=== PATIENT | male | born 1980 | race Caucasian/White ===

== ENCOUNTER 2018-01-10 03:28 | Inpatient (IN) ==
[2018-01-10] MEDS ORDERED: *HR* OxyCODONE Immed Rel 5 MG TABLET PO PRN (07:30)
[2018-01-10] MEDS ORDERED: Naloxone 0.4 MG/ML INJ IVP PRN (07:30)
[2018-01-10] MEDS ORDERED: *HR* HYDROcodone/Acet 5/325 mg TABLET PO PRN (07:30)
[2018-01-10] MEDS ORDERED: Acetaminophen 325 MG TABLET PO PRN (07:30)
[2018-01-10 08:03] LABS: Hematocrit 34.6 % (37.5-50.1); Hemoglobin 11.2 g/dL (12.9-16.9); Mean Corpuscular HGB Conc 32.4 g/dL (31.6-35.5); Mean Corpuscular Hemoglobin 26.3 pg (28.0-33.3); Mean Corpuscular Volume 81.2 fL (83.0-100.0); Mean Platelet Volume 9.4 fL (9.4-12.4); Platelet Count 228 K/mcL (140-400); Red Blood Count 4.26 M/mcL (4.19-5.50)
[2018-01-10 08:18] LABS: BUN/Creatinine Ratio 25 (6-26); Blood Urea Nitrogen 17 mg/dL (6-20); Carbon Dioxide 24 mEq/L (23-29); Chloride 105 mEq/L (98-107); Glucose 358 mg/dL (70-105); Osmolality,Calculated 298 (280-300); Potassium 3.9 mEq/L (3.5-5.1); Sodium 136 mEq/L (136-145); eGFR For African Americans > 60 (> 60); eGFR For Non-African Americans > 60 (> 60)
[2018-01-10] MEDS ORDERED: Dextrose Gel 15 GM/37.5 ML TUBE PO PRN ×2 (08:26)
[2018-01-10] MEDS ORDERED: *HR* Dextrose 50 % in Water (Syg) 50 ML SYRINGE IVP PRN (08:26)
[2018-01-10] MEDS ORDERED: D5% in Water 1,000 ML IVC PRN (08:26)
--- NOTE | 2018-01-10 08:40 | Internal Med History&Physical ---
Date of Encounter: 01/10/18 Time of Encounter: 08:30 Internal Medicine - H&P: HPI Chief complaint: Fever, chills leg pain Admitted From: Hospital to Hospital Transfer (from [facility]) Plans for Post Hospital Care: Home History of present illness: Mr. Noland is a 37 year old male to history of diabetes, hypertension, hyperlipidemia, status post PPM who presented to the ER at [facility] with complaints of fever and chills. He has been coming to the ER here for the past week with similar complaints. He was diagnosed with foot infection and was placed on antibiotics initially. He will return to the ER here as he continued to have fever. At that time the antibiotics were changed. Blood culture was positive for strep group B from 01/02. Repeat blood cultures since then have been negative. Patient reports that the ulcer on his left foot has been present for a while but the ulcer on his right foot has appeared only 2 weeks back. He follows up with podiatry as outpatient for his foot ulcers. He does have some pain although he has chronic numbness related to diabetic neuropathy. He denies any chest pain or palpitations. No nausea or vomiting. No abdominal pain. He was receiving Levaquin as outpatient. Past Med Surg Social Fam HX - Past Medical History Attestation: Yes The following information was validated with the patient. Source: patient Medical history: CHF, diabetes, hyperlipidemia, hypertension Additional medical history: CARDIOMEGALY, EDEL Psychiatric history: anxiety, depression - Past Surgical History Surgical History: pacemaker Additional surgical history: bladder sx,heart cath x6 - Social History Smoking Status: Never smoker Smokeless Tobacco Status: No Alcohol use: none Drug use: none - Family History Father Hx Family Cardiac Disorders: Yes (Heart disease) Mother Hx Family Cardiac Disorders: Yes (heart disease) Hx Family Cancer: Yes (Bladder cancer) Hx Family Endocrine Disorder: Yes (DM) Internal Medicine - H&P: Meds Amitriptyline [Elavil] 25 mg PO HS 01/17/17 [History] Aspirin [Lo-Dose Aspirin EC] 81 mg PO DAILY 01/17/17 [History] Carvedilol [Coreg] 6.25 mg PO BIDWM 01/17/17 [History] Codeine/Butalbital/ASA/Caffein [Fiorinal with Codeine #3 Cap] 1 each PO Q8H PRN 01/17/17 [History] Gabapentin [Neurontin] 800 mg PO QID 01/17/17 [History] Ibuprofen [Motrin] 800 mg PO Q6-8H PRN 01/17/17 [History] Isosorbide MONOnitrate (24 HR) [Imdur] 30 mg PO DAILY 01/17/17 [History] Losartan Potassium [Cozaar] 50 mg PO DAILY 01/17/17 [History] Pyridostigmine Br [Mestinon] 60 mg PO Q8H 01/17/17 [History] Ropinirole HCl [Requip] 0.5 mg PO HS 01/17/17 [History] cloNIDine HCl [CloNIDine HCl] 0.1 mg PO BID PRN 01/17/17 [History] Budesonide/Formoterol 160/4.5 [Symbicort 160/4.5] 2 puff IH BIDR 04/11/17 [ History] Metformin HCl [Metformin HCl ER] 1,000 mg PO BID 04/11/17 [History] Sertraline [Zoloft] 25 mg PO DAILY 04/11/17 [History] Albuterol Sulfate [Proair Hfa] 2 puff IH Q4H PRN 07/11/17 [History] Atorvastatin [Lipitor] 40 mg PO HS 07/11/17 [History] Baclofen [Baclofen] 20 mg PO DAILY 07/11/17 [History] Carbidopa/Levodopa [Carbidopa-Levo 10-100 mg Odt] 1 tab PO DAILY 07/11/17 [ History] Ketoconazole 2% CRM [Nizoral Cream] 1 appl TP BID 07/11/17 [History] Lactobacillus Acidophilus [Acidophilus Probiotic] 1 mg PO DAILY 07/11/17 [ History] Liraglutide [Victoza 2-Raul] 1.2 mg IJ DAILY 07/11/17 [History] Meloxicam [Mobic] 7.5 mg PO BID PRN 07/11/17 [History] Nitroglycerin [Nitrostat] 0.4 mg SL Q5M PRN 07/11/17 [History] Nystatin [Nystatin] 1 appl TP TID PRN 07/11/17 [History] Clindamycin HCl 300 mg PO QID #28 capsule 01/02/18 [Rx] Insulin Regular, Human [Humulin R U-500 Kwikpen] 70 unit SQ QAM 01/06/18 [ History] Insulin Regular, Human [Humulin R U-500 Kwikpen] 90 unit SQ QPM 01/06/18 [ History] levoFLOXacin [Levaquin] 500 mg PO DAILY #10 tablet 01/06/18 [Rx] 3 Allergy/AdvReac Type Severity Reaction Status Date / Time No Known Allergies Allergy Verified 01/06/18 19:53 All Systems PM: A 10-system review of systems was performed and is negative for pertinent findings except as documented above in the HPI. - Constitutional Constitutional: chills, fever(s), no night sweats - EENT Eyes: no change in vision, no discharge, no pain, no photophobia Ears: no ear discharge, no ear pain, no tinnitus Nose, mouth and throat: no dysphagia, no nasal discharge, no neck pain, no sore throat - Cardiovascular Cardiovascular ROS IM: no chest pain, no diaphoresis, no dyspnea, no lightheadedness, no palpitations, no syncope - Respiratory Respiratory: no cough, no dyspnea, no wheezing, no excessive phlegm production - Gastrointestinal Gastrointestinal: no abdominal pain, no diarrhea, no hematemesis, no hematochezia, no melena, no nausea, no vomiting - Musculoskeletal Musculoskeletal ROS IM: no numbness, no tingling - Integumentary Integumentary IM: skin ulcer, no rash, no unusual bruising - Neurological Neurological ROS: no confusion, no convulsions, no focal weakness, no numbness, no tingling, no tremor(s) - Hematologic/Lymphatic Hematologic/Lymphatic: no easy bruising - Constitutional Vitals: Temp Pulse Resp BP Pulse Ox 97.7 F 74 16 128/63 98 01/10/18 07:23 01/10/18 07:23 01/10/18 07:23 01/10/18 07:23 01/10/18 07:23 General appearance: Present: cooperative, mild distress, A&O X 3, morbidly obese , pleasant, answers questions appropriately - Neck Neck exam general surgery: Present: supple, trachea midline. Absent: lymphadenopathy - Respiratory Respiratory exam: Present: CTAB. Absent: accessory muscle use, rales, rhonchi, wheezes - Cardiovascular Cardiovascular exam: Present: RRR, +S1, +S2. Absent: diastolic murmur, gallop, rubs, systolic murmur - GI/Abdominal GI/Abdominal exam: Present: normal bowel sounds, soft, no peritoneal signs. Absent: distended, tenderness - Extremities Exam Extremities exam: Present: warm, radial pulses palpable and symmetrical. Absent : calf tenderness, cyanotic, pedal edema - Neurological Exam Neurological exam: Present: CN II-XII intact, oriented X3, no focal deficits. Absent: facial droop, speech deficit - Skin Skin exam: Present: dry, intact Additional comments: Diabetic foot ulcers noted on both feet. On the left foot, 2 ulcers present over the plantar surface of the great toe. One appears to have scabbed over. The other one is open with clean margins. No discharge noted at this time. Ulcer on the right foot also measures 1 cm to 2 cm in size. Clean margins. No discharge noted. Nontender to palpation. Internal Med - H&P Results - Labs CBC & Chem 7: 01/10/18 07:45 01/10/18 07:45 Labs: Short CBC 01/10/18 Range/Units 07:45 WBC 13.8 H D (4.3-11.1) K/mcL Hgb 11.2 L (12.9-16.9) g/dL Hct 34.6 L (37.5-50.1) % Plt Count 228 (140-400) K/mcL BMP 01/10/18 07:45 Sodium 136 Potassium 3.9 Chloride 105 Carbon Dioxide 24 BUN 17 Creatinine 0.68 L Glucose 358 H Calcium 8.0 L - Assessment and plan (1) Sepsis Current Visit: Yes Status: Acute Assessment and plan: Patient presenting with sepsis. His vital signs at [facility] showed a blood pressure of 103.2, heart rate 113. His lactic acid was initially greater than 2 blood improved after he received IV fluids. Most likely related to diabetic foot ulcer and bacteremia. We will treat with IV antibiotics. Failed outpatient treatment. High risk for complications. Qualifiers: Sepsis type: Streptococcus group B Qualified Code(s): A40.1 - Sepsis due to streptococcus, group B (2) Diabetic foot ulcer Current Visit: Yes Status: Acute Assessment and plan: Bilateral diabetic foot ulcers. Possible source of infection. We will consult podiatry for evaluation. Qualifiers: Diabetic foot ulcer location: toe Diabetes mellitus type: type 1 Laterality: unspecified laterality Non-pressure ulcer stage: limited to breakdown of skin Qualified Code(s): E10.621 - Type 1 diabetes mellitus with foot ulcer; L97.501 - Non-pressure chronic ulcer of other part of unspecified foot limited to breakdown of skin (3) Bacteremia Current Visit: Yes Status: Acute Assessment and plan: Recent strep group B bacteremia. Repeat cultures have been negative. We will follow cultures from [facility]. We will place on IV antibiotics for now. Monitor vital signs closely. (4) Diabetes Current Visit: Yes Status: Chronic Assessment and plan: Uncontrolled. Place patient on Levemir, sliding scale insulin. Monitor blood sugars closely. I expect blood sugars will be difficult to control due to acute illness and sepsis. Qualifiers: Diabetes mellitus type: type 1 Diabetes mellitus complication status: with neurologic complications Diabetes mellitus complication detail: with polyneuropathy Qualified Code(s): E10.42 - Type 1 diabetes mellitus with diabetic polyneuropathy (5) Hypertension Current Visit: Yes Status: Chronic Assessment and plan: Blood pressure is well controlled at this time. We will continue home medications. Monitor blood pressure closely. Qualifiers: Hypertension type: essential hypertension Qualified Code(s): I10 - Essential (primary) hypertension (6) DVT prophylaxis Current Visit: Yes Status: Acute Assessment and plan: With subcutaneous heparin - Time Spent With Patient Total time spent is greater than 50% in coordination of care (as documented) at patient's floor/unit and/or counseling patient:
[2018-01-10] MEDS ORDERED: Nitroglycerin 0.4 MG TAB.SUBL SL PRN (08:46)
[2018-01-10] MEDS ORDERED: Baclofen 10 MG TABLET PO SCH (09:00)
[2018-01-10] MEDS ORDERED: Isosorbide MONOnitrate (24 HR) 30 MG TAB.ER.24H PO SCH (09:00)
[2018-01-10] MEDS ORDERED: Aspirin Enteric Coated 81 MG Tablet PO SCH (09:00)
[2018-01-10] MEDS ORDERED: Lactobacillus 1 EACH CAP.SPRINK PO SCH (09:00)
[2018-01-10 09:41] LABS: Lymphocytes # 1.1 K/mcL (0.6-4.6); Neutrophils # 12.1 K/mcL (1.6-8.9); Platelet Estimate Normal (Normal)
[2018-01-10] MEDS: Ringers Solution, Lactated 1,000 ML IVC SCH (10:22)
[2018-01-10] MEDS: Gabapentin 400 MG CAPSULE PO SCH ×4 (10:23→22:50)
[2018-01-10] MEDS: Pyridostigmine Br 60 MG TABLET PO SCH ×2 (10:25→18:53)
[2018-01-10] MEDS: Ampicillin/Sulbactam 3,000 MG in 0.9 % Sodium Chloride Mini Bag 100 ML IVPB SCH ×2 (10:27→18:53)
[2018-01-10] MEDS: Insulin LISPRO 300 UNITS/3 ML VIAL SQ SCH ×6 (10:32→18:55)
[2018-01-10] MEDS: Insulin DETEMIR 100 UNIT/ML X5UNITS SQ SCH ×2 (10:33→22:44)
[2018-01-10] MEDS: Budesonide/Formoterol 160/4.5 MDI IH SCH ×2 (11:37→22:42)
[2018-01-10 13:54] LABS: Troponin I < 0.03 ng/mL (< 0.04)
[2018-01-10] MEDS ORDERED: Perflutren Lipid Microsphere 1.3 ML in 0.9 % Sodium Chloride 8.7 ML IVP ONE (14:37)
[2018-01-10] MEDS ORDERED: Gadolinium Contrast Agent (WT Based) IV PRN (15:18)
[2018-01-10] MEDS: *HR* Heparin 5,000 UNIT/ML VIAL SQ SCH ×2 (15:35→22:51)
--- NOTE | 2018-01-10 15:36 | Podiatry Consult Note ---
Date of Encounter: 01/10/18 Time of Encounter: 12:00 Assessment and Plan (1) Diabetic foot ulcer Status: Inactive Assessment: Diabetic foot ulcerations to bilateral great toes Plan: Assessment complete at bedside Known positive blood cultures obtained There is purulent drainage and foul odor noted to left foot great toe ulceration Due to positive blood cultures will obtain MRI of bilateral great toe ulcerations to assess for underlying osteomyelitis or abscess formation Betadine applied to bilateral wounds Maxsorb AG applied to wound of left great toe with bulk dressing- will write orders for BID changes Right foot wound, adaptic and bulk dressing applied. Orders for MRI placed however patient has pacer Will obtain CT imaging at this time. Qualifiers: Diabetic foot ulcer location: toe Diabetes mellitus type: type 1 Laterality: unspecified laterality Non-pressure ulcer stage: limited to breakdown of skin Qualified Code(s): E10.621 - Type 1 diabetes mellitus with foot ulcer; L97.501 - Non-pressure chronic ulcer of other part of unspecified foot limited to breakdown of skin History of Present Illness HPI: Mr. Noland is a 37 year old male to history of diabetes, hypertension, hyperlipidemia, status post PPM who presented to the ER at [facility] with complaints of fever and chills. He has been coming to the ER here for the past week with similar complaints. He was diagnosed with foot infection and was placed on antibiotics initially. Patient was also seen in podiatry clinic 3 days ago and alerted of positive blood cultures per KULDIP Rodriguez and advised on need to start IV antibiotics. Blood culture was positive for strep group B from 01/02. Repeat blood cultures since then have been negative. Patient reports that the ulcer on his left foot has been present for a while, unknown length of time, but the ulcer on his right foot has appeared only 2 weeks back. Patient states he has occasional pain however reports profound numbness from neuropathy , patient currently reporting chest pain, states it is a 2-3/10- nurse has been contacted and states they are obtaining orders. No nausea or vomiting. No abdominal pain. He was receiving Levaquin as outpatient. No on vanc and zosyn. Patient was told per nurse his glucose very elevated, on arrival to the room patient is eating a cream filled donut. Past Med Surg Social Fam HX - Past Medical History Medical history: CHF, diabetes, hyperlipidemia, hypertension Additional medical history: CARDIOMEGALY, EDEL Psychiatric history: anxiety, depression - Past Surgical History Surgical History: pacemaker Additional surgical history: bladder sx,heart cath x6 - Social History Smoking Status: Never smoker Smokeless Tobacco Status: No Alcohol use: none Drug use: none - Family History Father Hx Family Cardiac Disorders: Yes (Heart disease) Mother Hx Family Cardiac Disorders: Yes (heart disease) Hx Family Cancer: Yes (Bladder cancer) Hx Family Endocrine Disorder: Yes (DM) Medications and Allergies Amitriptyline [Elavil] 25 mg PO HS 01/17/17 [History] Aspirin [Lo-Dose Aspirin EC] 81 mg PO DAILY 01/17/17 [History] Carvedilol [Coreg] 6.25 mg PO BIDWM 01/17/17 [History] Codeine/Butalbital/ASA/Caffein [Fiorinal with Codeine #3 Cap] 1 each PO Q8H PRN 01/17/17 [History] Gabapentin [Neurontin] 800 mg PO QID 01/17/17 [History] Ibuprofen [Motrin] 800 mg PO Q6-8H PRN 01/17/17 [History] Isosorbide MONOnitrate (24 HR) [Imdur] 30 mg PO DAILY 01/17/17 [History] Losartan Potassium [Cozaar] 50 mg PO DAILY 01/17/17 [History] Pyridostigmine Br [Mestinon] 60 mg PO Q8H 01/17/17 [History] Ropinirole HCl [Requip] 0.5 mg PO HS 01/17/17 [History] cloNIDine HCl [CloNIDine HCl] 0.1 mg PO BID PRN 01/17/17 [History] Budesonide/Formoterol 160/4.5 [Symbicort 160/4.5] 2 puff IH BIDR 04/11/17 [ History] Metformin HCl [Metformin HCl ER] 1,000 mg PO BID 04/11/17 [History] Sertraline [Zoloft] 25 mg PO DAILY 04/11/17 [History] Albuterol Sulfate [Proair Hfa] 2 puff IH Q4H PRN 07/11/17 [History] Atorvastatin [Lipitor] 40 mg PO HS 07/11/17 [History] Baclofen [Baclofen] 20 mg PO DAILY 07/11/17 [History] Carbidopa/Levodopa [Carbidopa-Levo 10-100 mg Odt] 1 tab PO DAILY 07/11/17 [ History] Ketoconazole 2% CRM [Nizoral Cream] 1 appl TP BID 07/11/17 [History] Lactobacillus Acidophilus [Acidophilus Probiotic] 1 mg PO DAILY 07/11/17 [ History] Liraglutide [Victoza 2-Raul] 1.2 mg IJ DAILY 07/11/17 [History] Meloxicam [Mobic] 7.5 mg PO BID PRN 07/11/17 [History] Nitroglycerin [Nitrostat] 0.4 mg SL Q5M PRN 07/11/17 [History] Nystatin [Nystatin] 1 appl TP TID PRN 07/11/17 [History] Clindamycin HCl 300 mg PO QID #28 capsule 01/02/18 [Rx] Insulin Regular, Human [Humulin R U-500 Kwikpen] 70 unit SQ QAM 01/06/18 [ History] Insulin Regular, Human [Humulin R U-500 Kwikpen] 90 unit SQ QPM 01/06/18 [ History] levoFLOXacin [Levaquin] 500 mg PO DAILY #10 tablet 01/06/18 [Rx] Levofloxacin [Levaquin] 750 mg PO DAILY #30 tablet 01/14/18 [Rx] Vancomycin [Vancocin (wt based)] 1,500 mg IV DAILY 30 Days vial 01/14/18 [Rx] 3 Allergy/AdvReac Type Severity Reaction Status Date / Time No Known Allergies Allergy Verified 01/06/18 19:53 All Systems Reviewed: The remainder of the systems were reviewed and are negative Physical Exam - Constitutional Vitals: Temp Pulse Resp BP Pulse Ox 97.8 F 69 16 137/79 96 01/10/18 13:41 01/10/18 13:41 01/10/18 13:41 01/10/18 13:41 01/10/18 13:41 Exam: General Examination: CONSTITUTIONAL: Alert, oriented, in no acute distress, non-toxic. EXTREMITIES: CFT 3 seconds all toes. Edema +1 and pedal pulses palpable. SKIN: Skin with decreased turgor, decreased subcutaneous tissue, skin thin and shiny with trophic changes associated with comorbidities as described in history.. NEUROLOGIC: Grossly decreased sensation, loss of protective sensation noted. SKIN: RIGHT GREAT TOE- There is a small ulceration noted to plantar aspect just proximal to the IP joint. 0.2cmx0.2cmx0.2cm ulceration. Scant serous drainage. No warmth, tenderness, erythema or edema. No odor. LEFT GREAT TOE: 2 ulcerations noted, plantar aspect of great toe, distal aspect of toe, 0.2xmx0.2cmx0.1cm ulceration with bloody drainage noted, minimal surrounding edema or erythema. Ulceration sub IP joint measuring 0.4cmx0.4cmx0.3cm with thick purulent drainage and odor, minimal surrounding edema or erythema. Mild warmth. No streaking or ascending cellulitis. Hyperkeratosis noted with undermining of 0.3cm 10oclock to 2oclock with distal aspect of toe being 12oclock. MUSCULOSKELETAL- muscle strength 5/5 and equal bilaterally. Results - Labs Result Diagrams: 01/14/18 04:07 01/14/18 04:07 Labs: Abnormal lab results WBC 13.8 K/mcL (4.3-11.1) H D 01/10/18 07:45 Hgb 11.2 g/dL (12.9-16.9) L 01/10/18 07:45 Hct 34.6 % (37.5-50.1) L 01/10/18 07:45 MCV 81.2 fL (83.0-100.0) L 01/10/18 07:45 MCH 26.3 pg (28.0-33.3) L 01/10/18 07:45 Band Neutrophils % 6.0 % (0-4) H 01/10/18 07:45 Neutrophils # 12.1 K/mcL (1.6-8.9) H 01/10/18 07:45 Creatinine 0.68 mg/dL (0.70-1.30) L 01/10/18 07:45 Glucose 358 mg/dL (70-105) H 01/10/18 07:45 POC Glucose 383 mg/dL (70-99) H 01/10/18 05:48 Calcium 8.0 mg/dL (8.6-10.3) L 01/10/18 07:45 H & H 01/10/18 Range/Units 07:45 Hgb 11.2 L (12.9-16.9) g/dL Hct 34.6 L (37.5-50.1) % All other labs normal. Consult Discharge Plan - Plan Instructions: Vancomycin (Injection), Levofloxacin (By mouth), Heart Failure ( DC), Cellulitis (DC), Diabetic Foot Care (DC), Sepsis (DC), Chronic Hypertension (DC) Additional Instructions: Take antibiotics as prescribed and follow up with PCP in 3-5 days. Keep follow up appointment with surgeon as scheduled. Follow up with ID on 01/30/18 at 0900. Return to emergency department if symptoms worsen or if new concerns arise. Referrals: Nakia Petty CNP [Advanced Practice Nurse] - 01/30/18 9:00 am Dominga Ewing CNP [Primary Care Provider] - 01/13/18 11:15 am Prescriptions: Levofloxacin [Levaquin] 750 mg PO DAILY #30 tablet Vancomycin [Vancocin (wt based)] 1,500 mg IV DAILY 30 Days vial
[2018-01-10] MEDS ORDERED: Isovue-370 500 ML INFUS..BTL IV ONE (16:19)
[2018-01-10] MEDS ORDERED: Insulin LISPRO 300 UNITS/3 ML VIAL SQ SCH (21:00)
[2018-01-11] MEDS: Ampicillin/Sulbactam 3,000 MG in 0.9 % Sodium Chloride Mini Bag 100 ML IVPB SCH ×5 (01:08→23:45)
[2018-01-11] MEDS: Pyridostigmine Br 60 MG TABLET PO SCH ×4 (01:08→23:56)
[2018-01-11] MEDS: Ringers Solution, Lactated 1,000 ML IVC SCH ×3 (03:27→21:19)
[2018-01-11 06:27] LABS: Basophils % 0.3 %; Eosinophils # 0.1 K/mcL (0.0-0.6); Eosinophils % 1.3 %; Hematocrit 33.1 % (37.5-50.1); Hemoglobin 10.6 g/dL (12.9-16.9); Immature Granulocytes % 1.3 % (0-4); Lymphocytes # 1.1 K/mcL (0.6-4.6); Lymphocytes % 15.2 %; Mean Corpuscular Hemoglobin 25.6 pg (28.0-33.3); Mean Platelet Volume 9.7 fL (9.4-12.4); Monocytes # 0.7 K/mcL (0.0-1.3); Monocytes % 9.5 %; Neutrophils # 5.2 K/mcL (1.6-8.9); Platelet Count 236 K/mcL (140-400); Red Blood Count 4.14 M/mcL (4.19-5.50); Red Cell Distribution Width 14.1 % (11.5-14.5); Segmented Neutrophils % 72.4 %
[2018-01-11 06:44] LABS: BUN/Creatinine Ratio 31 (6-26); Blood Urea Nitrogen 15 mg/dL (6-20); Calcium 8.2 mg/dL (8.6-10.3); Carbon Dioxide 26 mEq/L (23-29); Chloride 105 mEq/L (98-107); Glucose 230 mg/dL (70-105); Osmolality,Calculated 292 (280-300); Potassium 3.8 mEq/L (3.5-5.1); Sodium 137 mEq/L (136-145); eGFR For African Americans > 60 (> 60); eGFR For Non-African Americans > 60 (> 60)
--- NOTE | 2018-01-11 07:10 | Anesthesia Evaluation PreOp ---
Date of Encounter: 01/11/18 Time of Encounter: 07:30 - Past History Planned Operation: Incision and Drainage Foot Cardiac History: CHF, HTN, Arrhythmia, Pacemaker/ICD Pulmonary History: Asthma, EDEL Dx [employer]EL[employer] History: Denies Any Significant HX Other Medical History: Diabetes Type II, Other (Morbid Obesity) Anesthesia History: No Prior Anesthetic Complications Alcohol Use: none Drug use: none Medications and Allergies Amitriptyline [Elavil] 25 mg PO HS 01/17/17 [History] Aspirin [Lo-Dose Aspirin EC] 81 mg PO DAILY 01/17/17 [History] Carvedilol [Coreg] 6.25 mg PO BIDWM 01/17/17 [History] Codeine/Butalbital/ASA/Caffein [Fiorinal with Codeine #3 Cap] 1 each PO Q8H PRN 01/17/17 [History] Gabapentin [Neurontin] 800 mg PO QID 01/17/17 [History] Ibuprofen [Motrin] 800 mg PO Q6-8H PRN 01/17/17 [History] Isosorbide MONOnitrate (24 HR) [Imdur] 30 mg PO DAILY 01/17/17 [History] Losartan Potassium [Cozaar] 50 mg PO DAILY 01/17/17 [History] Pyridostigmine Br [Mestinon] 60 mg PO Q8H 01/17/17 [History] Ropinirole HCl [Requip] 0.5 mg PO HS 01/17/17 [History] cloNIDine HCl [CloNIDine HCl] 0.1 mg PO BID PRN 01/17/17 [History] Budesonide/Formoterol 160/4.5 [Symbicort 160/4.5] 2 puff IH BIDR 04/11/17 [ History] Metformin HCl [Metformin HCl ER] 1,000 mg PO BID 04/11/17 [History] Sertraline [Zoloft] 25 mg PO DAILY 04/11/17 [History] Albuterol Sulfate [Proair Hfa] 2 puff IH Q4H PRN 07/11/17 [History] Atorvastatin [Lipitor] 40 mg PO HS 07/11/17 [History] Baclofen [Baclofen] 20 mg PO DAILY 07/11/17 [History] Carbidopa/Levodopa [Carbidopa-Levo 10-100 mg Odt] 1 tab PO DAILY 07/11/17 [ History] Ketoconazole 2% CRM [Nizoral Cream] 1 appl TP BID 07/11/17 [History] Lactobacillus Acidophilus [Acidophilus Probiotic] 1 mg PO DAILY 07/11/17 [ History] Liraglutide [Victoza 2-Raul] 1.2 mg IJ DAILY 07/11/17 [History] Meloxicam [Mobic] 7.5 mg PO BID PRN 07/11/17 [History] Nitroglycerin [Nitrostat] 0.4 mg SL Q5M PRN 07/11/17 [History] Nystatin [Nystatin] 1 appl TP TID PRN 07/11/17 [History] Clindamycin HCl 300 mg PO QID #28 capsule 01/02/18 [Rx] Insulin Regular, Human [Humulin R U-500 Kwikpen] 70 unit SQ QAM 01/06/18 [ History] Insulin Regular, Human [Humulin R U-500 Kwikpen] 90 unit SQ QPM 01/06/18 [ History] levoFLOXacin [Levaquin] 500 mg PO DAILY #10 tablet 01/06/18 [Rx] 3 Allergy/AdvReac Type Severity Reaction Status Date / Time No Known Allergies Allergy Verified 01/06/18 19:53 - Meds/Allergy Pre-op Review Medications Reviewed: Yes Allergies Reviewed: Yes Beta Blockers on Current Med List: Yes (On Coreg given today 06) Anesthesia Results - Labs 01/11/18 05:55 01/11/18 05:55 - Imaging EKG: report reviewed (SR) Additional studies: ECHO 2017 EF 55%, no pulm htn Anesthesia Exam O2 Sat Weight 167.8 kg O2 Sat by Pulse Oximetry 95 O2 Sat by Pulse Oximetry 96 O2 Sat by Pulse Oximetry 97 O2 Sat by Pulse Oximetry 93 O2 Sat by Pulse Oximetry 98 O2 Sat by Pulse Oximetry 98 O2 Sat by Pulse Oximetry 96 O2 Sat by Pulse Oximetry 96 O2 Sat by Pulse Oximetry 98 O2 Sat by Pulse Oximetry 98 Vital Signs Temp Pulse Resp BP Pulse Ox 98.7 F 75 16 120/74 98 01/10/18 05:35 01/10/18 05:35 01/10/18 05:35 01/10/18 05:35 01/10/18 05:35 Vital Signs/O2 Sat/Glucose, Most Current Temp Pulse Resp BP Pulse Ox 01/11/18 06:40 97.8 F 60 18 152/102 95 01/11/18 04:00 98.0 F 60 18 133/92 96 Height: 6'1 Weight: 369 lbs NPO (# of Hours): MN Pain Scale: 0 - HEENT Pupil (Motor): Pupils equal, EOMI Mallampati: III Teeth: Normal Oral Opening: Greater than 3 - [employer] LOC: Oriented [employer] Motor: Normal RUE, Normal LUE, Normal RLE, Normal LLE, Normal Face [employer] Sensory: Normal: RUE, LUE, LLE, Face, Deficit: RLE - Cardiac Rhythm: Regular Murmur: None JVD: No Carotid Bruit: No - Pulmonary Breath Sounds: bilateral Clear Respiratory Effort: Symmetrical Anesthesia Assess/Plan ASA Score: 4 (Hx CHF HTN EDEL Morbid Obesity DM poorly controlled) Modified Ruperto Scale for Level of Consciousness: Cooperative, oriented, and tranquil Anesthetic Plan: MAC Monitoring Plan: Standard Monitors Recovery Plan: PACU (Discussed MAC, possible GA, agrees to proceed)
[2018-01-11] MEDS: *HR* Heparin 5,000 UNIT/ML VIAL SQ SCH ×3 (07:49→23:51)
[2018-01-11] MEDS: Insulin LISPRO 300 UNITS/3 ML VIAL SQ SCH ×6 (07:49→21:09)
[2018-01-11] MEDS ORDERED: *HR* Midazolam HCl 2 MG/2 ML VIAL ONE (07:55)
[2018-01-11] MEDS ORDERED: *HR* FentaNYL (PF) 100 MCG/2 ML VIAL ONE (07:55)
[2018-01-11] MEDS ORDERED: Acetaminophen IV 1,000 MG/100 ML INFUS..BTL ONE (07:56)
[2018-01-11] MEDS ORDERED: Famotidine 20 MG/2 ML VIAL ONE (07:56)
--- NOTE | 2018-01-11 08:03 | Podiatry Progress Note ---
Date of Encounter: 01/11/18 Time of Encounter: 07:00 - Assessment and Plan (1) Type 2 diabetes mellitus with foot ulcer Current Visit: Yes Status: Acute see below Qualifiers: Diabetes mellitus shelter insulin use: with shelter use Qualified Code( s): E11.621 - Type 2 diabetes mellitus with foot ulcer; L97.509 - Non-pressure chronic ulcer of other part of unspecified foot with unspecified severity; Z79.4 - [facility] (current) use of insulin (2) Chronic ulcer of left foot with fat layer exposed Current Visit: Yes Status: Acute left foot ulceration into subcutaneous tissue with purulent drainage/diabetic foot infection. per patient erythema to groin prior to IV abx. right hallux edematous without erythema but always looks like this and no change from previous, left foot big toe is where infection (erythema and streaking to groin ) began. I had a thorough review with the patient regarding his history/condition, CT scan, my findings and treatment options. We discussed an incision and drainage of the left big toe as this is been reported as the area where his infection this admission and has begun. It appears that the right hallux is at the baseline with previously treated osteomyelitis. Patient does not want to do anything to this toe. The left hallux incision and drainage and bone biopsy nature of the procedures discussed, risks versus benefits potential complications consequences discussed. No guarantees made as to the outcome. He understood that he could have persistent infection in the left toe and this procedure is not addressing anything in the right foot big toe which he says is unchanged. All of his questions were answered and the informed consent was signed. It was made clear that he could need subsequent surgery in the future. Nothing by mouth. Subjective Interval history: 37 year old diabetic male with pacemaker came to the ER at [facility] with complaints of fever and chills. He has been coming to the ER here for the past week with similar complaints. He was diagnosed with foot infection and was placed on antibiotics initially. He says he had redness going from his left big toe all the way to his groin area. Patient was also seen in podiatry clinic recently and alerted of positive blood cultures found by podiatry MANAGER OCCUPATIONAL, Michael and advised on need to start IV antibiotics. Blood culture was positive for strep group B from 01/02. Repeat blood cultures since then have been negative. Patient reports that the ulcer on his left foot has been present for a while, unknown length of time. He says his right foot big toe he has been dealing with for a while (months) and it has not been red and not swollen more than normal. He has been seeing Dr. Galeano for a wound on the right foot toe. He says all of the redness and issues have been from the left foot big toe. Patient states he has occasional pain however reports profound neuropathy, No nausea or vomiting. Objective - Vital Signs Vital Signs: Vital Signs Temp Pulse Resp BP Pulse Ox 01/11/18 06:40 97.8 F 60 18 152/102 95 01/11/18 04:00 98.0 F 60 18 133/92 96 01/11/18 01:36 98.3 F 59 18 125/85 97 01/10/18 22:43 18 93 01/10/18 22:36 98.1 F 73 18 138/84 98 01/10/18 16:50 97.8 F 68 15 139/80 98 01/10/18 13:41 97.8 F 69 16 137/79 96 01/10/18 11:38 16 96 01/10/18 10:22 98 F 67 17 126/85 98 Intake and Output 01/10/18 01/11/18 01/11/18 23:59 07:59 15:59 Intake Total 1580 / 1580 100 / 100 Output Total 500 / 500 Balance 1580 / 1580 -400 / -400 Intake: IV Fluids 1100 / 1100 100 / 100 Lactated Ringers 1,000 ML @ 75 1000 / 1000 mls/hr IVC .[id number] [facility] Rx#: [id number] Unasyn 3,000 MG In 0.9 % Sodium 100 / 100 100 / 100 Chloride (Mini-Bag +) 100 ML @ 200 mls/hr IVPB Q6HR [facility] Rx#: [id number] Oral 480 / 480 Output: Urine 500 / 500 Other: Meal Lunch Percent of Meal Consumed 100% # Voids 1 2 Weight 167.8 kg Blood Glucose* 210 242 Patient Weight 01/11/18 23:59 Weight 167.8 kg - Exam Exam: well developed and nourished male in no acute distress Vasc: CFT < 3 sec x 5 digits b/l feet. feet are warm to touch. +pedal hairgrowth. left plantar hallux ulceration with purulent drainage [id number]. mild erythema plantarly, resolved ascending erythema. right hallux ulceration plantarly no erythema, hallux is edematous. discomfort with compression of left hallux, absent protective sensation. CT chronic osteomyelitis right hallux, left no osteomyelitis. - Lab Result Diagrams: 01/11/18 05:55 01/11/18 05:55 Labs: Abnormal lab results RBC 4.14 M/mcL (4.19-5.50) L 01/11/18 05:55 Hgb 10.6 g/dL (12.9-16.9) L 01/11/18 05:55 Hct 33.1 % (37.5-50.1) L 01/11/18 05:55 MCV 80.0 fL (83.0-100.0) L 01/11/18 05:55 MCH 25.6 pg (28.0-33.3) L 01/11/18 05:55 Band Neutrophils % 6.0 % (0-4) H 01/10/18 07:45 Creatinine 0.48 mg/dL (0.70-1.30) L 01/11/18 05:55 BUN/Creatinine Ratio 31 (6-26) H 01/11/18 05:55 Glucose 230 mg/dL (70-105) H 01/11/18 05:55 POC Glucose 323 mg/dL (70-99) H 01/10/18 16:50 Calcium 8.2 mg/dL (8.6-10.3) L 01/11/18 05:55 Consult Discharge Plan - Plan Referrals: Dominga Ewing CNP [Primary Care Provider] - 01/13/18 11:15 am
[2018-01-11] MEDS ORDERED: Vancomycin 1,000 MG VIAL ONE (08:05)
[2018-01-11] MEDS ORDERED: Lidocaine 1% 20 ML MDV ONE (08:05)
[2018-01-11] MEDS ORDERED: Bupivacaine-MPF 0.25% 10 ML VIAL ONE (08:05)
[2018-01-11] MEDS ORDERED: Propofol 500 MG/50 ML INFUS..BTL ONE (08:44)
[2018-01-11] MEDS ORDERED: *HR* Dextrose 50 % in Water (Syg) 50 ML SYRINGE IVP PRN (08:59)
[2018-01-11] MEDS ORDERED: Dextrose Gel 15 GM/37.5 ML TUBE PO PRN ×2 (08:59)
[2018-01-11] MEDS ORDERED: D5% in Water 1,000 ML IVC PRN (08:59)
[2018-01-11] MEDS ORDERED: Naloxone 0.4 MG/ML INJ IVP PRN (08:59)
[2018-01-11] MEDS ORDERED: *HR* HYDROcodone/Acet 5/325 mg TABLET PO PRN (08:59)
[2018-01-11] MEDS ORDERED: Nitroglycerin 0.4 MG TAB.SUBL SL PRN (08:59)
[2018-01-11] MEDS ORDERED: Baclofen 10 MG TABLET PO SCH (09:00)
--- NOTE | 2018-01-11 09:00 | Anesthesia Evaluation Post Op ---
Date of Encounter: 01/11/18 Time of Encounter: 09:00 - Vital Signs Vital Signs: Vital Signs/O2 Sat/Glucose, Most Current Temp Pulse Resp BP Pulse Ox 01/11/18 06:40 97.8 F 60 18 152/102 95 - Lungs Lungs: Clear Ascult./Percussion - Airway Airway: Non-obstructed - Cardiovascular Regular Rate - Mental Status Mental Status: Alert & Oriented, Answers Appropriately - Pain Pain Scale: 0 - Nausea Vomiting Nausea Vomiting: Not Present - Hydration Hydration: NPO - Discharge PostOp Status: Transfer Patient to floor
--- NOTE | 2018-01-11 09:03 | Operative Note ---
Date of procedure: 01/11/18 Pre-op diagnosis: diabetic foot infection, left hallux ulceration [id number] Post-op diagnosis: same Procedure: incision and drainage left hallux bone biopsy left hallux Implants: none Complications: none Anesthesia: MAC Local Anesthetics: 1% Lidocaine HCL SubQ (cc) Surgeon: Anthony Jenkins Was there an historian research assistant present: No Estimated blood loss (cc): 3 Specimen: left hallux culture, path-left big toe bone Condition: stable Disposition: PACU Procedure in Detail: Indications: 37-year-old diabetic male admitted with bacteremia and reported cellulitis and streaking going from his left big toe to his groin. Erythema was resolving with IV antibiotics. There was purulent drainage in the ulceration on the plantar aspect of the left hallux. Unable to have MRI due to pacemaker. Patient brought to the operating room for an incision and drainage of the left hallux and bone biopsy. Nature procedure, risks first benefits potential complications and consequences of surgery and his condition discussed at length. No guarantees made as to the outcome. Patient understood that he could require more surgery. Informed consent was signed and all questions answered. Patient was brought to the operating room placed on operating room table in the supine position 10 mL of 1% lidocaine plain was injected into the patient's left foot. Following procedures then began. Incision and drainage left foot. Attention was directed the plantar aspect of the patient's left hallux where an incision was made through the ulceration into the subcutaneous tissue which did release some purulent drainage from the plantar aspect of the hallux. Cultures were taken and sent to microbiology. The area was flushed with normal sterile saline with vancomycin. Bone biopsy left hallux. A separate incision was made on the dorsal aspect of the patient's left hallux where there was no erythema. The stab incision was made with a #15 blade down to the level of the bone and the Jamshidi needle was inserted and obtained specimens for bone biopsy. The specimens were sent to pathology. Prolene was used to close the stab incision site. The left hallux was packed open plantarly using gauze. Adaptic was use of the dorsal stab incision site. Remaining bandage consisted of 4 x 4 gauze, Kerlix and an Torres wrap. A she tolerated the anesthesia and the procedure well and was escorted the recovery room with vital signs stable and vascular status intact to the left foot noted by instant capillary refill time to all digits of the left foot. Adequate hemostasis was present at all sites. Patient will return to the floor where he will continue IV antibiotics.
[2018-01-11] MEDS: Budesonide/Formoterol 160/4.5 MDI IH SCH ×2 (10:23→20:42)
[2018-01-11] MEDS: Lactobacillus 1 EACH CAP.SPRINK PO SCH (11:06)
[2018-01-11] MEDS: Aspirin Enteric Coated 81 MG Tablet PO SCH (11:06)
[2018-01-11] MEDS: Isosorbide MONOnitrate (24 HR) 30 MG TAB.ER.24H PO SCH (11:06)
[2018-01-11] MEDS: Gabapentin 400 MG CAPSULE PO SCH ×4 (11:07→21:05)
[2018-01-11] MEDS: Insulin DETEMIR 100 UNIT/ML X5UNITS SQ SCH ×2 (11:08→21:10)
--- NOTE | 2018-01-11 11:33 | Electrocardiograph Report ---
[place] [id number] Test Date: 2018-01-10 Pat Name: Livan Noland Department: 111 Room: 2NE28 Gender: M Commodities Manager: : [id number] Requested By: Mona Martin Order Number: [id number] Reading MD: Silviano Adorno Measurements Intervals Gallina Rate: 73 P: 31 NE: 210 QRS: 8 QRSD: 117 T: 4 QT: 400 QTc: 426 Interpretive Statements SINUS RHYTHM WITH FIRST DEGREE AV BLOCK MODERATE INTRAVENTRICULAR CONDUCTION DELAY Electronically Signed On 01-11-2018 11:32:21 EDT by Silviano Adorno
--- NOTE | 2018-01-11 13:36 | Internal Med Progress Note ---
Date of Encounter: 01/11/18 Time of Encounter: 13:00 - Assessment and plan (1) Diabetic foot ulcer Current Visit: Yes Status: Acute Assessment and plan: Bilateral diabetic foot ulcers. Possible source of infection. We will consult podiatry for evaluation. 01/11: POD #0 bone biopsy of left Hallux Pain is controlled. Await culture data. Podiatry input is appreciated. Qualifiers: Diabetic foot ulcer location: toe Diabetes mellitus type: type 1 Laterality: unspecified laterality Non-pressure ulcer stage: limited to breakdown of skin Qualified Code(s): E10.621 - Type 1 diabetes mellitus with foot ulcer; L97.501 - Non-pressure chronic ulcer of other part of unspecified foot limited to breakdown of skin (2) Bacteremia Current Visit: Yes Status: Acute Assessment and plan: Recent strep group B bacteremia. Repeat cultures have been negative. We will follow cultures from [facility]. We will place on IV antibiotics for now. Monitor vital signs closely. 01/11: Patient was started on Unasyn on admission. Currently day #2 of IV Unasyn. As of yet unclear exactly what he received prior to coming here. We will need to repeat blood cultures to ensure clearance. We will also need to consult infectious diseases. (3) Sepsis Current Visit: Yes Status: Acute Assessment and plan: Patient presenting with sepsis. His vital signs at [facility] showed a blood pressure of 103.2, heart rate 113. His lactic acid was initially greater than 2 blood improved after he received IV fluids. Most likely related to diabetic foot ulcer and bacteremia. We will treat with IV antibiotics. Failed outpatient treatment. High risk for complications. 01/11: Sepsis resolving. Continue current management. Qualifiers: Sepsis type: Streptococcus group B Qualified Code(s): A40.1 - Sepsis due to streptococcus, group B (4) Diabetes Current Visit: Yes Status: Chronic Assessment and plan: Uncontrolled. Place patient on Levemir, sliding scale insulin. Monitor blood sugars closely. I expect blood sugars will be difficult to control due to acute illness and sepsis. 01/11: Continue basal bolus insulin and adjust accordingly. He was nothing by mouth for surgery, therefore we will continue to monitor prior to making additional adjustments. Check A1c. Qualifiers: Diabetes mellitus type: type 1 Diabetes mellitus complication status: with neurologic complications Diabetes mellitus complication detail: with polyneuropathy Qualified Code(s): E10.42 - Type 1 diabetes mellitus with diabetic polyneuropathy (5) DVT prophylaxis Current Visit: Yes Status: Acute Assessment and plan: With subcutaneous heparin (6) HTN (hypertension) Current Visit: Yes Status: Acute Assessment and plan: On Cozaar and Imdur, and Coreg. Monitor. May need to uptitrate as BP elevated. Qualifiers: Hypertension type: essential hypertension Qualified Code(s): I10 - Essential (primary) hypertension (7) EDEL (obstructive sleep apnea) Current Visit: Yes Status: Acute Assessment and plan: Not on CPAP - Time Spent With Patient Total time spent is greater than 50% in coordination of care (as documented) at patient's floor/unit and/or counseling patient: 25 - 35 minutes - Subjective Interval history: Mr. Noland is a 37 year old male to history of diabetes, hypertension, hyperlipidemia, status post PPM who presented to the ER at [facility] with complaints of fever and chills. He has been coming to the ER here for the past week with similar complaints. He was diagnosed with foot infection and was placed on antibiotics initially. He will return to the ER here as he continued to have fever. At that time the antibiotics were changed. Blood culture was positive for strep group B from 01/02. Repeat blood cultures since then have been negative. Patient reports that the ulcer on his left foot has been present for a while but the ulcer on his right foot has appeared only 2 weeks back. He follows up with podiatry as outpatient for his foot ulcers. He does have some pain although he has chronic numbness related to diabetic neuropathy. He denies any chest pain or palpitations. No nausea or vomiting. No abdominal pain. He was receiving Levaquin as outpatient. 01/11: Underwent incision and drainage of his left halux with bone biopsy. Patient is currently stating his pain is controlled. He is feeling well. No chest pain or shortness of breath no fevers or chills. No nausea, vomiting, diarrhea. - Constitutional Vitals: Temp Pulse Resp BP Pulse Ox 97.8 F 60 16 134/86 98 01/11/18 11:06 01/11/18 11:45 01/11/18 11:45 01/11/18 11:45 01/11/18 11:45 General appearance: Present: cooperative, mild distress, A&O X 3, morbidly obese , pleasant, answers questions appropriately - Head Head exam: Present: atraumatic, normocephalic - Eye Eye exam: Present: PERRL, conjuntiva pink, sclera anicteric Pupils: Present: PERRL - Neck Neck exam general surgery: Present: supple, trachea midline. Absent: lymphadenopathy - Respiratory Respiratory exam: Present: CTAB. Absent: accessory muscle use, rales, rhonchi, wheezes - Cardiovascular Cardiovascular exam: Present: RRR, +S1, +S2. Absent: diastolic murmur, gallop, rubs, systolic murmur - GI/Abdominal GI/Abdominal exam: Present: normal bowel sounds, soft, no peritoneal signs. Absent: distended, tenderness - Extremities Exam Extremities exam: Present: warm, radial pulses palpable and symmetrical. Absent : calf tenderness, cyanotic, pedal edema Additional comments: Both feet have dressings over them - Neurological Exam Neurological exam: Present: CN II-XII intact, oriented X3, no focal deficits. Absent: pronater drift, facial droop, speech deficit - Skin Skin exam: Present: dry, intact Internal Medicine: Result - Labs CBC & Chem 7: 01/11/18 05:55 01/11/18 05:55 Labs: Short CBC 01/11/18 Range/Units 05:55 WBC 7.2 (4.3-11.1) K/mcL Hgb 10.6 L (12.9-16.9) g/dL Hct 33.1 L (37.5-50.1) % Plt Count 236 (140-400) K/mcL Neutrophils # 5.2 (1.6-8.9) K/mcL BMP 01/10/18 01/11/18 07:45 05:55 Sodium 136 137 Potassium 3.9 3.8 Chloride 105 105 Carbon Dioxide 24 26 BUN 17 15 Creatinine 0.68 L 0.48 L Glucose 358 H 230 H Calcium 8.0 L 8.2 L Cardiac Enzymes 01/10/18 01/10/18 Range/Units 07:45 13:49 Troponin I < 0.03 < 0.03 (< 0.04) ng/mL - Impressions Impressions Echocardiogram 01/10/18 13:31 Impressions: LVEF 55-60%. Mildly dilated left ventricle. Mild concentric left ventricular hypertrophy. Right ventricle was not well visualized. No evidence of pulmonary hypertension. A device lead was visualized in the right atrium and right ventricle. No significant valvular dysfunction. Left Ventricular Wall Motion: Rest Echo Findings All wall segments showed normal motion. Findings: Study Quality * Technically sub-optimal due to body habitus. ECG Findings * Normal sinus rhythm. Left Ventricle * LVEF 55-60%. * Mildly dilated left ventricle. * Mild concentric left ventricular hypertrophy. Right Ventricle * Right ventricle was not well visualized. Left Atrium * Left atrium is not well visualized. Right Atrium * Right atrium is not well visualized. Aortic Valve * Aortic valve not well visualized. * No aortic regurgitation. * No aortic stenosis. Mitral Valve * Normal mitral valve structure and function. * No mitral regurgitation. * No mitral stenosis. Tricuspid Valve * Normal tricuspid valve structure and function. * Trace tricuspid regurgitation. * No evidence of pulmonary hypertension. Pulmonic Valve * Normal pulmonic valve structure and function. * No pulmonic regurgitation. Aorta * Normally sized aortic root. Pericardium * The pericardium appears normal. IVC * The IVC is not well evaluated. Device lead * A device lead was visualized in the right atrium and right ventricle. Pulmonary Artery * Pulmonary artery not well visualized. Foot CT 01/10/18 16:19 IMPRESSION: RIGHT FOOT: 1. Chronic osteomyelitis of the 1st toe with destructive changes of the 1st interphalangeal joint is noted on prior radiograph. Adjacent soft tissue edema consistent with cellulitis. No organized drainable fluid collection identified. Acute cannot be excluded. 2. Tenosynovitis of the flexor hallucis longus tendon. 3. Mild hindfoot and midfoot osteoarthritis. LEFT FOOT: 1. Soft tissue edema predominantly within the great toe. Correlate clinically for cellulitis. There is ulceration along the plantar aspect of the great toe. No well-defined drainable fluid collection identified within limits of the noncontrast exam. 2. No CT evidence for osteomyelitis. 3. Mild hindfoot and midfoot osteoarthritis. D/ / Gino Guo MD / Gino Guo MD Interpreting Provider: Gino Guo MD Foot CT 01/10/18 16:19 IMPRESSION: RIGHT FOOT: 1. Chronic osteomyelitis of the 1st toe with destructive changes of the 1st interphalangeal joint is noted on prior radiograph. Adjacent soft tissue edema consistent with cellulitis. No organized drainable fluid collection identified. Acute cannot be excluded. 2. Tenosynovitis of the flexor hallucis longus tendon. 3. Mild hindfoot and midfoot osteoarthritis. LEFT FOOT: 1. Soft tissue edema predominantly within the great toe. Correlate clinically for cellulitis. There is ulceration along the plantar aspect of the great toe. No well-defined drainable fluid collection identified within limits of the noncontrast exam. 2. No CT evidence for osteomyelitis. 3. Mild hindfoot and midfoot osteoarthritis. D/ / Gino Guo MD / Gino Guo MD Interpreting Provider: Gino Guo MD Consult Discharge Plan - Plan Referrals: Dominga Ewing CNP [Primary Care Provider] - 01/13/18 11:15 am
[2018-01-11] MEDS: *HR* OxyCODONE Immed Rel 5 MG TABLET PO PRN (17:29)
[2018-01-11] MEDS: Acetaminophen 325 MG TABLET PO PRN (21:07)
[2018-01-11] MEDS: Baclofen 10 MG TABLET PO SCH (21:18)
[2018-01-12] MEDS: Ampicillin/Sulbactam 3,000 MG in 0.9 % Sodium Chloride Mini Bag 100 ML IVPB SCH ×4 (05:36→23:56)
[2018-01-12 07:58] LABS: Estimated Average Glucose 286 mg/dl; Hemoglobin A1C 11.6 %
[2018-01-12] MEDS: Pyridostigmine Br 60 MG TABLET PO SCH ×3 (09:46→23:58)
[2018-01-12] MEDS: Isosorbide MONOnitrate (24 HR) 30 MG TAB.ER.24H PO SCH (09:46)
[2018-01-12] MEDS: Lactobacillus 1 EACH CAP.SPRINK PO SCH (09:47)
[2018-01-12] MEDS: Gabapentin 400 MG CAPSULE PO SCH ×4 (09:47→21:08)
[2018-01-12] MEDS: Aspirin Enteric Coated 81 MG Tablet PO SCH (09:47)
[2018-01-12] MEDS: Insulin DETEMIR 100 UNIT/ML X5UNITS SQ SCH ×2 (09:48→21:09)
[2018-01-12] MEDS: Insulin LISPRO 300 UNITS/3 ML VIAL SQ SCH ×7 (09:48→21:09)
[2018-01-12] MEDS: *HR* Heparin 5,000 UNIT/ML VIAL SQ SCH ×3 (09:49→23:56)
[2018-01-12] MEDS: Budesonide/Formoterol 160/4.5 MDI IH SCH ×2 (10:31→22:03)
[2018-01-12] MEDS: Ringers Solution, Lactated 1,000 ML IVC SCH (12:33)
[2018-01-12] MEDS: *HR* OxyCODONE Immed Rel 5 MG TABLET PO PRN ×2 (12:43→23:55)
--- NOTE | 2018-01-12 13:35 | Internal Med Progress Note ---
Date of Encounter: 01/12/18 Time of Encounter: 10:00 - Assessment and plan (1) Diabetic foot ulcer Current Visit: Yes Status: Acute Assessment and plan: Bilateral diabetic foot ulcers. Possible source of infection. We will consult podiatry for evaluation. 01/12: POD #1 bone biopsy of left Hallux Pain is controlled. Await culture data. Podiatry input is appreciated. Qualifiers: Diabetic foot ulcer location: toe Diabetes mellitus type: type 1 Laterality: unspecified laterality Non-pressure ulcer stage: limited to breakdown of skin Qualified Code(s): E10.621 - Type 1 diabetes mellitus with foot ulcer; L97.501 - Non-pressure chronic ulcer of other part of unspecified foot limited to breakdown of skin (2) Bacteremia Current Visit: Yes Status: Acute Assessment and plan: Recent strep group B bacteremia. Repeat cultures have been negative. We will follow cultures from [facility]. We will place on IV antibiotics for now. Monitor vital signs closely. 01/11: Patient was started on Unasyn on admission. Currently day #2 of IV Unasyn. As of yet unclear exactly what he received prior to coming here. We will need to repeat blood cultures to ensure clearance. We will also need to consult infectious diseases. 01/12: Day #3 IV Unasyn. Will consult ID in AM. If only concern is Beta Strep, consider change to Ancef. However given bone bx still pending, and DM wounds are often polymicrobial, will keep Unasyn for now. Repeat blood cx neg x [address] PICC once neg > 48 hours. (3) Sepsis Current Visit: Yes Status: Acute Assessment and plan: Patient presenting with sepsis. His vital signs at [facility] showed a blood pressure of 103.2, heart rate 113. His lactic acid was initially greater than 2 blood improved after he received IV fluids. Most likely related to diabetic foot ulcer and bacteremia. We will treat with IV antibiotics. Failed outpatient treatment. High risk for complications. 01/12: Sepsis resolved. Continue current management. Qualifiers: Sepsis type: Streptococcus group B Qualified Code(s): A40.1 - Sepsis due to streptococcus, group B (4) Diabetes Current Visit: Yes Status: Chronic Assessment and plan: Uncontrolled. Place patient on Levemir, sliding scale insulin. Monitor blood sugars closely. I expect blood sugars will be difficult to control due to acute illness and sepsis. 6/30: Continue basal bolus insulin and adjust accordingly. He was nothing by mouth for surgery, therefore we will continue to monitor prior to making additional adjustments. Check A1c. 01/12:BS remains in mid 200's. Patient is poor dietary compliance. Increase Levemir to 32 units subQ bid, monitor. Qualifiers: Diabetes mellitus type: type 1 Diabetes mellitus complication status: with neurologic complications Diabetes mellitus complication detail: with polyneuropathy Qualified Code(s): E10.42 - Type 1 diabetes mellitus with diabetic polyneuropathy (5) DVT prophylaxis Current Visit: Yes Status: Acute Assessment and plan: With subcutaneous heparin (6) HTN (hypertension) Current Visit: Yes Status: Acute Assessment and plan: On Cozaar and Imdur, and Coreg. Monitor. May need to uptitrate as BP elevated. Qualifiers: Hypertension type: essential hypertension Qualified Code(s): I10 - Essential (primary) hypertension (7) EDEL (obstructive sleep apnea) Current Visit: Yes Status: Acute Assessment and plan: Not on CPAP, did not tolerate - Time Spent With Patient Total time spent is greater than 50% in coordination of care (as documented) at patient's floor/unit and/or counseling patient: 25 - 35 minutes - Subjective Interval history: Mr. Noland is a 37 year old male to history of diabetes, hypertension, hyperlipidemia, status post PPM who presented to the ER at [facility] with complaints of fever and chills. He has been coming to the ER here for the past week with similar complaints. He was diagnosed with foot infection and was placed on antibiotics initially. He will return to the ER here as he continued to have fever. At that time the antibiotics were changed. Blood culture was positive for strep group B from 01/02. Repeat blood cultures since then have been negative. Patient reports that the ulcer on his left foot has been present for a while but the ulcer on his right foot has appeared only 2 weeks back. He follows up with podiatry as outpatient for his foot ulcers. He does have some pain although he has chronic numbness related to diabetic neuropathy. He denies any chest pain or palpitations. No nausea or vomiting. No abdominal pain. He was receiving Levaquin as outpatient. 01/12: Underwent incision and drainage of his left halux with bone biopsy yesterday. Patient is currently stating his pain is controlled. He is feeling well. No chest pain or shortness of breath no fevers or chills. No nausea, vomiting, diarrhea. Noted large amounts of food at bedside including pop, pizza, potato chips. - Constitutional Vitals: Temp Pulse Resp BP Pulse Ox 97.6 F 66 18 139/93 93 01/12/18 11:06 01/12/18 11:06 01/12/18 11:06 01/12/18 11:06 01/12/18 11:06 General appearance: Present: cooperative, mild distress, A&O X 3, morbidly obese , pleasant, answers questions appropriately - Head Head exam: Present: atraumatic, normocephalic - Eye Eye exam: Present: PERRL, conjuntiva pink, sclera anicteric Pupils: Present: PERRL - Neck Neck exam general surgery: Present: supple, trachea midline. Absent: lymphadenopathy - Respiratory Respiratory exam: Present: CTAB. Absent: accessory muscle use, rales, rhonchi, wheezes - Cardiovascular Cardiovascular exam: Present: RRR, +S1, +S2. Absent: diastolic murmur, gallop, rubs, systolic murmur - GI/Abdominal GI/Abdominal exam: Present: normal bowel sounds, soft, no peritoneal signs. Absent: distended, tenderness - Extremities Exam Extremities exam: Present: warm, radial pulses palpable and symmetrical. Absent : calf tenderness, cyanotic, pedal edema - Neurological Exam Neurological exam: Present: CN II-XII intact, oriented X3, no focal deficits. Absent: pronater drift, facial droop, speech deficit - Skin Skin exam: Present: dry, intact Additional comments: Dressing over feet wounds Internal Medicine: Result - Labs CBC & Chem 7: 01/11/18 05:55 01/11/18 05:55 Consult Discharge Plan - Plan Referrals: Dominga Ewing CNP [Primary Care Provider] - 01/13/18 11:15 am
--- NOTE | 2018-01-12 17:03 | Podiatry Progress Note ---
Date of Encounter: 01/12/18 Time of Encounter: 16:00 - Assessment and Plan (1) Type 2 diabetes mellitus with foot ulcer Current Visit: Yes Status: Acute see below Qualifiers: Diabetes mellitus fdc insulin use: with fdc use Qualified Code( s): E11.621 - Type 2 diabetes mellitus with foot ulcer; L97.509 - Non-pressure chronic ulcer of other part of unspecified foot with unspecified severity; Z79.4 - shelter (current) use of insulin (2) Chronic ulcer of left foot with fat layer exposed Current Visit: Yes Status: Acute left foot ulceration into subcutaneous tissue with purulent drainage/diabetic foot infection. per patient erythema to groin prior to IV abx. right hallux edematous without erythema but always looks like this and no change from previous, left foot big toe is where infection (erythema and streaking to groin ) began. patient doing well, no complaints. no purulence from the left foot plantar hallux wound today. f/u culture and biopsy results. c/w current wound care adaptic, 4x4 gauze, and racheal. weight bearing on heel in surgical shoe. f/u with Dr. Galeano in wound care upon discharge. Subjective Interval history: 37 year old diabetic male with pacemaker came to the ER at [facility] with complaints of fever and chills. He has been coming to the ER here for the past week with similar complaints. He was diagnosed with foot infection and was placed on antibiotics initially. He says he had redness going from his left big toe all the way to his groin area. Patient was also seen in podiatry clinic recently and alerted of positive blood cultures found by podiatry BUG TRIMMER, Michael and advised on need to start IV antibiotics. Blood culture was positive for strep group B from 01/02. Repeat blood cultures since then have been negative. Patient reports that the ulcer on his left foot has been present for a while, unknown length of time. He says his right foot big toe he has been dealing with for a while (months) and it has not been red and not swollen more than normal. He has been seeing Dr. Galeano for a wound on the right foot toe. He says all of the redness and issues have been from the left foot big toe. Patient states he has occasional pain however reports profound neuropathy, No nausea or vomiting. Objective - Vital Signs Vital Signs: Vital Signs Temp Pulse Resp BP Pulse Ox 01/12/18 15:40 98.1 F 63 18 156/94 98 01/12/18 11:06 97.6 F 66 18 139/93 93 01/12/18 06:47 98.2 F 61 18 154/98 96 01/12/18 04:00 98.1 F 60 18 148/95 97 01/11/18 23:35 98.1 F 70 16 149/95 97 01/11/18 20:43 16 99 01/11/18 19:55 98.1 F 73 18 132/85 97 Intake and Output 01/12/18 01/12/18 01/12/18 07:59 15:59 23:59 Intake Total 440 / 440 1710 / 1710 Output Total 400 / 400 950 / 950 Balance 40 / 40 760 / 760 Intake: IV Fluids 200 / 200 1000 / 1000 Lactated Ringers 1,000 ML @ 75 1000 / 1000 mls/hr IVC .[id number] [facility] Rx#: [id number] Unasyn 3,000 MG In 0.9 % Sodium 200 / 200 Chloride (Mini-Bag +) 100 ML @ 200 mls/hr IVPB Q6HR [facility]SHINE Rx#: [id number] Oral 240 / 240 710 / 710 Output: Urine 400 / 400 950 / 950 Other: Meal Lunch Percent of Meal Consumed 100% Stool Size Moderate Stool Consistency formed # Voids 1 Blood Glucose* 217 152 - Lab Result Diagrams: 01/11/18 05:55 01/11/18 05:55 Labs: Abnormal lab results RBC 4.14 M/mcL (4.19-5.50) L 01/11/18 05:55 Hgb 10.6 g/dL (12.9-16.9) L 01/11/18 05:55 Hct 33.1 % (37.5-50.1) L 01/11/18 05:55 MCV 80.0 fL (83.0-100.0) L 01/11/18 05:55 MCH 25.6 pg (28.0-33.3) L 01/11/18 05:55 Band Neutrophils % 6.0 % (0-4) H 01/10/18 07:45 Creatinine 0.48 mg/dL (0.70-1.30) L 01/11/18 05:55 BUN/Creatinine Ratio 31 (6-26) H 01/11/18 05:55 Glucose 230 mg/dL (70-105) H 01/11/18 05:55 POC Glucose 210 mg/dL (70-99) H 01/10/18 22:34 Hemoglobin A1c 11.6 % (-5.6) H 01/11/18 14:04 Calcium 8.2 mg/dL (8.6-10.3) L 01/11/18 05:55 Microbiology, Last 48 Hours 01/11/18 08:45 Wound Culture - Preliminary Right Great Toe Gram Positive Cocci 01/11/18 14:04 Blood Culture - Preliminary Peripheral Venipuncture Culture is incubating and being continuously monitored for growth. Final report to follow. 01/11/18 14:04 Blood Culture - Preliminary Peripheral Venipuncture Culture is incubating and being continuously monitored for growth. Final report to follow. Consult Discharge Plan - Plan Referrals: Dominga Ewing CNP [Primary Care Provider] - 01/13/18 11:15 am
[2018-01-12] MEDS: Baclofen 10 MG TABLET PO SCH (21:08)
[2018-01-13] MEDS: Ringers Solution, Lactated 1,000 ML IVC SCH (03:15)
[2018-01-13] MEDS: Ampicillin/Sulbactam 3,000 MG in 0.9 % Sodium Chloride Mini Bag 100 ML IVPB SCH ×2 (06:06→13:22)
[2018-01-13] MEDS: Budesonide/Formoterol 160/4.5 MDI IH SCH ×2 (07:53→22:19)
[2018-01-13] MEDS: Insulin LISPRO 300 UNITS/3 ML VIAL SQ SCH ×7 (08:45→20:38)
[2018-01-13] MEDS: *HR* Heparin 5,000 UNIT/ML VIAL SQ SCH ×2 (08:47→17:13)
[2018-01-13] MEDS: Insulin DETEMIR 100 UNIT/ML X5UNITS SQ SCH ×2 (08:47→20:37)
[2018-01-13] MEDS: Gabapentin 400 MG CAPSULE PO SCH ×4 (08:48→20:35)
[2018-01-13] MEDS: Aspirin Enteric Coated 81 MG Tablet PO SCH (08:48)
[2018-01-13] MEDS: Isosorbide MONOnitrate (24 HR) 30 MG TAB.ER.24H PO SCH (08:48)
[2018-01-13] MEDS: Pyridostigmine Br 60 MG TABLET PO SCH ×2 (08:49→17:12)
[2018-01-13] MEDS: Lactobacillus 1 EACH CAP.SPRINK PO SCH (08:49)
--- NOTE | 2018-01-13 11:12 | Internal Med Progress Note ---
Date of Encounter: 01/13/18 Time of Encounter: 10:00 - Assessment and plan (1) Diabetic foot ulcer Current Visit: Yes Status: Acute Assessment and plan: Bilateral diabetic foot ulcers. Possible source of infection. We will consult podiatry for evaluation. 01/12: POD #2 bone biopsy of left Hallux, associated Osteomyeletis Pain is controlled. Await culture data. Podiatry input is appreciated. Qualifiers: Diabetic foot ulcer location: toe Diabetes mellitus type: type 1 Laterality: unspecified laterality Non-pressure ulcer stage: limited to breakdown of skin Qualified Code(s): E10.621 - Type 1 diabetes mellitus with foot ulcer; L97.501 - Non-pressure chronic ulcer of other part of unspecified foot limited to breakdown of skin (2) Bacteremia Current Visit: Yes Status: Acute Assessment and plan: Recent strep group B bacteremia. Repeat cultures have been negative. We will follow cultures from [facility] [place]. We will place on IV antibiotics for now. Monitor vital signs closely. 01/11: Patient was started on Unasyn on admission. Currently day #2 of IV Unasyn. As of yet unclear exactly what he received prior to coming here. We will need to repeat blood cultures to ensure clearance. We will also need to consult infectious diseases. 01/13: Day #4 IV Unasyn. Will consult ID in AM. If only concern is Beta Strep, consider change to Ancef. However given bone bx still pending, and DM wounds are often polymicrobial, will keep Unasyn for now. Repeat blood cx neg x 48 hrs thus [address] PICC once neg > 48 hours. Infectious Diseases condulted. (3) Sepsis Current Visit: Yes Status: Acute Assessment and plan: Patient presenting with sepsis. His vital signs at [facility] showed a blood pressure of 103.2, heart rate 113. His lactic acid was initially greater than 2 blood improved after he received IV fluids. Most likely related to diabetic foot ulcer and bacteremia. We will treat with IV antibiotics. Failed outpatient treatment. High risk for complications. 01/12: Sepsis resolved. Continue current management. Qualifiers: Sepsis type: Streptococcus group B Qualified Code(s): A40.1 - Sepsis due to streptococcus, group B (4) Diabetes Current Visit: Yes Status: Chronic Assessment and plan: Uncontrolled. Place patient on Levemir, sliding scale insulin. Monitor blood sugars closely. I expect blood sugars will be difficult to control due to acute illness and sepsis. 01/11: Continue basal bolus insulin and adjust accordingly. He was nothing by mouth for surgery, therefore we will continue to monitor prior to making additional adjustments. Check A1c. 01/13:BS remains in mid 200's. Patient is poor dietary compliance. Increase Levemir to 35 units subQ bid, monitor. A1C 11.2 Qualifiers: Diabetes mellitus type: type 1 Diabetes mellitus complication status: with neurologic complications Diabetes mellitus complication detail: with polyneuropathy Qualified Code(s): E10.42 - Type 1 diabetes mellitus with diabetic polyneuropathy (5) DVT prophylaxis Current Visit: Yes Status: Acute Assessment and plan: With subcutaneous heparin (6) HTN (hypertension) Current Visit: Yes Status: Acute Assessment and plan: On Cozaar and Imdur, and Coreg. Monitor. May need to uptitrate as BP elevated. Qualifiers: Hypertension type: essential hypertension Qualified Code(s): I10 - Essential (primary) hypertension (7) EDEL (obstructive sleep apnea) Current Visit: Yes Status: Acute Assessment and plan: Not on CPAP, did not tolerate - Time Spent With Patient Total time spent is greater than 50% in coordination of care (as documented) at patient's floor/unit and/or counseling patient: - Subjective Interval history: Mr. Noland is a 37 year old male to history of diabetes, hypertension, hyperlipidemia, status post PPM who presented to the ER at [facility] with complaints of fever and chills. He has been coming to the ER here for the past week with similar complaints. He was diagnosed with foot infection and was placed on antibiotics initially. He will return to the ER here as he continued to have fever. At that time the antibiotics were changed. Blood culture was positive for strep group B from 01/02. Repeat blood cultures since then have been negative. Patient reports that the ulcer on his left foot has been present for a while but the ulcer on his right foot has appeared only 2 weeks back. He follows up with podiatry as outpatient for his foot ulcers. He does have some pain although he has chronic numbness related to diabetic neuropathy. He denies any chest pain or palpitations. No nausea or vomiting. No abdominal pain. He was receiving Levaquin as outpatient. 01/13: Underwent incision and drainage of his left halux with bone biopsy, now POD #2. Patient is currently stating his pain is controlled. He is feeling well. No chest pain or shortness of breath no fevers or chills. No nausea, vomiting, diarrhea. Noted large amounts of food at bedside including pop, pizza, potato chips. Pt unsure why he is on mestinon. Denies hx of Myasthenia Gravis. As he has been on this chronically, will continue. - Constitutional Vitals: Temp Pulse Resp BP Pulse Ox 97.8 F 60 14 169/105 97 01/13/18 07:23 01/13/18 07:23 01/13/18 07:53 01/13/18 07:23 01/13/18 07:53 General appearance: Present: cooperative, mild distress, A&O X 3, morbidly obese , pleasant, answers questions appropriately - Head Head exam: Present: atraumatic, normocephalic - Eye Eye exam: Present: PERRL, conjuntiva pink, sclera anicteric Pupils: Present: PERRL - Neck Neck exam general surgery: Present: supple, trachea midline. Absent: lymphadenopathy - Respiratory Respiratory exam: Present: CTAB. Absent: accessory muscle use, rales, rhonchi, wheezes - Cardiovascular Cardiovascular exam: Present: RRR, +S1, +S2. Absent: diastolic murmur, gallop, rubs, systolic murmur - GI/Abdominal GI/Abdominal exam: Present: normal bowel sounds, soft, no peritoneal signs. Absent: distended, tenderness - Extremities Exam Extremities exam: Present: warm, radial pulses palpable and symmetrical. Absent : calf tenderness, cyanotic, pedal edema Additional comments: Dressing on feet - Neurological Exam Neurological exam: Present: CN II-XII intact, oriented X3, no focal deficits. Absent: pronater drift, facial droop, speech deficit - Skin Skin exam: Present: dry, intact Internal Medicine: Result - Labs CBC & Chem 7: 01/11/18 05:55 01/11/18 05:55 Consult Discharge Plan - Plan Referrals: Dominga Ewing CNP [Primary Care Provider] - 01/13/18 11:15 am
--- NOTE | 2018-01-13 16:17 | Infectious Disease Consult ---
Date of Encounter: 01/13/18 Time of Encounter: 15:39 Assessment and Plan (1) Sepsis Status: Acute Assessment and plan: The patient had three SIRS criteria on admission. Likely secondary to left foot infection. Improved. WBC normalized. Afebrile. Tachycardia resolved. Blood cultures drawn 01/02/18 were positive 1/2 sets for GBS. Repeat blood cultures drawn 01/06/18 x 2 sets are negative and 01/11/18 x 2 sets are NGTD. Qualifiers: Sepsis type: Streptococcus group B Qualified Code(s): A40.1 - Sepsis due to streptococcus, group B (2) Bacteremia Status: Acute Assessment and plan: Causative organism: GBS. Blood cultures drawn 01/02/18 were positive 1/2 sets for GBS. Repeat blood cultures drawn 01/06/18 x 2 sets are negative and 01/11/18 x 2 sets are NGTD. Source likely left foot infection. Resolved. Repeat blood cultures are negative/no growth. Discontinue Unasyn. Start Levaquin 750mg IV daily. Duration of treatment depends on the clinical picture. Monitor renal function and dose-adjust antibiotics. (3) Diabetic foot infection Status: Acute Assessment and plan: Location: Left great toe. Causative organism unclear. Previous wound culture positive for GBS, MRSA, M. morgannii, and E. coli. Likely secondary to poor hygiene and uncontrolled blood sugars. CT of the left foot showed chronic osteomyelitis of the left great toe. Podiatry consulted and following. Status post I & D of the left great toe with bone biopsy. Operative note reviewed. Pus noted intra-op. Cultures positive for GPC, final ID and sensitivities are pending. Pathology pending. Check ESR and CRP. Wound care and activity per the podiatry team. Discontinue Unasyn. Start Levaquin 750mg IV daily. Start Vancomycin IV. Pharmacy to dose. Goal trough ~15. Duration of treatment depends on the clinical picture. Monitor renal function and for drug toxicity and dose-adjust antibiotics. (4) Left leg cellulitis Status: Acute Assessment and plan: Location: Left leg. Likely secondary to left great toe ulcer infection. Causative organism likely GBS. Improved. Continue antibiotics as above. (5) Type 2 diabetes mellitus with foot ulcer Status: Acute Assessment and plan: Wound noted to the bilateral feel. Ulcers to the right foot do not appear infected. Diabetes uncontrolled. HgbA1C 11.2. Recommend aggressive glucose monitoring and control to promote wound healing and prevent re-infection. Management per the primary team. Qualifiers: Diabetes mellitus emt intermediate insulin use: with emt intermediate use Qualified Code( s): E11.621 - Type 2 diabetes mellitus with foot ulcer; L97.509 - Non-pressure chronic ulcer of other part of unspecified foot with unspecified severity; Z79.4 - senior living (current) use of insulin (6) HTN (hypertension) Status: Acute Qualifiers: Hypertension type: essential hypertension Qualified Code(s): I10 - Essential (primary) hypertension (7) EDEL (obstructive sleep apnea) Status: Acute Infectious Disease HPI - Data of Consult Patient: known to practice within the last 3 years Consult date: 01/13/18 Requesting Physician: Royal Lucas MD Primary Care Provider: Dominga Ewing CNP - Consult Narrative Reason for consult: Bacteremia, Left great toe infection History of present illness: Mr. Noland is a 37 year old male with a past medical history of CHF, cardiomyopathy status post pacemaker placement, diabetes, hyperlipidemia, hypertension, anxiety, depression, and remote history of right great toe osteomyelitis. The patient was amenable to the hospital January 10 for left foot infection. We are consulted January 13 for further recommendations for left foot infection. Briefly, the patient's a 37-year-old male with past medical history as stated above. The patient is well-known to the infectious disease services were consulted on this case during a previous episode of osteo-myelitis of the right foot. Since we saw the patient last, the patient has had chronic nonhealing ulcers to the bilateral great toes for which she has been following in the [facility] wound clinic. On January 02, the patient presented to the emergency department with complaints of left foot redness, swelling, and fever. He received a dose of IV vancomycin and a prescription for oral clindamycin and was discharged home. He had a wound culture that grew out MRSA, Morganella, Escherichia coli, and group B strep. He also had blood cultures that were +1 out of 2 sets for group B strep. At that time, he had a chest x-ray and tib-fib x-rays that were negative. He was noted to have a fever of 105.4 in the ER. Once his cultures came back positive, he was contacted and advised to come back to the emergency department. Upon arrival, the patient was afebrile and hemodynamically stable. Repeat blood cultures were obtained and were negative 2 sets. He was discharged home to complete a course of oral Levaquin. The patient continued to have persistent fevers and chills and left foot redness and swelling so he went to an outside hospital where he was noted to have a fever of 103 with tachycardia and leukocytosis and lactic acidosis. He was transferred here for further evaluation by podiatry. Since transfer here, he had a CT of the bilateral feet showed chronic osteomyelitis of the left first toe and possible cellulitis of the right great toe. Podiatry recommended surgical intervention and he was taken to the operating room on January 11 and had an I&D of the left hallux and bone biopsy. Pus was noted intraoperatively. Cultures positive for gram-positive cocci. Pathology is pending. Repeat blood cultures obtained January 11 are no growth to date 2 sets. On his last set of labs, his white blood cell count has normalized. Renal function is stable. Currently, he is on IV Unasyn. We have asked to evaluate and make further recommendations. During my exam today, the patient endorses a history as stated above. He reported fevers and chills, but no rigors. He reports chronic headaches secondary to migraines, but no neck pain or weakness or dizziness. He denied any chest pain, shortness of breath, or cough. He reported some nausea, but no vomiting. He does report some intermittent diarrhea that he attributes to his chronic medications. He denied any pain at the site of the infection, but did report redness and swelling that went all the way up to his left groin. He reported a small amount of drainage from the ulceration to the plantar aspect of the left great toe. He states that that ulceration had been there for several weeks and he is unsure what caused it. He denies any oral thrush or other skin lesions. The patient lives at home with his and children. He does not work outside the home. He states he has been swimming in his swimming pool recently, but denies any exposure to other water. He denies any alcohol, tobacco, or illicit drug use. He states his blood sugars have been relatively well controlled. CC: Royal Lucas MD Past Med Surg Social Fam HX - Past Medical History Attestation: Yes The following information was validated with the patient. Source: patient, old records reviewed, nursing notes reviewed Medical history: CHF, diabetes, hyperlipidemia, hypertension Additional medical history: CARDIOMEGALY, EDEL Psychiatric history: anxiety, depression - Past Surgical History Surgical History: pacemaker Additional surgical history: bladder sx,heart cath x6, right foot I & D - Social History Smoking Status: Never smoker Smokeless Tobacco Status: No Alcohol use: none Drug use: none Occupational status: unemployed Current living situation: Home, With Family Activity Level: Independent ambulation Recent Out of Country Travel Within the Last 8 Weeks: No Exposure or Possible Exposure to Illness During Travel: No - Family History Father Hx Family Cardiac Disorders: Yes (Heart disease) Mother Hx Family Cardiac Disorders: Yes (heart disease) Hx Family Cancer: Yes (Bladder cancer) Hx Family Endocrine Disorder: Yes (DM) Infectious Disease-CN:Meds Amitriptyline [Elavil] 25 mg PO HS 01/17/17 [History] Aspirin [Lo-Dose Aspirin EC] 81 mg PO DAILY 01/17/17 [History] Carvedilol [Coreg] 6.25 mg PO BIDWM 01/17/17 [History] Codeine/Butalbital/ASA/Caffein [Fiorinal with Codeine #3 Cap] 1 each PO Q8H PRN 01/17/17 [History] Gabapentin [Neurontin] 800 mg PO QID 01/17/17 [History] Ibuprofen [Motrin] 800 mg PO Q6-8H PRN 01/17/17 [History] Isosorbide MONOnitrate (24 HR) [Imdur] 30 mg PO DAILY 01/17/17 [History] Losartan Potassium [Cozaar] 50 mg PO DAILY 01/17/17 [History] Pyridostigmine Br [Mestinon] 60 mg PO Q8H 01/17/17 [History] Ropinirole HCl [Requip] 0.5 mg PO HS 01/17/17 [History] cloNIDine HCl [CloNIDine HCl] 0.1 mg PO BID PRN 01/17/17 [History] Budesonide/Formoterol 160/4.5 [Symbicort 160/4.5] 2 puff IH BIDR 04/11/17 [ History] Metformin HCl [Metformin HCl ER] 1,000 mg PO BID 04/11/17 [History] Sertraline [Zoloft] 25 mg PO DAILY 04/11/17 [History] Albuterol Sulfate [Proair Hfa] 2 puff IH Q4H PRN 07/11/17 [History] Atorvastatin [Lipitor] 40 mg PO HS 07/11/17 [History] Baclofen [Baclofen] 20 mg PO DAILY 07/11/17 [History] Carbidopa/Levodopa [Carbidopa-Levo 10-100 mg Odt] 1 tab PO DAILY 07/11/17 [ History] Ketoconazole 2% CRM [Nizoral Cream] 1 appl TP BID 07/11/17 [History] Lactobacillus Acidophilus [Acidophilus Probiotic] 1 mg PO DAILY 07/11/17 [ History] Liraglutide [Victoza 2-Raul] 1.2 mg IJ DAILY 07/11/17 [History] Meloxicam [Mobic] 7.5 mg PO BID PRN 07/11/17 [History] Nitroglycerin [Nitrostat] 0.4 mg SL Q5M PRN 07/11/17 [History] Nystatin [Nystatin] 1 appl TP TID PRN 07/11/17 [History] Clindamycin HCl 300 mg PO QID #28 capsule 01/02/18 [Rx] Insulin Regular, Human [Humulin R U-500 Kwikpen] 70 unit SQ QAM 01/06/18 [ History] Insulin Regular, Human [Humulin R U-500 Kwikpen] 90 unit SQ QPM 01/06/18 [ History] levoFLOXacin [Levaquin] 500 mg PO DAILY #10 tablet 01/06/18 [Rx] 3 Allergy/AdvReac Type Severity Reaction Status Date / Time No Known Allergies Allergy Verified 01/06/18 19:53 All systems: reviewed and no additional remarkable complaints except as stated Exam - Constitutional Vitals: Temp Pulse Resp BP Pulse Ox 98.0 F 60 18 157/99 97 01/13/18 11:27 01/13/18 07:23 01/13/18 11:27 01/13/18 11:27 01/13/18 07:53 General appearance: cooperative, no acute distress, obese - Head Head exam: Present: atraumatic, normal inspection, normocephalic - Eye Eye exam: Present: EOMI, normal appearance, PERRL Pupils: Present: normal accommodation Additional comments: No endocarditis stigmata noted. - ENT ENT exam: Present: mucous membranes moist - Neck Neck exam: Present: normal inspection - Respiratory Respiratory exam: Present: CTAB. Absent: rales, respiratory distress, rhonchi, wheezes - Cardiovascular Cardiovascular exam: Present: RRR, +S1, +S2 - GI/Abdominal GI/Abdominal exam: Present: normal bowel sounds, soft. Absent: distended, tenderness - Extremities Exam Extremities exam: Absent: joint swelling, pedal edema, tenderness Additional comments: Left great toe ulcer noted to the plantar aspect without drainage, erythema, or warmth. Bone biopsy site noted to the dorsal aspect of the left great toe. Right foot dressing C/D/I. - Neurological Exam Neurological exam: Present: alert, oriented X3, no focal deficits - Psychiatric Psychiatric exam: Present: normal affect, normal mood - Skin Skin exam: Present: dry, intact, normal color, warm Infectious Disease CN: Results - Labs CBC & Chem 7: 01/11/18 05:55 01/11/18 05:55 Cultures: Cultures 01/11/18 08:45 Wound Culture - Preliminary Right Great Toe Gram Positive Cocci 01/11/18 14:04 Blood Culture - Preliminary Peripheral Venipuncture Culture is incubating and being continuously monitored for growth. Final report to follow. 01/11/18 14:04 Blood Culture - Preliminary Peripheral Venipuncture Culture is incubating and being continuously monitored for growth. Final report to follow. Consult Discharge Plan - Plan Referrals: Dominga Ewing CNP [Primary Care Provider] - 01/13/18 11:15 am - Attending Attestation I examined this patient and my medical decision-making was reviewed with the Resident Physician. I agree with the documented findings, disposition and treatment plan as described except to the extent set forth below. This is an addendum to original report dictated by Nakia Petty CNP. Please refer to Flavio shukla for full detail. Patient is a 37-year-old gentleman with past medical history mentioned below including cardiomyopathy with CHF status post pacemaker placement, diabetes mellitus, hyperlipidemia, hypertension, depression with history of right great toe osteomyelitis. Patient was treated by our service previously with a wound culture that was positive for MRSA, Morganella, Escherichia coli. Patient was having sepsis like picture and left great toe osteomyelitis. Patient was also bacteremic with group B streptococcus. Rest evaluated the patient and make further recommendations. Assessment and plan: Sepsis Bacteremia Diabetic foot infection Left leg cellulitis Recommendations at this point patient is on previous cultures in was one of the patient I recommended seeing Unasyn started patient on levofloxacin and vancomycin for broader coverage. Await Intra-Op cultures to finalize await repeat cultures. Goal vancomycin trough around 15. Continue treatment for good 6 weeks. We might tailor antibiotics according to cultures on the finalize. Monitor labs and for drug toxicity.
--- NOTE | 2018-01-13 16:18 | Podiatry Progress Note ---
Date of Encounter: 01/13/18 Time of Encounter: 12:45 - Assessment and Plan (1) Diabetes Current Visit: Yes Status: Chronic Qualifiers: Diabetes mellitus type: type 1 Diabetes mellitus complication status: with neurologic complications Diabetes mellitus complication detail: with polyneuropathy Qualified Code(s): E10.42 - Type 1 diabetes mellitus with diabetic polyneuropathy (2) Diabetic foot ulcer Current Visit: Yes Status: Acute S/p incision and drainage left hallux and bone biopsy left hallux by Dr. Hatfield on 01/11/18. Ulcerations to both great toes, no regression noted, no cellulitis. Plan: F/u culture and biopsy results. Continue current wound care adaptic, 4x4 gauze, and kerlix. Weight bearing on heel in surgical shoe. F/u with Dr. Galeano in wound care upon discharge. Qualifiers: Diabetic foot ulcer location: toe Diabetes mellitus type: type 1 Laterality: unspecified laterality Non-pressure ulcer stage: limited to breakdown of skin Qualified Code(s): E10.621 - Type 1 diabetes mellitus with foot ulcer; L97.501 - Non-pressure chronic ulcer of other part of unspecified foot limited to breakdown of skin Subjective Interval history: Patient is s/p incision and drainage left hallux and bone biopsy left hallux by Dr. Hatfield on 01/11/18. Patient is sitting up in bed eating lunch and states he overall feels better. No c/o fever, chills or flu like symptoms. Dressings are dry and intact to both feet. Objective - Vital Signs Vital Signs: Vital Signs Temp Pulse Resp BP Pulse Ox 01/13/18 15:39 98.1 F 71 16 139/92 96 01/13/18 11:27 98.0 F 18 157/99 01/13/18 07:53 14 97 01/13/18 07:23 97.8 F 60 16 169/105 98 01/13/18 04:34 98.6 F 91 17 154/96 93 01/12/18 22:04 14 97 01/12/18 19:41 98.6 F 63 17 131/77 96 Intake and Output 01/13/18 01/13/18 01/13/18 07:59 15:59 23:59 Intake Total 1200 / 1200 480 / 480 Output Total 2049 / 2049 1700 / 170 Balance -850 / -850 -1220 / -1220 Intake: IV Fluids 1200 / 1200 Lactated Ringers 1,000 ML @ 75 1000 / 1000 mls/hr IVC .[id number] [facility] Rx#: [id number] Unasyn 3,000 MG In 0.9 % Sodium 200 / 200 Chloride (Mini-Bag +) 100 ML @ 200 mls/hr IVPB Q6HR [facility] Rx#: [id number] Oral 480 / 480 Output: Urine 2050 / 2050 1700 / 1700 Other: Meal Lunch Percent of Meal Consumed 100% Weight 170 kg Blood Glucose* 212 231 109 Patient Weight 01/13/18 23:59 Weight 170 kg - Exam Exam: General appearance: alert, awake, oriented X 3, calm and pleasant, no acute distress. . Vascular: Pedal pulses + 2/4 DP/PT. No evidence of cyanosis, pallor or rubor. Edema graded at 1+ /4. Skin Temperature warm to warm from toes to tibia. Homans Sign is neg. Capillary refill time is immediate to digits. . Musculoskeletal: No ecchymosis, no lumps, no deformities, no warmth,, no erythema. Mild edema. . Wound: Wound Exam: Full thickness ulceration to the distal aspect of the left great toe measuring approximately 1 cm in length x 1 cm in width x 0.5 cm in depth. Base of wound beefy red, no pus, no periwound erythema, no streaking from ulceration. Full thickness ulceration to the plantar aspect of the left great toe at the IPJ measuring 0.5 cm in length x 0.7 cm in width x 0.5 cm in depth with 90% fibrous tissue and 10% granulation tissue, no pus, no odor, no tunneling, no sinus tracts,No streaking. Superficial ulcer to the plantar aspect of the right great toe measuring 0.5 cm in diamter, base of wound is pink, no pus, no odor, no streaking, right great toe is edematous, per patient this toe looks better. - Lab Result Diagrams: 01/11/18 05:55 01/11/18 05:55 Labs: Abnormal lab results RBC 4.14 M/mcL (4.19-5.50) L 01/11/18 05:55 Hgb 10.6 g/dL (12.9-16.9) L 01/11/18 05:55 Hct 33.1 % (37.5-50.1) L 01/11/18 05:55 MCV 80.0 fL (83.0-100.0) L 01/11/18 05:55 MCH 25.6 pg (28.0-33.3) L 01/11/18 05:55 Band Neutrophils % 6.0 % (0-4) H 01/10/18 07:45 Creatinine 0.48 mg/dL (0.70-1.30) L 01/11/18 05:55 BUN/Creatinine Ratio 31 (6-26) H 01/11/18 05:55 Glucose 230 mg/dL (70-105) H 01/11/18 05:55 POC Glucose 212 mg/dL (70-99) H 01/13/18 07:27 Hemoglobin A1c 11.6 % (-5.6) H 01/11/18 14:04 Calcium 8.2 mg/dL (8.6-10.3) L 01/11/18 05:55 Microbiology, Last 48 Hours 01/11/18 08:45 Wound Culture - Preliminary Right Great Toe Gram Positive Cocci 01/11/18 14:04 Blood Culture - Preliminary Peripheral Venipuncture Culture is incubating and being continuously monitored for growth. Final report to follow. 01/11/18 14:04 Blood Culture - Preliminary Peripheral Venipuncture Culture is incubating and being continuously monitored for growth. Final report to follow. Consult Discharge Plan - Plan Referrals: Dominga Ewing, ZEFERINO [Primary Care Provider] - 01/13/18 11:15 am
[2018-01-13] MEDS: *HR* OxyCODONE Immed Rel 5 MG TABLET PO PRN (17:22)
[2018-01-13] MEDS: Baclofen 10 MG TABLET PO SCH (20:35)
[2018-01-13] MEDS: Acetaminophen 325 MG TABLET PO PRN (20:36)
[2018-01-13] MEDS: Levofloxacin 750 MG/150 ML 750 MG/150 ML BAG IVPB SCH (20:40)
[2018-01-14] MEDS: *HR* Heparin 5,000 UNIT/ML VIAL SQ SCH ×3 (00:18→16:30)
[2018-01-14] MEDS: cloNIDine HCl 0.1 MG TABLET PO PRN ×2 (00:19→12:28)
[2018-01-14] MEDS: Pyridostigmine Br 60 MG TABLET PO SCH ×3 (00:19→16:31)
[2018-01-14 04:51] LABS: C-Reactive Protein 23 mg/L (Less than 10)
[2018-01-14 07:12] LABS: Basophils % 0.7 %; Eosinophils # 0.1 K/mcL (0.0-0.6); Eosinophils % 1.6 %; Hematocrit 35.2 % (37.5-50.1); Hemoglobin 11.3 g/dL (12.9-16.9); Immature Granulocytes % 3.1 % (0-4); Lymphocytes # 1.4 K/mcL (0.6-4.6); Lymphocytes % 23.6 %; Mean Corpuscular HGB Conc 32.1 g/dL (31.6-35.5); Mean Corpuscular Volume 80.9 fL (83.0-100.0); Mean Platelet Volume 9.8 fL (9.4-12.4); Monocytes # 0.4 K/mcL (0.0-1.3); Monocytes % 7.3 %; Neutrophils # 3.7 K/mcL (1.6-8.9); Platelet Count 283 K/mcL (140-400); Red Blood Count 4.35 M/mcL (4.19-5.50); Red Cell Distribution Width 13.9 % (11.5-14.5); Segmented Neutrophils % 63.7 %
[2018-01-14 07:20] LABS: Alanine Aminotransferase 47 Units/L (7-52); Albumin 3.3 g/dL (3.5-5.7); Albumin/Globulin Ratio 1.1 (1.1-2.2); Alkaline Phosphatase 69 Units/L (34-104); Aspartate Amino Transferase 25 Units/L (13-39); BUN/Creatinine Ratio 16 (6-26); Bilirubin,Total 0.2 mg/dL (0.3-1.0); Blood Urea Nitrogen 10 mg/dL (6-20); Calcium 8.6 mg/dL (8.6-10.3); Carbon Dioxide 24 mEq/L (23-29); Chloride 104 mEq/L (98-107); Glucose 269 mg/dL (70-105); Osmolality,Calculated 297 (280-300); Potassium 3.7 mEq/L (3.5-5.1); Sodium 139 mEq/L (136-145); Total Protein 6.3 g/dL (6.4-8.9); eGFR For African Americans > 60 (> 60); eGFR For Non-African Americans > 60 (> 60)
--- NOTE | 2018-01-14 08:25 | Internal Med Progress Note ---
<Cecy Monzon N - Last Filed: 01/14/18 19:47> Date of Encounter: 01/14/18 Time of Encounter: 08:25 - Assessment and plan (1) Diabetic foot ulcer Status: Inactive Assessment and plan: Current therapy recommended by ID includes levaquin and vancomycin IV. Consult placed to PICC team today as patient will require long-term antibiotics. Patient will likely discharged tomorrow. Patient left AMA. Please see discharge summary for full discussion. Qualifiers: Diabetic foot ulcer location: toe Diabetes mellitus type: type 1 Laterality: unspecified laterality Non-pressure ulcer stage: limited to breakdown of skin Qualified Code(s): E10.621 - Type 1 diabetes mellitus with foot ulcer; L97.501 - Non-pressure chronic ulcer of other part of unspecified foot limited to breakdown of skin (2) Diabetes Status: Chronic Assessment and plan: Continue close monitoring of blood glucose and current medication regimen. Encouraged close adherence to therapy following discharge to encourage speedy wound healing and decrease risk of reinfection. Qualifiers: Diabetes mellitus type: type 1 Diabetes mellitus complication status: with neurologic complications Diabetes mellitus complication detail: with polyneuropathy Qualified Code(s): E10.42 - Type 1 diabetes mellitus with diabetic polyneuropathy (3) Bacteremia Status: Resolved Assessment and plan: Resolving. Suspect secondary to foot infection and osteomyelitis. Will continue current therapy as recommended by infectious disease. (4) Sepsis Status: Resolved Assessment and plan: Patient is currently afebrile. WBC count is within normal limits. Qualifiers: Sepsis type: Streptococcus group B Qualified Code(s): A40.1 - Sepsis due to streptococcus, group B (5) HTN (hypertension) Status: Chronic Assessment and plan: Current regimen includes Cozaar, Imdur, and Coreg. Recommend outpatient followup regarding blood pressure with medication adjustments if elevated blood pressure persists. Qualifiers: Hypertension type: essential hypertension Qualified Code(s): I10 - Essential (primary) hypertension (6) DVT prophylaxis Status: Acute Assessment and plan: Currently receiving subcutaneous heparin. (7) EDEL (obstructive sleep apnea) Status: Chronic Assessment and plan: Patient reportedly did not tolerate use of CPAP. - Time Spent With Patient Total time spent is greater than 50% in coordination of care (as documented) at patient's floor/unit and/or counseling patient: - Subjective Interval history: Mr. Noland is a 37-year old male who was admitted with a diabetic foot infection and osteomyelitis of the left great toe. He reports no events overnight, and denies any pain or discomfort from the affected side. He denies any fevers, chills, nausea, or vomiting. He does report occasional mild headaches, which are alleviated with PRN analgesics. He denies any new complaints or concerns today. - Constitutional Vitals: Temp Pulse Resp BP Pulse Ox 97.5 F L 69 16 155/106 92 01/14/18 07:30 01/14/18 07:30 01/14/18 07:30 01/14/18 07:30 01/14/18 07:30 Exam: Patient is alert and responds to questions appropriately. He appears to be resting in bed comfortably, and does not appear to be in acute distress. - Head Additional comments: Atraumatic and normocephalic. - Eye Eye exam: Present: normal appearance - Neck Additional comments: No apparent abnormalities. Neck is soft and supple with no JVD or tracheal deviation. No lymphadenopathy. - Respiratory Additional comments: Lungs clear to auscultation bilaterally. No accessory muscle use appreciated. - Cardiovascular Additional comments: Regular rate and rhythm. No murmurs, rubs, or gallops. - Extremities Exam Additional comments: Patient moves all extremities spontaneously. - Neurological Exam Additional comments: No apparent focal deficits. Internal Medicine: Result - Labs CBC & Chem 7: 01/14/18 04:07 01/14/18 04:07 Labs: Short CBC 01/14/18 Range/Units 04:07 WBC 5.8 (4.3-11.1) K/mcL Hgb 11.3 L (12.9-16.9) g/dL Hct 35.2 L (37.5-50.1) % Plt Count 283 (140-400) K/mcL Neutrophils # 3.7 (1.6-8.9) K/mcL BMP 01/14/18 04:07 Sodium 139 Potassium 3.7 Chloride 104 Carbon Dioxide 24 BUN 10 Creatinine 0.61 L Glucose 269 H Calcium 8.6 Liver Function 01/14/18 Range/Units 04:07 Total Bilirubin 0.2 L (0.3-1.0) mg/dL AST 25 (13-39) Units/L ALT 47 (7-52) Units/L Alkaline Phosphatase 69 (34-104) Units/L Albumin 3.3 L (3.5-5.7) g/dL Consult Discharge Plan - Plan Instructions: Vancomycin (Injection), Levofloxacin (By mouth), Heart Failure ( DC), Cellulitis (DC), Diabetic Foot Care (DC), Sepsis (DC), Chronic Hypertension (DC) Additional Instructions: Take antibiotics as prescribed and follow up with PCP in 3-5 days. Keep follow up appointment with surgeon as scheduled. Follow up with ID on 01/30/18 at 0900. Return to emergency department if symptoms worsen or if new concerns arise. Referrals: Nakia Petty CNP [Advanced Practice Nurse] - 01/30/18 9:00 am Dominga Ewing CNP [Primary Care Provider] - 01/13/18 11:15 am Prescriptions: Levofloxacin [Levaquin] 750 mg PO DAILY #30 tablet Vancomycin [Vancocin (wt based)] 1,500 mg IV DAILY 30 Days vial <Yanick Riley - Last Filed: 01/15/18 15:48> Date of Encounter: 01/14/18 - Assessment and plan (1) Diabetes Status: Chronic Qualifiers: Diabetes mellitus type: type 1 Diabetes mellitus complication status: with neurologic complications Diabetes mellitus complication detail: with polyneuropathy Qualified Code(s): E10.42 - Type 1 diabetes mellitus with diabetic polyneuropathy (2) Bacteremia Status: Resolved (3) Diabetic foot ulcer Status: Inactive Qualifiers: Diabetic foot ulcer location: toe Diabetes mellitus type: type 1 Laterality: unspecified laterality Non-pressure ulcer stage: limited to breakdown of skin Qualified Code(s): E10.621 - Type 1 diabetes mellitus with foot ulcer; L97.501 - Non-pressure chronic ulcer of other part of unspecified foot limited to breakdown of skin (4) Sepsis Status: Resolved Qualifiers: Sepsis type: Streptococcus group B Qualified Code(s): A40.1 - Sepsis due to streptococcus, group B (5) HTN (hypertension) Status: Chronic Qualifiers: Hypertension type: essential hypertension Qualified Code(s): I10 - Essential (primary) hypertension (6) DEEL (obstructive sleep apnea) Status: Chronic - Time Spent With Patient Total time spent is greater than 50% in coordination of care (as documented) at patient's floor/unit and/or counseling patient: - Constitutional Vitals: Temp Pulse Resp BP Pulse Ox 97.9 F 66 16 160/103 98 01/14/18 15:34 01/14/18 15:34 01/14/18 15:34 01/14/18 15:34 01/14/18 15:34 Internal Medicine: Result - Labs CBC & Chem 7: 01/14/18 04:07 01/14/18 04:07 - Attending Attestation I examined this patient and my medical decision-making was reviewed with the Resident Physician on 01/14/18. I agree with the documented findings, disposition and treatment plan as described except to the extent set forth below. Please see discharge summary of this date.
[2018-01-14] MEDS: Insulin LISPRO 300 UNITS/3 ML VIAL SQ SCH ×6 (09:20→16:33)
[2018-01-14] MEDS: Aspirin Enteric Coated 81 MG Tablet PO SCH (09:21)
[2018-01-14] MEDS: Insulin DETEMIR 100 UNIT/ML X5UNITS SQ SCH (09:21)
[2018-01-14] MEDS: Levofloxacin 750 MG/150 ML 750 MG/150 ML BAG IVPB SCH (09:22)
[2018-01-14] MEDS: Isosorbide MONOnitrate (24 HR) 30 MG TAB.ER.24H PO SCH (09:22)
[2018-01-14] MEDS: Lactobacillus 1 EACH CAP.SPRINK PO SCH (09:22)
[2018-01-14] MEDS: Gabapentin 400 MG CAPSULE PO SCH ×3 (09:22→16:31)
[2018-01-14] MEDS: Budesonide/Formoterol 160/4.5 MDI IH SCH (10:51)
--- NOTE | 2018-01-14 12:07 | Infectious Disease Progress No ---
Date of Encounter: 01/14/18 Time of Encounter: 12:05 - Assessment and Plan (1) Sepsis Current Visit: Yes Status: Resolved The patient had three SIRS criteria on admission. Likely secondary to left foot infection. Improved. WBC normalized. Afebrile. Tachycardia resolved. Blood cultures drawn 01/02/18 were positive 1/2 sets for GBS. Repeat blood cultures drawn 01/06/18 x 2 sets are negative and 01/11/18 x 2 sets are NGTD. Qualifiers: Sepsis type: Streptococcus group B Qualified Code(s): A40.1 - Sepsis due to streptococcus, group B (2) Bacteremia Current Visit: Yes Status: Resolved Causative organism: GBS. Blood cultures drawn 01/02/18 were positive 1/2 sets for GBS. Repeat blood cultures drawn 01/06/18 x 2 sets are negative and 01/11/18 x 2 sets are NGTD. Source likely left foot infection. Resolved. Repeat blood cultures are negative/no growth. Continue Levaquin 750mg IV daily. Duration of treatment depends on the clinical picture. Monitor renal function and dose-adjust antibiotics. (3) Diabetic foot infection Current Visit: Yes Status: Acute Location: Left great toe. Causative organism Enterococcus faecalis per intra-op cultures. Previous wound culture positive for GBS, MRSA, M. morgannii, and E. coli. Likely secondary to poor hygiene and uncontrolled blood sugars. Failed outpatient oral antibiotic therapy. CT of the left foot showed chronic osteomyelitis of the left great toe. Podiatry consulted and following. Status post I & D of the left great toe with bone biopsy. Operative note reviewed. Pus noted intra-op. Cultures positive for Enterococcus faecalis. Pathology negative for OM. ESR 39 and CRP 23. Wound care and activity per the podiatry team. Continue Levaquin 750mg IV daily. Continue Vancomycin IV. Pharmacy to dose. Goal trough ~15. Duration of treatment depends on the clinical picture. We will plan to treat for 2-6 weeks, based on the clinical picture and labs given the extent of the infection and the patient is at high risk for impaired healing and re-infection due to his uncontrolled diabetes. Can switch to PO Levaquin on discharge since it has high oral bioavailability. Monitor renal function and for drug toxicity and dose-adjust antibiotics. Consult VAT for PICC line placement. Will need weekly CBC, BUN/Cr, ESR, CRP, and Vanc trough. Will need weekly PICC care per protocol. Follow up with ID 01/30/18 at 0900. (4) Left leg cellulitis Current Visit: Yes Status: Acute Location: Left leg. Likely secondary to left great toe ulcer infection. Causative organism likely polymicrobial. Improved. Continue antibiotics as above. (5) Type 2 diabetes mellitus with foot ulcer Current Visit: Yes Status: Acute Wound noted to the bilateral feel. Ulcers to the right foot do not appear infected. Diabetes uncontrolled. HgbA1C 11.2. Recommend aggressive glucose monitoring and control to promote wound healing and prevent re-infection. Management per the primary team. 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 No acute events noted overnight. Patient resting quietly in bed. Denies fevers, chills, or rigors. Denies chest pain, shortness of breath, or cough. Denies nausea, vomiting, or diarrhea. Denies abdominal pain , urinary complaints, or appetite changes. Denies oral thrush or skin lesions. Denies pain at the surgical site. Infect Dis PN-Objective Data - Labs CBC & Chem 7: 01/14/18 04:07 01/14/18 04:07 Labs: Laboratory Results - last 24 hr 01/12/18 01/13/18 01/13/18 20:26 11:29 16:06 WBC RBC Hgb Hct MCV MCH MCHC RDW Plt Count MPV Immature Gran % Seg Neutrophils % Lymphocytes % Monocytes % Eosinophils % Basophils % Neutrophils # Lymphocytes # Monocytes # Eosinophils # Basophils # ESR Sodium Potassium Chloride Carbon Dioxide BUN Creatinine Est GFR ( Amer) Est GFR (Non-Af Amer) BUN/Creatinine Ratio Glucose POC Glucose 154 H 231 H 109 H Calculated Osmolality Calcium Total Bilirubin AST ALT Alkaline Phosphatase C-Reactive Protein Serum Total Protein Albumin Globulin Albumin/Globulin Ratio 01/13/18 01/14/18 01/14/18 19:41 04:07 04:07 WBC RBC Hgb Hct MCV MCH MCHC RDW Plt Count MPV Immature Gran % Seg Neutrophils % Lymphocytes % Monocytes % Eosinophils % Basophils % Neutrophils # Lymphocytes # Monocytes # Eosinophils # Basophils # ESR 39 H Sodium 139 Potassium 3.7 Chloride 104 Carbon Dioxide 24 BUN 10 Creatinine 0.61 L Est GFR ( Amer) > 60 Est GFR (Non-Af Amer) > 60 BUN/Creatinine Ratio 16 Glucose 269 H POC Glucose 283 H Calculated Osmolality 297 Calcium 8.6 Total Bilirubin 0.2 L AST 25 ALT 47 Alkaline Phosphatase 69 C-Reactive Protein 23 H Serum Total Protein 6.3 L Albumin 3.3 L Globulin 3.0 Albumin/Globulin Ratio 1.1 01/14/18 01/14/18 04:07 07:35 WBC 5.8 RBC 4.35 Hgb 11.3 L Hct 35.2 L MCV 80.9 L MCH 26.0 L MCHC 32.1 RDW 13.9 Plt Count 283 MPV 9.8 Immature Gran % 3.1 Seg Neutrophils % 63.7 Lymphocytes % 23.6 Monocytes % 7.3 Eosinophils % 1.6 Basophils % 0.7 Neutrophils # 3.7 Lymphocytes # 1.4 Monocytes # 0.4 Eosinophils # 0.1 Basophils # 0.0 ESR Sodium Potassium Chloride Carbon Dioxide BUN Creatinine Est GFR ( Amer) Est GFR (Non-Af Amer) BUN/Creatinine Ratio Glucose POC Glucose 230 H Calculated Osmolality Calcium Total Bilirubin AST ALT Alkaline Phosphatase C-Reactive Protein Serum Total Protein Albumin Globulin Albumin/Globulin Ratio Cultures: Cultures 01/11/18 08:45 Wound Culture - Final Right Great Toe Enterococcus faecalis 01/11/18 08:45 Anaerobic Culture - Preliminary Right Great Toe At this time, no anaerobic growth is present. The culture will be finalized after 5 days of incubation. 01/11/18 14:04 Blood Culture - Preliminary Peripheral Venipuncture Culture is incubating and being continuously monitored for growth. Final report to follow. 01/11/18 14:04 Blood Culture - Preliminary Peripheral Venipuncture Culture is incubating and being continuously monitored for growth. Final report to follow. Exam - Constitutional Vitals: Temp Pulse Resp BP Pulse Ox 98.8 F 70 18 166/114 94 01/14/18 11:32 01/14/18 11:32 01/14/18 11:32 01/14/18 11:32 01/14/18 11:32 General appearance: cooperative, no acute distress, obese - Head Head exam: Present: atraumatic, normal inspection, normocephalic - Eye Eye exam: Present: EOMI, normal appearance, PERRL Pupils: Present: normal accommodation - ENT ENT exam: Present: mucous membranes moist - Neck Neck exam: Present: normal inspection - Respiratory Respiratory exam: Present: CTAB. Absent: rales, respiratory distress, rhonchi, wheezes - Cardiovascular Cardiovascular exam: Present: RRR, +S1, +S2 - GI/Abdominal GI/Abdominal exam: Present: normal bowel sounds, soft. Absent: distended, tenderness - Extremities Exam Extremities exam: Absent: joint swelling, pedal edema, tenderness Additional comments: Bilateral foot dressings C/D/I. - Neurological Exam Neurological exam: Present: alert, oriented X3, no focal deficits - Psychiatric Psychiatric exam: Present: normal affect, normal mood - Skin Skin exam: Present: dry, intact, normal color, warm Consult Discharge Plan - Plan Referrals: Dominga Ewing CNP [Primary Care Provider] - 01/13/18 11:15 am Nakia Petty CNP [Advanced Practice Nurse] - 01/30/18 9:00 am Prescriptions: Levofloxacin [Levaquin] 750 mg PO DAILY #30 tablet Vancomycin [Vancocin (wt based)] 1,750 mg IV DAILY 30 Days vial - Attending Attestation I examined this patient and my medical decision-making was reviewed with the Resident Physician. I agree with the documented findings, disposition and treatment plan as described except to the extent set forth below.
[2018-01-14] MEDS ORDERED: Lidocaine 1% 20 ML MDV INFILT ONE (13:28)
[2018-01-14 15:36] VITALS: BP 160/103
--- NOTE | 2018-01-14 16:51 | Physician Discharge Referral ---
Home Health/Hosp Referral Info Transfer to: Home Health Attending Provider: Yanick Riley DO Provider in Charge Post Discharge: PCP - Diagnosis (1) Sepsis Priority: Primary Status: Resolved (2) Diabetic foot infection Priority: Primary Status: Acute (3) Diabetes Priority: Secondary Status: Chronic (4) HTN (hypertension) Priority: Secondary Status: Chronic (5) EDEL (obstructive sleep apnea) Priority: Secondary Status: Chronic - Respiratory Orders Smoking Cessation: Smoking cessation has been advised. For more information, call the [place] [employer] Quit Line at 7-734-LXJX-NOW. - Dressing/Wound Care Type of Dressing/Treatments w/Frequency: Per wound care - Diet/Nutrition Diet/Nutrition Orders: Regular (Diabetic) - Activity Activity Orders: Chair - Services Needed Following services are medically necessary services: Nursing - Transfer Medications Prescriptions: Levofloxacin [Levaquin] 750 mg PO DAILY #30 tablet Vancomycin [Vancocin (wt based)] 1,750 mg IV DAILY 30 Days vial Home Medications: Amitriptyline [Elavil] 25 mg PO HS 01/17/17 [History] Aspirin [Lo-Dose Aspirin EC] 81 mg PO DAILY 01/17/17 [History] Carvedilol [Coreg] 6.25 mg PO BIDWM 01/17/17 [History] Codeine/Butalbital/ASA/Caffein [Fiorinal with Codeine #3 Cap] 1 each PO Q8H PRN 01/17/17 [History] Gabapentin [Neurontin] 800 mg PO QID 01/17/17 [History] Ibuprofen [Motrin] 800 mg PO Q6-8H PRN 01/17/17 [History] Isosorbide MONOnitrate (24 HR) [Imdur] 30 mg PO DAILY 01/17/17 [History] Losartan Potassium [Cozaar] 50 mg PO DAILY 01/17/17 [History] Pyridostigmine Br [Mestinon] 60 mg PO Q8H 01/17/17 [History] Ropinirole HCl [Requip] 0.5 mg PO HS 01/17/17 [History] cloNIDine HCl [CloNIDine HCl] 0.1 mg PO BID PRN 01/17/17 [History] Budesonide/Formoterol 160/4.5 [Symbicort 160/4.5] 2 puff IH BIDR 04/11/17 [ History] Metformin HCl [Metformin HCl ER] 1,000 mg PO BID 04/11/17 [History] Sertraline [Zoloft] 25 mg PO DAILY 04/11/17 [History] Albuterol Sulfate [Proair Hfa] 2 puff IH Q4H PRN 07/11/17 [History] Atorvastatin [Lipitor] 40 mg PO HS 07/11/17 [History] Baclofen [Baclofen] 20 mg PO DAILY 07/11/17 [History] Carbidopa/Levodopa [Carbidopa-Levo 10-100 mg Odt] 1 tab PO DAILY 07/11/17 [ History] Ketoconazole 2% CRM [Nizoral Cream] 1 appl TP BID 07/11/17 [History] Lactobacillus Acidophilus [Acidophilus Probiotic] 1 mg PO DAILY 07/11/17 [ History] Liraglutide [Victoza 2-Raul] 1.2 mg IJ DAILY 07/11/17 [History] Meloxicam [Mobic] 7.5 mg PO BID PRN 07/11/17 [History] Nitroglycerin [Nitrostat] 0.4 mg SL Q5M PRN 07/11/17 [History] Nystatin [Nystatin] 1 appl TP TID PRN 07/11/17 [History] Clindamycin HCl 300 mg PO QID #28 capsule 01/02/18 [Rx] Insulin Regular, Human [Humulin R U-500 Kwikpen] 70 unit SQ QAM 01/06/18 [ History] Insulin Regular, Human [Humulin R U-500 Kwikpen] 90 unit SQ QPM 01/06/18 [ History] levoFLOXacin [Levaquin] 500 mg PO DAILY #10 tablet 01/06/18 [Rx] Levofloxacin [Levaquin] 750 mg PO DAILY #30 tablet 01/14/18 [Rx] Vancomycin [Vancocin (wt based)] 1,750 mg IV DAILY 30 Days vial 01/14/18 [Rx] Allergies/Adverse Reactions: 3 Allergy/AdvReac Type Severity Reaction Status Date / Time No Known Allergies Allergy Verified 01/06/18 19:53 Certification: Further, I certify that my clinical findings support that this patient is homebound (i.e. absences from home require considerable and taxing effort and are for medical reasons or [facility] or infrequently or short duration when for other reasons) because: Homebound Reason: Patient requires assistance of a person or device to safely leave home, Absences from home are contraindicated except to recieve medical care, Leaving home requires considerable and taxing effort due to condition (f) Attestation: My signature below is to certify that this patient is under my care and that I, or nurse practitioner, or a physician's assistant elementary teacher working with me, has a face-to -face encounter with this patient.
[2018-01-14] MEDS ORDERED: Aminoglycoside Consult 1 EACH MC ONE (17:58)
--- NOTE | 2018-01-14 19:03 | Discharge Summary ---
<Cecy Monzon N - Last Filed: 01/14/18 18:59> - NOTES TO OUTPATIENT PROVIDER Notes to Outpatient Provider: Patient was being treated for sepsis secondary to diabetic foot ulcer with osteomyelitis. He was receiving levaquin and vancomycin IV, with plans for vancomycin trough on 01/15 to ensure therapeutic levels were acheived. Patient left AMA on 01/14 and was advised to return to ED should symptoms worsen. Orders not resulted at time of discharge: Pending orders 01/11/18 08:45 Culture,Anaerobic [RM] Routine 01/11/18 14:04 Culture,Blood [BC] Routine Date of Encounter: 01/14/18 Time of Encounter: 04:40 - Discharge Diagnosis (2) Diabetes Priority: Secondary Status: Chronic Qualifiers: Diabetes mellitus type: type 1 Diabetes mellitus complication status: with neurologic complications Diabetes mellitus complication detail: with polyneuropathy Qualified Code(s): E10.42 - Type 1 diabetes mellitus with diabetic polyneuropathy (4) Sepsis Priority: Primary Status: Resolved Qualifiers: Sepsis type: Streptococcus group B Qualified Code(s): A40.1 - Sepsis due to streptococcus, group B (5) HTN (hypertension) Priority: Secondary Status: Chronic Qualifiers: Hypertension type: essential hypertension Qualified Code(s): I10 - Essential (primary) hypertension (7) Diabetic foot infection Priority: Secondary Status: Acute (8) EDEL (obstructive sleep apnea) Priority: Secondary Status: Chronic Hospital course: Mr. Noland was admitted from the ED on 01/10 with a diabetic foot infection that was being treated as an outpatient. He was taking levaquin but had continued fever and bacteremia. Patient met sepsis criteria upon admission. He underwent incision and drainage of his wound on 01/11. Initial antibiotic therapy included unasyn, which was changed to IV levaquin and vancomycin after preliminary bone biopsy results were received. A vancomycin trough was planned following his 4th dose of vancomycin; however, patient left AMA prior to this. Patient was counselled and educated on risks of leaving prior to completion of planned therapy, which included possible worsening of infection, dissemination of infection, and/or future surgery/amputation. Patient was alert and oriented x 3 and expressed understanding of these risks. Patient's family was present during this discussion and also voiced understanding of these risks. Patient was advised to keep all follow up appointments and to return to the ED should symptoms worsen or if new concerns were to arise. Discharge discussed with: patient, family, nurse (Nursing staff was present during patient discussion and also expressed risks to patient should he choose to leave AMA.), case management - Time Spent with Patient Total time spent providing and/or coordinating discharge services: Greater than 30 minutes - Discharge Medications Prescriptions: Levofloxacin [Levaquin] 750 mg PO DAILY #30 tablet Vancomycin [Vancocin (wt based)] 1,500 mg IV DAILY 30 Days vial Home Medications: Amitriptyline [Elavil] 25 mg PO HS 01/17/17 [History] Aspirin [Lo-Dose Aspirin EC] 81 mg PO DAILY 01/17/17 [History] Carvedilol [Coreg] 6.25 mg PO BIDWM 01/17/17 [History] Codeine/Butalbital/ASA/Caffein [Fiorinal with Codeine #3 Cap] 1 each PO Q8H PRN 01/17/17 [History] Gabapentin [Neurontin] 800 mg PO QID 01/17/17 [History] Ibuprofen [Motrin] 800 mg PO Q6-8H PRN 01/17/17 [History] Isosorbide MONOnitrate (24 HR) [Imdur] 30 mg PO DAILY 01/17/17 [History] Losartan Potassium [Cozaar] 50 mg PO DAILY 01/17/17 [History] Pyridostigmine Br [Mestinon] 60 mg PO Q8H 01/17/17 [History] Ropinirole HCl [Requip] 0.5 mg PO HS 01/17/17 [History] cloNIDine HCl [CloNIDine HCl] 0.1 mg PO BID PRN 01/17/17 [History] Budesonide/Formoterol 160/4.5 [Symbicort 160/4.5] 2 puff IH BIDR 04/11/17 [ History] Metformin HCl [Metformin HCl ER] 1,000 mg PO BID 04/11/17 [History] Sertraline [Zoloft] 25 mg PO DAILY 04/11/17 [History] Albuterol Sulfate [Proair Hfa] 2 puff IH Q4H PRN 07/11/17 [History] Atorvastatin [Lipitor] 40 mg PO HS 07/11/17 [History] Baclofen [Baclofen] 20 mg PO DAILY 07/11/17 [History] Carbidopa/Levodopa [Carbidopa-Levo 10-100 mg Odt] 1 tab PO DAILY 07/11/17 [ History] Ketoconazole 2% CRM [Nizoral Cream] 1 appl TP BID 07/11/17 [History] Lactobacillus Acidophilus [Acidophilus Probiotic] 1 mg PO DAILY 07/11/17 [ History] Liraglutide [Victoza 2-Raul] 1.2 mg IJ DAILY 07/11/17 [History] Meloxicam [Mobic] 7.5 mg PO BID PRN 07/11/17 [History] Nitroglycerin [Nitrostat] 0.4 mg SL Q5M PRN 07/11/17 [History] Nystatin [Nystatin] 1 appl TP TID PRN 07/11/17 [History] Clindamycin HCl 300 mg PO QID #28 capsule 01/02/18 [Rx] Insulin Regular, Human [Humulin R U-500 Kwikpen] 70 unit SQ QAM 01/06/18 [ History] Insulin Regular, Human [Humulin R U-500 Kwikpen] 90 unit SQ QPM 01/06/18 [ History] levoFLOXacin [Levaquin] 500 mg PO DAILY #10 tablet 01/06/18 [Rx] Levofloxacin [Levaquin] 750 mg PO DAILY #30 tablet 01/14/18 [Rx] Vancomycin [Vancocin (wt based)] 1,500 mg IV DAILY 30 Days vial 01/14/18 [Rx] Allergies/Adverse Reactions: 3 Allergy/AdvReac Type Severity Reaction Status Date / Time No Known Allergies Allergy Verified 01/06/18 19:53 Date of admission: 01/10/18 08:52 Primary care physician: Dominga Ewing CNP Consults: 01/10/18 08:25 Consult to Podiatry [CONS] Routine Consulting Provider: [facility] Reason for Consult: Bilateral great toe ulcers with sepsis Time Notified: 08:25 Call Completed: Yes 01/13/18 09:52 Consult to Infectious Diseases [CONS] Routine Consulting Provider: [facility] [place] Reason for Consult: DM foot, osteo, Gp B Strep bacteremia Time Notified: 09:53 Call Completed: Yes 01/14/18 13:28 Consult to Invasive Line Access Team [CONS] Routine Reason for Consult: Picc Line Insertion Line Type: PICC Discharging clinician: Cecy Monzon Anticipated date of discharge: 01/15/18 (Patient left AMA on 01/14/2018.) - Constitutional Vitals: Temp Pulse Resp BP Pulse Ox 97.9 F 66 16 160/103 98 01/14/18 15:34 01/14/18 15:34 01/14/18 15:34 01/14/18 15:34 01/14/18 15:34 Exam: Patient is alert and responds to questions appropriately. He appears to be resting in bed comfortably, and does not appear to be in acute distress. - Head Additional comments: Atraumatic and normocephalic. - Neck Additional comments: No apparent abnormalities. Neck is soft and supple with no JVD or tracheal deviation. No lymphadenopathy. - Respiratory Additional comments: Lungs clear to auscultation bilaterally. No accessory muscle use appreciated. - Cardiovascular Additional comments: Regular rate and rhythm. No murmurs, rubs, or gallops. - Neurological Exam Additional comments: Patient moves all extremities spontaneously. No apparent focal deficits. - Patient Status Disposition: Left Against Medical Advice Condition: Fair Functional capacity at discharge: independent ambulation Overall status at discharge: patient is not back to baseline - Discharge Instructions Instructions: Vancomycin (Injection), Levofloxacin (By mouth), Heart Failure ( DC), Cellulitis (DC), Diabetic Foot Care (DC), Sepsis (DC), Chronic Hypertension (DC) Follow Up With: Nakia Petty CNP [Advanced Practice Nurse] - 01/30/18 9:00 am Dominga Ewing CNP [Primary Care Provider] - 01/13/18 11:15 am Additional Instructions: Take antibiotics as prescribed and follow up with PCP in 3-5 days. Keep follow up appointment with surgeon as scheduled. Follow up with ID on 01/30/18 at 0900. Return to emergency department if symptoms worsen or if new concerns arise. - Diet and Activity Activity: resume usual activities as tolerated Diet: advance to your usual diet <Yanick Riley - Last Filed: 01/15/18 12:49> Orders not resulted at time of discharge: Pending orders 01/11/18 08:45 Culture,Anaerobic [RM] Routine 01/11/18 14:04 Culture,Blood [BC] Routine Date of Encounter: 01/14/18 Time of Encounter: 16:40 - Discharge Diagnosis (1) Diabetes Status: Chronic Qualifiers: Diabetes mellitus type: type 1 Diabetes mellitus complication status: with neurologic complications Diabetes mellitus complication detail: with polyneuropathy Qualified Code(s): E10.42 - Type 1 diabetes mellitus with diabetic polyneuropathy (2) Bacteremia Status: Resolved (3) Diabetic foot ulcer Priority: Primary Status: Inactive Qualifiers: Diabetic foot ulcer location: toe Diabetes mellitus type: type 1 Laterality: unspecified laterality Non-pressure ulcer stage: limited to breakdown of skin Qualified Code(s): E10.621 - Type 1 diabetes mellitus with foot ulcer; L97.501 - Non-pressure chronic ulcer of other part of unspecified foot limited to breakdown of skin (4) Sepsis Status: Resolved Qualifiers: Sepsis type: Streptococcus group B Qualified Code(s): A40.1 - Sepsis due to streptococcus, group B (5) HTN (hypertension) Status: Chronic Qualifiers: Hypertension type: essential hypertension Qualified Code(s): I10 - Essential (primary) hypertension (6) EDEL (obstructive sleep apnea) Status: Chronic Hospital course: Mr. Noland is a 37 year old male - Time Spent with Patient Total time spent providing and/or coordinating discharge services: Date of admission: 01/10/18 08:52 Primary care physician: Dominga Ewing CNP Consults: 01/10/18 08:25 Consult to Podiatry [CONS] Routine Consulting Provider: [facility] Reason for Consult: Bilateral great toe ulcers with sepsis Time Notified: 08:25 Call Completed: Yes 01/13/18 09:52 Consult to Infectious Diseases [CONS] Routine Consulting Provider: [facility] [place] Reason for Consult: DM foot, osteo, Gp B Strep bacteremia Time Notified: 09:53 Call Completed: Yes 01/14/18 13:28 Consult to Invasive Line Access Team [CONS] Routine Reason for Consult: Picc Line Insertion Line Type: PICC - Constitutional Vitals: Temp Pulse Resp BP Pulse Ox 97.9 F 66 16 160/103 98 01/14/18 15:34 01/14/18 15:34 01/14/18 15:34 01/14/18 15:34 01/14/18 15:34 - Attending Attestation I examined this patient and my medical decision-making was reviewed with the Resident Physician on 01/14/18. I agree with the documented findings, disposition and treatment plan as described except to the extent set forth below. See event note of this date.
--- NOTE | 2018-01-14 19:12 | Event Note ---
Date of Encounter: 01/14/18 Time of Encounter: 14:30 I examined this patient and my medical decision-making was reviewed with the Resident Physician on 01/14/18. I agree with the documented findings, disposition and treatment plan as described except to the extent set forth below. Mr Noland was admitted for diabetic foot infection. He was seen by ID and podiatry. He was to be discharged on IV abx later this week when dose was known and could be set up. He left AMA today. He was informed of risks. Exam Alert Mucus membranes dry Heart reg No wheeze I/P 1. Diabetic foot infection 2. Uncontrolled DM Further information and diagnoses per discharge summary of this date. D/C time 39min
== END 2018-01-14 17:59 | disposition left against medical advice (07) | DRG 710 ==
LOC: 2NENU → SUATTDRO 08:52
PROVIDERS: ADMIT Family Medicine; ATTEND Internal Medicine

== ENCOUNTER 2018-04-24 13:07 | Inpatient (IN) ==
[2018-04-24] MEDS ORDERED: *HR* HYDROcodone/Acet 10/325 mg TABLET PO ONE (13:26)
--- NOTE | 2018-04-24 13:42 | Emergency Department Note ---
Disposition Clinical Impression: Foreign body in right foot Qualifiers: Encounter type: initial encounter Qualified Code(s): S90.851A - Superficial foreign body, right foot, initial encounter Disposition: Still a Patient Condition: Good Referrals: Dominga Ewing CNP [Primary Care Provider] - General Adult HPI - General Chief complaint: ED Skin/Abscess/Foreign Body Stated complaint: "FB in L Foot" Time Seen by Provider: 04/24/18 13:21 Source: patient Limitations: no limitations - History of Present Illness HPI Narrative: ED ATTESTATION NOTE: I examined this patient and my medical decision-making was reviewed with the Resident Physician/NEWSPAPER DELIVERY COUNSELOR/PA/Student. I have personally performed a face to face evaluation on this patient & I agree with the documented findings, disposition and treatment plan as described except to the extent set forth below. Patient was seen with emergency medicine resident Dr. Greg Nesbitt please see copy of his note for details of this encounter Briefly: 37-year-old male diabetic stepped on a short tooth at home about a day or so ago was seen at an outpatient urgent care x-ray showed foreign body in the ball of his foot he was given a prescription for an antibiotic which she did not fill normal S1 it is he is coming back for increased pain and drainage. He does have a follow-up appointment on Saturday with the mail carrier here. Patient is otherwise afebrile with stable vital signs no signs of acute neurovascular compromise in his foot foreign body is 3 mm per radiology read and ventral to the first MTP. We will consult podiatry. Disposition pending. Pain Scale: 9 - Related Data Home Medications Medication Instructions Recorded Confirmed Amitriptyline [Elavil] 25 mg PO HS 01/17/17 01/10/18 Aspirin [Lo-Dose Aspirin EC] 81 mg PO DAILY 01/17/17 01/10/18 Carvedilol [Coreg] 6.25 mg PO BIDWM 01/17/17 01/10/18 Codeine/Butalbital/ASA/Caffein 1 each PO Q8H PRN 01/17/17 01/06/18 [Fiorinal with Codeine #3 Cap] Gabapentin [Neurontin] 800 mg PO QID 01/17/17 01/10/18 Ibuprofen [Motrin] 800 mg PO Q6-8H PRN 01/17/17 01/10/18 Isosorbide MONOnitrate (24 HR) 30 mg PO DAILY 01/17/17 01/10/18 [Imdur] Losartan Potassium [Cozaar] 50 mg PO DAILY 01/17/17 01/10/18 Pyridostigmine Br [Mestinon] 60 mg PO Q8H 01/17/17 01/10/18 Ropinirole HCl [Requip] 0.5 mg PO HS 01/17/17 01/06/18 cloNIDine HCl [CloNIDine HCl] 0.1 mg PO BID PRN 01/17/17 01/10/18 Budesonide/Formoterol 160/4.5 2 puff IH BIDR 04/11/17 01/10/18 [Symbicort 160/4.5] Metformin HCl [Metformin HCl ER] 1,000 mg PO BID 04/11/17 01/10/18 Sertraline [Zoloft] 25 mg PO DAILY 04/11/17 01/10/18 Albuterol Sulfate [Proair Hfa] 2 puff IH Q4H PRN 07/11/17 01/06/18 Atorvastatin [Lipitor] 40 mg PO HS 07/11/17 01/10/18 Baclofen [Baclofen] 20 mg PO DAILY 07/11/17 01/10/18 Carbidopa/Levodopa [Carbidopa-Levo 1 tab PO DAILY 07/11/17 01/10/18 10-100 mg Odt] Ketoconazole 2% CRM [Nizoral Cream] 1 appl TP BID 07/11/17 01/06/18 Lactobacillus Acidophilus 1 mg PO DAILY 07/11/17 01/10/18 [Acidophilus Probiotic] Liraglutide [Victoza 2-Raul] 1.2 mg IJ DAILY 07/11/17 01/10/18 Meloxicam [Mobic] 7.5 mg PO BID PRN 07/11/17 01/10/18 Nitroglycerin [Nitrostat] 0.4 mg SL Q5M PRN 07/11/17 01/10/18 Nystatin [Nystatin] 1 appl TP TID PRN 07/11/17 01/06/18 Insulin Regular, Human [Humulin R 70 unit SQ QAM 01/06/18 01/10/18 U-500 Kwikpen] Insulin Regular, Human [Humulin R 90 unit SQ QPM 01/06/18 01/10/18 U-500 Kwikpen] Previous Rx's Medication Instructions Recorded Clindamycin HCl 300 mg PO QID #28 capsule 01/02/18 levoFLOXacin [Levaquin] 500 mg PO DAILY #10 tablet 01/06/18 Levofloxacin [Levaquin] 750 mg PO DAILY #30 tablet 01/14/18 Vancomycin [Vancocin (wt based)] 1,500 mg IV DAILY 30 Days vial 01/14/18 Allergies Allergy/AdvReac Type Severity Reaction Status Date / Time No Known Allergies Allergy Verified 01/06/18 19:53 Past Medical History - Past Medical History Medical history: Reports: CHF, diabetes, hyperlipidemia, hypertension Surgical history: Reports: pacemaker Psychiatric history: Reports: anxiety, depression - Social History Smoking Status: Never smoker Smokeless Tobacco Status: No Alcohol use: Reports: none Drug use: Reports: none Physical Exam - General Limitations: no limitations General appearance: alert, in no apparent distress Course Vital Signs Temperature 98.2 F 04/24/18 13:09 Pulse Rate 105 04/24/18 13:09 Respiratory Rate 20 04/24/18 13:09 Blood Pressure 119/78 04/24/18 13:09 O2 Sat by Pulse Oximetry 98 04/24/18 13:09 Temperature 98.2 F 04/24/18 13:09 Pulse Rate 105 04/24/18 13:09 Respiratory Rate 20 04/24/18 13:09 Blood Pressure 119/78 04/24/18 13:09 O2 Sat by Pulse Oximetry 98 04/24/18 13:09 Oxygen Delivery Oxygen Delivery Room Air
--- NOTE | 2018-04-24 13:46 | Emergency Department Note ---
Disposition Clinical Impression: Cellulitis of foot Foreign body in right foot Qualifiers: Encounter type: initial encounter Qualified Code(s): S90.851A - Superficial foreign body, right foot, initial encounter Disposition: Admitted As Inpatient Condition: Undetermined Referrals: Dominga Ewing, MANAGER MERCHANDISING [Primary Care Provider] - Forms: ED Satisfaction Letter Time of Disposition: 14:49 Skin/Abscess/FB HPI Chief complaint: ED Skin/Abscess/Foreign Body Stated complaint: "FB in L Foot" Time Seen by Provider: 04/24/18 13:21 Source: patient Mode of arrival: ambulatory Limitations: no limitations Nursing Notes Reviewed: Yes Vital Signs Reviewed: Yes HPI Narrative: 37-year-old male diabetic arrives to the emergency department with complaint of foreign body sensation as well as retained foreign body in right foot. The patient stepped on a piece of sharp tooth roughly 4 days ago and was noted to have a foreign body retained in his right foot. The patient has been experiencing worsening pain and swelling of his right foot at the base of his first metatarsal. The patient went to outside emergency department one day ago and was prescribed anabiotic's with close follow-up with podiatry. The patient states he did not fill his antibiotic like he is supposed to and states he is expressing worsening pain today. The patient denies any fevers. He was initially tachycardic upon evaluation but the patient states his ambulation. The patient no longer tachycardic on evaluation. He denies any other complaints at this time. He is resting comfortably in the room. The patient does have some serosanguineous discharge mixed with a small amount of purulent discharge. Home Medications Medication Instructions Recorded Confirmed Amitriptyline [Elavil] 25 mg PO HS 01/17/17 01/10/18 Aspirin [Lo-Dose Aspirin EC] 81 mg PO DAILY 01/17/17 01/10/18 Carvedilol [Coreg] 6.25 mg PO BIDWM 01/17/17 01/10/18 Codeine/Butalbital/ASA/Caffein 1 each PO Q8H PRN 01/17/17 01/06/18 [Fiorinal with Codeine #3 Cap] Gabapentin [Neurontin] 800 mg PO QID 01/17/17 01/10/18 Ibuprofen [Motrin] 800 mg PO Q6-8H PRN 01/17/17 01/10/18 Isosorbide MONOnitrate (24 HR) 30 mg PO DAILY 01/17/17 01/10/18 [Imdur] Losartan Potassium [Cozaar] 50 mg PO DAILY 01/17/17 01/10/18 Pyridostigmine Br [Mestinon] 60 mg PO Q8H 01/17/17 01/10/18 Ropinirole HCl [Requip] 0.5 mg PO HS 01/17/17 01/06/18 cloNIDine HCl [CloNIDine HCl] 0.1 mg PO BID PRN 01/17/17 01/10/18 Budesonide/Formoterol 160/4.5 2 puff IH BIDR 04/11/17 01/10/18 [Symbicort 160/4.5] Metformin HCl [Metformin HCl ER] 1,000 mg PO BID 04/11/17 01/10/18 Sertraline [Zoloft] 25 mg PO DAILY 04/11/17 01/10/18 Albuterol Sulfate [Proair Hfa] 2 puff IH Q4H PRN 07/11/17 01/06/18 Atorvastatin [Lipitor] 40 mg PO HS 07/11/17 01/10/18 Baclofen [Baclofen] 20 mg PO DAILY 07/11/17 01/10/18 Carbidopa/Levodopa [Carbidopa-Levo 1 tab PO DAILY 07/11/17 01/10/18 10-100 mg Odt] Ketoconazole 2% CRM [Nizoral Cream] 1 appl TP BID 07/11/17 01/06/18 Lactobacillus Acidophilus 1 mg PO DAILY 07/11/17 01/10/18 [Acidophilus Probiotic] Liraglutide [Victoza 2-Raul] 1.2 mg IJ DAILY 07/11/17 01/10/18 Meloxicam [Mobic] 7.5 mg PO BID PRN 07/11/17 01/10/18 Nitroglycerin [Nitrostat] 0.4 mg SL Q5M PRN 07/11/17 01/10/18 Nystatin [Nystatin] 1 appl TP TID PRN 07/11/17 01/06/18 Insulin Regular, Human [Humulin R 70 unit SQ QAM 01/06/18 01/10/18 U-500 Kwikpen] Insulin Regular, Human [Humulin R 90 unit SQ QPM 01/06/18 01/10/18 U-500 Kwikpen] Previous Rx's Medication Instructions Recorded Clindamycin HCl 300 mg PO QID #28 capsule 01/02/18 levoFLOXacin [Levaquin] 500 mg PO DAILY #10 tablet 01/06/18 Levofloxacin [Levaquin] 750 mg PO DAILY #30 tablet 01/14/18 Vancomycin [Vancocin (wt based)] 1,500 mg IV DAILY 30 Days vial 01/14/18 Allergies Allergy/AdvReac Type Severity Reaction Status Date / Time No Known Allergies Allergy Verified 01/06/18 19:53 All systems ED: reviewed and negative except as stated. Constitutional: Denies: fever, chills, weakness ENT ED: Denies: congestion Cardiovascular: Denies: chest pain Respiratory: Denies: dyspnea Gastrointestinal: Denies: abdominal pain, nausea Genitourinary: Denies: urgency, dysuria Musculoskeletal: Denies: back pain, neck pain Integumentary: Reports: lesions. Denies: rash Neurological: Denies: headache Past Medical History - Past Medical History Attestation: Yes The following information was validated with the patient. Source: patient, old records reviewed Medical history: Reports: CHF, diabetes, hyperlipidemia, hypertension Surgical history: Reports: pacemaker Psychiatric history: Reports: anxiety, depression - Social History Smoking Status: Never smoker Smokeless Tobacco Status: No Alcohol use: Reports: none Drug use: Reports: none Physical Exam - General Limitations: no limitations General appearance: alert, in no apparent distress - Head Head exam: atraumatic, normocephalic, normal inspection - Eye Eye exam: Present: normal appearance, PERRL, EOMI - ENT ENT exam: normal exam, normal oropharynx, mucous membranes moist - Neck Neck exam: Present: normal inspection, full ROM, trachea midline - Chest Chest inspection: Present: normal inspection, symmetric chest wall rise - Respiratory Respiratory exam: Present: normal lung sounds bilaterally - Cardiovascular Cardiovascular exam: Present: regular rate, normal rhythm, normal heart sounds - Abdominal Exam Abdominal exam: Present: soft, Non-Tender. Absent: tenderness, distention, guarding, rebound, rigidity - Extremities Exam Extremities exam: Present: full ROM, tenderness (Right foot), other (Patient is right foot has a large amount of erythema with serosanguineous and purulent discharge from the puncture site. Patient has some tenderness located in that region as well. No crepitus noted.) - Skin Skin exam: Present: warm, dry, erythema Course - Consultations Consultation #1: We spoke with Dr. Moreno in podiatry who recommended that we admit the patient to the hospital with vancomycin and Zosyn. The patient will be admitted to the hospitalist at this time. They will likely take the patient to the OR for extraction of the foreign body. Time: 13:52 Vital Signs Temperature 98.2 F 04/24/18 13:09 Pulse Rate 105 04/24/18 13:09 Respiratory Rate 20 04/24/18 13:09 Blood Pressure 119/78 04/24/18 13:09 O2 Sat by Pulse Oximetry 98 04/24/18 13:09 Temperature 98.2 F 04/24/18 13:09 Pulse Rate 105 04/24/18 13:09 Respiratory Rate 20 04/24/18 13:09 Blood Pressure 119/78 04/24/18 13:09 O2 Sat by Pulse Oximetry 98 04/24/18 13:09 Oxygen Delivery Oxygen Delivery Room Air Skin/Abscess/Foreign Body - MDM Narrative Medical decision making narrative: Patient's workup in the emergency department demonstrates a lab work is stable. The patient case was discussed with on-call podiatry recommended admission with IV anabiotic's. Patient was given headache and Zosyn per recommendation. We will admit the patient to the hospitalist at this time, accepted by Dr. Cotton - Lab Data Lab results reviewed: Yes I reviewed the patient's lab results. Result diagrams: 04/24/18 14:06 04/24/18 14:06 Lab Results 04/24/18 04/24/18 04/24/18 Range/Units 14:06 14:06 14:06 WBC 11.0 (4.3-11.1) K/mcL RBC 4.64 (4.19-5.50) M/mcL Hgb 11.8 L (12.9-16.9) g/dL Hct 36.0 L (37.5-50.1) % MCV 77.6 L (83.0-100.0) fL MCH 25.4 L (28.0-33.3) pg MCHC 32.8 (31.6-35.5) g/dL RDW 13.9 (11.5-14.5) % Plt Count 198 (140-400) K/mcL MPV 10.6 (9.4-12.4) fL Immature Gran % 0.6 (0-4) % Seg Neutrophils % 79.9 % Lymphocytes % 10.2 % Monocytes % 7.3 % Eosinophils % 1.8 % Basophils % 0.2 % Neutrophils # 8.8 (1.6-8.9) K/mcL Lymphocytes # 1.1 (0.6-4.6) K/mcL Monocytes # 0.8 (0.0-1.3) K/mcL Eosinophils # 0.2 (0.0-0.6) K/mcL Basophils # 0.0 (0.0-0.2) K/mcL PT 11.9 (9.4-12.1) Seconds INR 1.1 Sodium 135 L (136-145) mEq/L Potassium 3.8 (3.5-5.1) mEq/L Chloride 101 (98-107) mEq/L Carbon Dioxide 25 (23-29) mEq/L BUN 19 (6-20) mg/dL Creatinine 0.69 L (0.70-1.30) mg/dL Est GFR ( Amer) > 60 (> 60) Est GFR (Non-Af Amer) > 60 (> 60) BUN/Creatinine Ratio 28 H (6-26) Glucose 374 H (70-105) mg/dL Calculated Osmolality 298 (280-300) Calcium 9.0 (8.6-10.3) mg/dL
[2018-04-24] MEDS ORDERED: Piperacillin/Tazobactam 3.375 GM in Water for inj. (sterile) 20 ML 20 ML IVP ONE (13:50)
[2018-04-24] MEDS ORDERED: 0.9 % Sodium Chloride 1,000 ML IVC ONE (13:58)
[2018-04-24 14:28] LABS: Basophils % 0.2 %; Eosinophils # 0.2 K/mcL (0.0-0.6); Eosinophils % 1.8 %; Hemoglobin 11.8 g/dL (12.9-16.9); Immature Granulocytes % 0.6 % (0-4); Lymphocytes # 1.1 K/mcL (0.6-4.6); Lymphocytes % 10.2 %; Mean Corpuscular HGB Conc 32.8 g/dL (31.6-35.5); Mean Corpuscular Hemoglobin 25.4 pg (28.0-33.3); Mean Corpuscular Volume 77.6 fL (83.0-100.0); Mean Platelet Volume 10.6 fL (9.4-12.4); Monocytes # 0.8 K/mcL (0.0-1.3); Monocytes % 7.3 %; Neutrophils # 8.8 K/mcL (1.6-8.9); Platelet Count 198 K/mcL (140-400); Red Blood Count 4.64 M/mcL (4.19-5.50); Red Cell Distribution Width 13.9 % (11.5-14.5); Segmented Neutrophils % 79.9 %
[2018-04-24 14:39] LABS: INR 1.1; Prothrombin Time 11.9 Seconds (9.4-12.1)
[2018-04-24 14:45] LABS: BUN/Creatinine Ratio 28 (6-26); Blood Urea Nitrogen 19 mg/dL (6-20); Carbon Dioxide 25 mEq/L (23-29); Chloride 101 mEq/L (98-107); Glucose 374 mg/dL (70-105); Osmolality,Calculated 298 (280-300); Potassium 3.8 mEq/L (3.5-5.1); Sodium 135 mEq/L (136-145); eGFR For Non-African Americans > 60 (> 60)
[2018-04-24] MEDS ORDERED: Isovue-370 500 ML INFUS..BTL IV ONE (15:53)
[2018-04-24] MEDS ORDERED: cloNIDine HCl 0.1 MG TABLET PO PRN (15:54)
[2018-04-24] MEDS ORDERED: [UNRECOGNIZED DRUG - OTHER] PO PRN (15:54)
[2018-04-24] MEDS ORDERED: Naloxone 0.4 MG/ML INJ IVP PRN (15:56)
[2018-04-24] MEDS ORDERED: *HR* HYDROcodone/Acet 5/325 mg TABLET PO PRN (15:56)
[2018-04-24] MEDS ORDERED: Acetaminophen 325 MG TABLET PO PRN (15:56)
--- NOTE | 2018-04-24 16:04 | Internal Med History&Physical ---
Date of Encounter: 04/24/18 Time of Encounter: 16:01 Internal Medicine - H&P: HPI Chief complaint: I stepped on a sharp object Admitted From: Home Plans for Post Hospital Care: Home History of present illness: Mr. Noland is a 37 year old male with PMH of DM, HTN, EDEL, pacemaker, chronic left foot diabetic ulcer, CHF, hyperlipidemia, morbid obesity, depression who presented to the ER with complaints of foreign body in the left foot. The patient was seen and examined in the emergency room. He reports being in his usual state of health until 3 days ago when he stepped on a sharp object which is said to be a sharp tooth which had been broken and was being toyed with by his children. He attempted to remove the object was unable to. He presented to his primary care physician yesterday who prescribed antibiotics for him however, he has not taken the antibiotics because he was unable to fill them. He did get a tetanus toxoid shot by his PCP. He will presented to the ER today because of worsening swelling and redness, he has neuropathy of the left foot describes pain is radiating from his ankles O2 his knees. He denies fever or chills, he has not taken any medications since incident. He denies chest pain, shortness of breath, cough, orthopnea, he has no change in bowel or urinary habits. He reports compliance with his home medications including his insulin. Denies no prior renal pathology. In the emergency room workup shows no leukocytosis, he is afebrile, CBC and chem were at baseline. Blood cultures were drawn and patient was started on vancomycin and Zosyn in hospital team was consulted for admission. I requested a foot CT with contrast due to exam findings and it is reported as cellulitis with OM, foreign body with surrounding gas. Podiatry has been consulted by ER team, patient will be admitted to be managed for cellulitis and infection of L foot due to likely foreign object, as well as OM. He is high risk due to risk of progression to sepsis and use of vancomcin which requires monitoring to prevent toxic levels Plan of care discussed with the patient who verbalized understanding Past Med Surg Social Fam HX - Past Medical History Medical history: CHF, diabetes, hyperlipidemia, hypertension Additional medical history: CARDIOMEGALY, EDEL Psychiatric history: anxiety, depression - Past Surgical History Surgical History: pacemaker Additional surgical history: bladder sx,heart cath x6 - Social History Smoking Status: Never smoker Smokeless Tobacco Status: No Alcohol use: none Drug use: none - Family History Father Hx Family Cardiac Disorders: Yes (Heart disease) Mother Hx Family Cardiac Disorders: Yes (heart disease) Hx Family Cancer: Yes (Bladder cancer) Hx Family Endocrine Disorder: Yes (DM) Internal Medicine - H&P: Meds Amitriptyline [Elavil] 25 mg PO HS 01/17/17 [History] Aspirin [Lo-Dose Aspirin EC] 81 mg PO DAILY 01/17/17 [History] Carvedilol [Coreg] 6.25 mg PO BIDWM 01/17/17 [History] Codeine/Butalbital/ASA/Caffein [Fiorinal with Codeine #3 Cap] 1 each PO Q8H PRN 01/17/17 [History] Gabapentin [Neurontin] 800 mg PO QID 01/17/17 [History] Ibuprofen [Motrin] 800 mg PO Q6-8H PRN 01/17/17 [History] Isosorbide MONOnitrate (24 HR) [Imdur] 30 mg PO DAILY 01/17/17 [History] Losartan Potassium [Cozaar] 50 mg PO DAILY 01/17/17 [History] Pyridostigmine Br [Mestinon] 60 mg PO Q8H 01/17/17 [History] Ropinirole HCl [Requip] 0.5 mg PO HS 01/17/17 [History] cloNIDine HCl [CloNIDine HCl] 0.1 mg PO BID PRN 01/17/17 [History] Budesonide/Formoterol 160/4.5 [Symbicort 160/4.5] 2 puff IH BIDR 04/11/17 [ History] Metformin HCl [Metformin HCl ER] 1,000 mg PO BID 04/11/17 [History] Sertraline [Zoloft] 25 mg PO DAILY 04/11/17 [History] Albuterol Sulfate [Proair Hfa] 2 puff IH Q4H PRN 07/11/17 [History] Atorvastatin [Lipitor] 40 mg PO HS 07/11/17 [History] Baclofen [Baclofen] 20 mg PO DAILY 07/11/17 [History] Carbidopa/Levodopa [Carbidopa-Levo 10-100 mg Odt] 1 tab PO DAILY 07/11/17 [ History] Lactobacillus Acidophilus [Acidophilus Probiotic] 1 mg PO DAILY 07/11/17 [ History] Liraglutide [Victoza 2-Raul] 1.2 mg IJ DAILY 07/11/17 [History] Nitroglycerin [Nitrostat] 0.4 mg SL Q5M PRN 07/11/17 [History] Insulin Regular, Human [Humulin R U-500 Kwikpen] 80 unit SQ BID 01/06/18 [ History] 3 Allergy/AdvReac Type Severity Reaction Status Date / Time No Known Allergies Allergy Verified 01/06/18 19:53 All Systems PM: A 10-system review of systems was performed and is negative for pertinent findings except as documented above in the HPI. - Constitutional Constitutional: as per HPI - EENT Eyes: as per HPI Ears: as per HPI Nose, mouth and throat: as per HPI - Cardiovascular Cardiovascular ROS IM: as per HPI - Respiratory Respiratory: as per HPI - Gastrointestinal Gastrointestinal: as per HPI - Musculoskeletal Musculoskeletal ROS IM: as per HPI - Integumentary Integumentary IM: as per HPI - Neurological Neurological ROS: as per HPI - Hematologic/Lymphatic Hematologic/Lymphatic: as per HPI - Constitutional Vitals: Temp Pulse Resp BP Pulse Ox 98.2 F 105 20 119/78 98 04/24/18 13:09 04/24/18 13:09 04/24/18 13:09 04/24/18 13:09 04/24/18 13:09 General appearance: Present: A&O X 3, morbidly obese, pleasant, no acute distress Exam: see below - Eye Eye exam: Present: PERRL, conjuntiva pink, sclera anicteric Pupils: Present: PERRL - Neck Neck exam general surgery: Present: supple, trachea midline. Absent: lymphadenopathy - Respiratory Respiratory exam: Present: CTAB. Absent: accessory muscle use, rales, rhonchi, wheezes - Cardiovascular Cardiovascular exam: Present: RRR, +S1, +S2. Absent: diastolic murmur, gallop, rubs, systolic murmur - GI/Abdominal GI/Abdominal exam: Present: normal bowel sounds, soft, no peritoneal signs. Absent: distended, tenderness - Extremities Exam Extremities exam: Present: normal capillary refill, pedal edema, tenderness, warm, radial pulses palpable and symmetrical. Absent: calf tenderness, cyanotic , normal inspection Additional comments: Left foot with diffuse erythema, focus /entry of infections seen on the plantar surface, just beneath the 3rd toe. he has a chronic ulcer on the big toe that looks uninfected He has diffuse pus visible under the skin His left foot is warm and tender He has lymphangitis up to the knee There is no crepitus but induration is present on the plantar surface - Neurological Exam Neurological exam: Present: alert, CN II-XII intact, oriented X3, no focal deficits. Absent: pronater drift, facial droop, speech deficit - Skin Skin exam: Present: abrasion Internal Med - H&P Results - Labs CBC & Chem 7: 04/24/18 14:06 04/24/18 14:06 - Assessment and plan (1) Cellulitis of foot Current Visit: Yes Status: Acute Assessment and plan: Due to foreign body Left foot CT noted: 1. Ulceration along the plantar aspect of the great toe with adjacent soft tissue change most suggestive of cellulitis. No definite well-defined drainable fluid collection identified. 2. Small erosion along the medial aspect of the distal proximal 1st phalanx which has progressed compared with prior CT and is highly suspicious for osteomyelitis given the adjacent soft tissue ulceration. 3. 4 mm radiopaque foreign body along the plantar foot with surrounding subcutaneous gas. No sepsis features-No fever or chills, no tachycardia, no leukocytosis Blood cultures have been drawn Associated OM Continue jhono and [employer] 9 Thru 12 Teacher consulted by ER Consider Infectious disease panel after bone biopsy Will send biomarkers-CRP and ESR Continue pain control Continue blood sugar control (2) Osteomyelitis Current Visit: Yes Status: Acute Assessment and plan: see above Qualifiers: Osteomyelitis type: other acute Osteomyelitis location: foot Laterality: left Qualified Code(s): M86.172 - Other acute osteomyelitis, left ankle and foot (3) Foreign body in left foot with infection Current Visit: Yes Status: Acute Assessment and plan: as in cellulitis Podiatry eval is pending Qualifiers: Encounter type: initial encounter Qualified Code(s): S90.852A - Superficial foreign body, left foot, initial encounter; L08.9 - Local infection of the skin and subcutaneous tissue, unspecified (4) Chronic ulcer of left foot with fat layer exposed Current Visit: Yes Status: Chronic Assessment and plan: Associated supra-infection, see above (5) DVT prophylaxis Current Visit: Yes Status: Acute Assessment and plan: SQ heparin (6) Type 2 diabetes mellitus with foot ulcer Current Visit: Yes Status: Chronic Assessment and plan: Resume basal, prandial and correctonal insulin FS ACHS ADA diet Hold home dose of metformin, patient given contrast today Qualifiers: Diabetes mellitus half-way insulin use: with half-way use Qualified Code( s): E11.621 - Type 2 diabetes mellitus with foot ulcer; L97.509 - Non-pressure chronic ulcer of other part of unspecified foot with unspecified severity; Z79.4 - skilled nursing (current) use of insulin (7) HTN (hypertension) Current Visit: Yes Status: Chronic Assessment and plan: Continue home medications Qualifiers: Hypertension type: essential hypertension Qualified Code(s): I10 - Essential (primary) hypertension (8) EDEL (obstructive sleep apnea) Current Visit: Yes Status: Chronic Assessment and plan: CPAP at bedtime (9) Pacemaker Current Visit: Yes Status: Chronic Assessment and plan: Presence of PCM, patient reports recent interrogation, continue to monitor (10) Heart failure Current Visit: Yes Status: Chronic Assessment and plan: self reported ECHO from 01/10 noted for EF 55-60%, mildy dilated LV, mild LVH, No Pulm HTN Diastolic function not commented on Not on diuretics at home Continue ASA, BB, Statin, Isosorbide, Losartan, Clonidine Monitor closely Euvolemic at this time Qualifiers: Heart failure type: unspecified Heart failure chronicity: unspecified Qualified Code(s): I50.9 - Heart failure, unspecified - Time Spent With Patient Total time spent is greater than 50% in coordination of care (as documented) at patient's floor/unit and/or counseling patient: Greater than 35 minutes
[2018-04-24] MEDS ORDERED: *HR* Dextrose 50 % in Water (Syg) 50 ML SYRINGE IVP PRN (17:17)
[2018-04-24] MEDS ORDERED: Dextrose Gel 15 GM/37.5 ML TUBE PO PRN ×2 (17:17)
[2018-04-24] MEDS ORDERED: D5% in Water 1,000 ML IVC PRN (17:17)
[2018-04-24 18:02] LABS: C-Reactive Protein 170 mg/L (Less than 10)
[2018-04-24] MEDS: Pyridostigmine Br 60 MG TABLET PO SCH (20:14)
[2018-04-24] MEDS: Piperacillin/Tazobactam 3.375 GM in 0.9 % Sodium Chloride Mini Bag 100 ML IVPB SCH (20:31)
[2018-04-24] MEDS: *HR* OxyCODONE Immed Rel 5 MG TABLET PO PRN (20:32)
[2018-04-24] MEDS: Budesonide/Formoterol 160/4.5 1 PUFF INH IH SCH (20:32)
[2018-04-24] MEDS ORDERED: rOPINIRole 0.25 MG TABLET PO SCH (21:00)
[2018-04-24] MEDS ORDERED: Insulin DETEMIR 100 UNIT/ML X5UNITS SQ SCH (21:00)
[2018-04-24] MEDS ORDERED: Insulin LISPRO 300 UNITS/3 ML VIAL SQ SCH (21:00)
[2018-04-24] MEDS: Gabapentin 400 MG CAPSULE PO SCH (21:51)
--- NOTE | 2018-04-25 00:31 | Podiatry Consult Note ---
Date of Encounter: 04/24/18 Time of Encounter: 11:10 Assessment and Plan (1) Osteomyelitis of left foot Current visit: Yes Status: Acute I had a thorough review with the patient regarding his history and condition, my findings, and his treatment options. We discussed the diabetic foot infection foreign-body in change in the bone on the x-ray and CT scan. He is going to proceed with surgical intervention. He refuses a hallux amputation on the left foot. We discussed doing debridement of bone from the left big toe and an incision and drainage and removal of foreign body of the left foot. Nature of these procedures, risks versus benefits potential complications consequences of his condition and surgery discussed at length. He understood that despite having surgery still have infection present and this could be a staged procedure and he could require multiple trips to the operating room. It was explained that he will have wounds to heal. No guarantees were made as to the outcome of any procedure and it was explained to him that he is at risk for partial foot/limb loss. All of his questions were answered and the informed consent was signed. Patient to be NPO after 7am. Qualifiers: Osteomyelitis type: subacute Qualified Code(s): M86.272 - Subacute osteomyelitis, left ankle and foot (2) Foreign body in left foot with infection Current visit: Yes Status: Acute see above Qualifiers: Encounter type: initial encounter Qualified Code(s): S90.852A - Superficial foreign body, left foot, initial encounter; L08.9 - Local infection of the skin and subcutaneous tissue, unspecified History of Present Illness HPI: Mr. Noland is a 37 year old diabetic male who says 3 days ago at home he stepped on a shark tooth at home and it went through his shoe and into his left foot. He says he thought he got all of it out of his foot after stepping on it but his foot progressively turned red. He denies feeling like he experienced fever, chills, nausea, vomiting, shortness of breath, chest pain. Says that he has had increasing swelling in addition to the redness. He says he saw Dr. Galeano about a month ago and he was doing fine. He said he has an appointment with Dr. Galeano next week. He says nothing is changed with the wound on his left big toe. Patient says that his last A1c was over 9%. Past Med Surg Social Fam HX - Past Medical History Medical history: CHF, diabetes, hyperlipidemia, hypertension Additional medical history: CARDIOMEGALY, EDEL Psychiatric history: anxiety, depression - Past Surgical History Surgical History: pacemaker Additional surgical history: bladder sx,heart cath x6 - Social History Smoking Status: Never smoker Smokeless Tobacco Status: No Alcohol use: none Drug use: none - Family History Father Hx Family Cardiac Disorders: Yes (Heart disease) Hx Family Endocrine Disorder: Yes Mother Hx Family Cardiac Disorders: Yes (heart disease) Hx Family Cancer: Yes (Bladder cancer) Hx Family Endocrine Disorder: Yes (DM) Medications and Allergies Amitriptyline [Elavil] 25 mg PO HS 01/17/17 [History] Aspirin [Lo-Dose Aspirin EC] 81 mg PO DAILY 01/17/17 [History] Carvedilol [Coreg] 6.25 mg PO BIDWM 01/17/17 [History] Codeine/Butalbital/ASA/Caffein [Fiorinal with Codeine #3 Cap] 1 each PO Q8H PRN 01/17/17 [History] Gabapentin [Neurontin] 800 mg PO QID 01/17/17 [History] Ibuprofen [Motrin] 800 mg PO Q6-8H PRN 01/17/17 [History] Isosorbide MONOnitrate (24 HR) [Imdur] 30 mg PO DAILY 01/17/17 [History] Losartan Potassium [Cozaar] 50 mg PO DAILY 01/17/17 [History] Pyridostigmine Br [Mestinon] 60 mg PO Q8H 01/17/17 [History] Ropinirole HCl [Requip] 0.5 mg PO HS 01/17/17 [History] cloNIDine HCl [CloNIDine HCl] 0.1 mg PO BID PRN 01/17/17 [History] Budesonide/Formoterol 160/4.5 [Symbicort 160/4.5] 2 puff IH BIDR 04/11/17 [ History] Metformin HCl [Metformin HCl ER] 1,000 mg PO BID 04/11/17 [History] Sertraline [Zoloft] 25 mg PO DAILY 04/11/17 [History] Albuterol Sulfate [Proair Hfa] 2 puff IH Q4H PRN 07/11/17 [History] Atorvastatin [Lipitor] 40 mg PO HS 07/11/17 [History] Baclofen [Baclofen] 20 mg PO DAILY 07/11/17 [History] Carbidopa/Levodopa [Carbidopa-Levo 10-100 mg Odt] 1 tab PO DAILY 07/11/17 [ History] Lactobacillus Acidophilus [Acidophilus Probiotic] 1 mg PO DAILY 07/11/17 [ History] Liraglutide [Victoza 2-Raul] 1.2 mg IJ DAILY 07/11/17 [History] Nitroglycerin [Nitrostat] 0.4 mg SL Q5M PRN 07/11/17 [History] Insulin Regular, Human [Humulin R U-500 Kwikpen] 80 unit SQ BID 01/06/18 [ History] 3 Allergy/AdvReac Type Severity Reaction Status Date / Time No Known Allergies Allergy Verified 01/06/18 19:53 All Systems Reviewed: The remainder of the systems were reviewed and are negative - Constitutional Constitutional: no fever(s) - Cardiovascular Cardiovascular: no chest pain - Respiratory Respiratory: no cough, no dyspnea - Musculoskeletal Musculoskeletal: numbness Physical Exam - Constitutional Vitals: Temp Pulse Resp BP Pulse Ox 98.2 F 87 14 119/76 98 04/24/18 23:33 04/24/18 23:33 04/24/18 23:33 04/24/18 23:33 04/24/18 23:33 Exam: Well-developed and nourished male in no acute distress Capillary refill time less than 3 seconds 5 digits left foot. Left foot is warm to touch. Moderate edema of the left foot. Erythema of the plantar and dorsal aspect of the left foot. Puncture wound evident plantar submetatarsal 1 left foot. No fluctuance. No purulence expressed. Ulceration sub-hallux is mild erythema measures approximately 0.5 cm x 0.5 cm x 0.3 cm. Surgical scar medial left hallux. Left foot pain with palpation of puncture site and with compression of the hallux. No crepitus with palpation of wound sites or first MTP joint range of motion. Diminished protective sensation. xray-erosion medial aspect of the proximal phalanx distally, new compared to previous xrays. CT- 1. Ulceration along the plantar aspect of the great toe with adjacent soft tissue change most suggestive of cellulitis. No definite well-defined drainable fluid collection identified. 2. Small erosion along the medial aspect of the distal proximal 1st phalanx which has progressed compared with prior CT and is highly suspicious for osteomyelitis given the adjacent soft tissue ulceration. 3. 4 mm radiopaque foreign body along the plantar foot with surrounding subcutaneous gas. - Respiratory Additional comments: nonlabored respirations - Psychiatric Psychiatric exam: Present: normal affect, normal mood Results - Labs Result Diagrams: 04/24/18 14:06 04/24/18 14:06 Labs: Abnormal lab results Hgb 11.8 g/dL (12.9-16.9) L 04/24/18 14:06 Hct 36.0 % (37.5-50.1) L 04/24/18 14:06 MCV 77.6 fL (83.0-100.0) L 04/24/18 14:06 MCH 25.4 pg (28.0-33.3) L 04/24/18 14:06 ESR 90 mm/hr (0-10) H 04/24/18 14:06 Sodium 135 mEq/L (136-145) L 04/24/18 14:06 Creatinine 0.69 mg/dL (0.70-1.30) L 04/24/18 14:06 BUN/Creatinine Ratio 28 (6-26) H 04/24/18 14:06 Glucose 374 mg/dL (70-105) H 04/24/18 14:06 POC Glucose 382 mg/dL (70-99) H 04/24/18 20:48 C-Reactive Protein 170 mg/L (Less than 10) H 04/24/18 14:06 All other labs normal. Consult Discharge Plan - Plan Referrals: Anthony Jenkins DPM [Partnered Physician] -
[2018-04-25] MEDS: Pyridostigmine Br 60 MG TABLET PO SCH ×3 (01:04→17:16)
[2018-04-25 02:03] LABS: Basophils % 0.3 %; Eosinophils # 0.3 K/mcL (0.0-0.6); Hematocrit 36.4 % (37.5-50.1); Hemoglobin 11.4 g/dL (12.9-16.9); Immature Granulocytes % 0.5 % (0-4); Lymphocytes # 1.3 K/mcL (0.6-4.6); Lymphocytes % 15.1 %; Mean Corpuscular HGB Conc 31.3 g/dL (31.6-35.5); Mean Corpuscular Hemoglobin 25.1 pg (28.0-33.3); Mean Platelet Volume 10.8 fL (9.4-12.4); Monocytes # 0.8 K/mcL (0.0-1.3); Monocytes % 9.2 %; Neutrophils # 6.3 K/mcL (1.6-8.9); Platelet Count 185 K/mcL (140-400); Red Blood Count 4.55 M/mcL (4.19-5.50); Segmented Neutrophils % 71.9 %
[2018-04-25 02:10] LABS: BUN/Creatinine Ratio 23 (6-26); Blood Urea Nitrogen 16 mg/dL (6-20); Calcium 8.6 mg/dL (8.6-10.3); Carbon Dioxide 26 mEq/L (23-29); Chloride 104 mEq/L (98-107); Glucose 373 mg/dL (70-105); Osmolality,Calculated 302 (280-300); Potassium 4.1 mEq/L (3.5-5.1); Sodium 138 mEq/L (136-145); eGFR For Non-African Americans > 60 (> 60)
[2018-04-25] MEDS: Piperacillin/Tazobactam 3.375 GM in 0.9 % Sodium Chloride Mini Bag 100 ML IVPB SCH ×3 (06:08→21:26)
[2018-04-25] MEDS: *HR* OxyCODONE Immed Rel 5 MG TABLET PO PRN ×3 (06:10→21:43)
[2018-04-25] MEDS: Budesonide/Formoterol 160/4.5 1 PUFF INH IH SCH ×2 (07:47→21:08)
[2018-04-25] MEDS: Gabapentin 400 MG CAPSULE PO SCH ×4 (08:10→21:25)
[2018-04-25] MEDS: Insulin LISPRO 300 UNITS/3 ML VIAL SQ SCH ×6 (08:11→17:18)
[2018-04-25] MEDS ORDERED: Baclofen 10 MG TABLET PO SCH (09:00)
[2018-04-25] MEDS ORDERED: Aspirin Enteric Coated 81 MG Tablet PO SCH (09:00)
[2018-04-25] MEDS ORDERED: Lactobacillus 1 EACH CAP.SPRINK PO SCH (09:00)
[2018-04-25] MEDS ORDERED: Isosorbide MONOnitrate (24 HR) 30 MG TAB.ER.24H PO SCH (09:00)
--- NOTE | 2018-04-25 12:52 | Internal Med Progress Note ---
Hospitalist Progress Note - Encounter Date of Encounter: 04/25/18 Time of Encounter: 09:00 - Subjective Interval History: Pt denies fever/nausea/vomiting. Still has mild left foot pain. - Exam Vitals: Temp Pulse Resp BP Pulse Ox 98.4 F 78 16 125/76 97 04/25/18 11:02 04/25/18 11:02 04/25/18 11:02 04/25/18 11:02 04/25/18 11:02 Exam: AAO x 3, in NAD HEENT: NC/AT, PERRL Neck: Supple, no LAD Lungs: CTA b/l Heart: S1S2, RRR, has PPM in place Abd: Soft, NT Ext: Left foot wound well dressed Neuro: AAO x3, no focal deficit. - Assessment and Plan (1) DVT prophylaxis Current Visit: Yes Status: Acute Assessment and Plan: SQ heparin (2) Type 2 diabetes mellitus with foot ulcer Current Visit: Yes Status: Chronic Assessment and Plan: Resume basal, prandial and correctonal insulin FS ACHS ADA diet Hold home dose of metformin (3) Chronic ulcer of left foot with fat layer exposed Current Visit: Yes Status: Chronic Assessment and Plan: Associated supra-infection, see above (4) HTN (hypertension) Current Visit: Yes Status: Chronic Assessment and Plan: Continue home medications (5) EDEL (obstructive sleep apnea) Current Visit: Yes Status: Chronic Assessment and Plan: CPAP at bedtime (6) Cellulitis of foot Current Visit: Yes Status: Acute Assessment and Plan: Due to foreign body Left foot CT noted: 1. Ulceration along the plantar aspect of the great toe with adjacent soft tissue change most suggestive of cellulitis. No definite well-defined drainable fluid collection identified. 2. Small erosion along the medial aspect of the distal proximal 1st phalanx which has progressed compared with prior CT and is highly suspicious for osteomyelitis given the adjacent soft tissue ulceration. 3. 4 mm radiopaque foreign body along the plantar foot with surrounding subcutaneous gas. No sepsis features-No fever or chills, no tachycardia, no leukocytosis Blood cultures have been drawn Associated OM Continue vanco and Azael [employer] consulted by ER Consider Infectious disease panel after bone biopsy Will send biomarkers-CRP and ESR Continue pain control Continue blood sugar control Pt said he has Tetanus vaccine in PCP office days ago. (7) Foreign body in left foot with infection Current Visit: Yes Status: Acute Assessment and Plan: as in cellulitis Podiatry saw pt, plan for surgery, details please see podiatry note. (8) Osteomyelitis Current Visit: Yes Status: Acute Assessment and Plan: see above (9) Pacemaker Current Visit: Yes Status: Chronic Assessment and Plan: Presence of PCM, patient reports recent interrogation, continue to monitor (10) Heart failure Current Visit: Yes Status: Chronic Assessment and Plan: self reported ECHO from 01/10 noted for EF 55-60%, mildy dilated LV, mild LVH, No Pulm HTN Diastolic function not commented on Not on diuretics at home Continue ASA, BB, Statin, Isosorbide, Losartan, Clonidine Monitor closely Euvolemic at this time DVT Prophylaxis: heparin SC - Time Spent with Patient Total time spent is greater than 50% in coordination of care (as documented) at patient's floor/unit and/or counseling patient: 40 min Greater than 35 minutes Plan of Care Discussed with: patient Internal Medicine: Result - Labs CBC & Chem 7: 04/25/18 01:20 04/25/18 01:20 Labs: Short CBC 04/25/18 Range/Units 01:20 WBC 8.8 (4.3-11.1) K/mcL Hgb 11.4 L (12.9-16.9) g/dL Hct 36.4 L (37.5-50.1) % Plt Count 185 (140-400) K/mcL Neutrophils # 6.3 (1.6-8.9) K/mcL BMP 04/25/18 01:20 Sodium 138 Potassium 4.1 Chloride 104 Carbon Dioxide 26 BUN 16 Creatinine 0.71 Glucose 373 H Calcium 8.6 - ABG Interpretation ABG results: PT/INR, D-dimer PT 11.9 Seconds (9.4-12.1) 04/24/18 14:06 - Impressions Impressions Foot CT 04/24/18 15:53 IMPRESSION: 1. Ulceration along the plantar aspect of the great toe with adjacent soft tissue change most suggestive of cellulitis. No definite well-defined drainable fluid collection identified. 2. Small erosion along the medial aspect of the distal proximal 1st phalanx which has progressed compared with prior CT and is highly suspicious for osteomyelitis given the adjacent soft tissue ulceration. 3. 4 mm radiopaque foreign body along the plantar foot with surrounding subcutaneous gas. 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 (4) HTN (hypertension) Qualifiers: Hypertension type: essential hypertension Qualified Code(s): I10 - Essential (primary) hypertension (7) Foreign body in left foot with infection Qualifiers: Encounter type: initial encounter Qualified Code(s): S90.852A - Superficial foreign body, left foot, initial encounter; L08.9 - Local infection of the skin and subcutaneous tissue, unspecified (8) Osteomyelitis Qualifiers: Osteomyelitis type: other acute Osteomyelitis location: foot Laterality: left Qualified Code(s): M86.172 - Other acute osteomyelitis, left ankle and foot (10) Heart failure Qualifiers: Heart failure type: unspecified Heart failure chronicity: unspecified Qualified Code(s): I50.9 - Heart failure, unspecified
[2018-04-25] MEDS ORDERED: *HR* Heparin 5,000 UNIT/ML VIAL SQ SCH (14:00)
--- NOTE | 2018-04-25 18:35 | Anesthesia Evaluation PreOp ---
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: Denies Any Significant HX Other Medical History: Diabetes Type II, Other ([place]) Alcohol Use: none Drug use: none Medications and Allergies Amitriptyline [Elavil] 25 mg PO HS 01/17/17 [History] Aspirin [Lo-Dose Aspirin EC] 81 mg PO DAILY 01/17/17 [History] Carvedilol [Coreg] 6.25 mg PO BIDWM 01/17/17 [History] Codeine/Butalbital/ASA/Caffein [Fiorinal with Codeine #3 Cap] 1 each PO Q8H PRN 01/17/17 [History] Gabapentin [Neurontin] 800 mg PO QID 01/17/17 [History] Ibuprofen [Motrin] 800 mg PO Q6-8H PRN 01/17/17 [History] Isosorbide MONOnitrate (24 HR) [Imdur] 30 mg PO DAILY 01/17/17 [History] Losartan Potassium [Cozaar] 50 mg PO DAILY 01/17/17 [History] Pyridostigmine Br [Mestinon] 60 mg PO Q8H 01/17/17 [History] Ropinirole HCl [Requip] 0.5 mg PO HS 01/17/17 [History] cloNIDine HCl [CloNIDine HCl] 0.1 mg PO BID PRN 01/17/17 [History] Budesonide/Formoterol 160/4.5 [Symbicort 160/4.5] 2 puff IH BIDR 04/11/17 [ History] Metformin HCl [Metformin HCl ER] 1,000 mg PO BID 04/11/17 [History] Sertraline [Zoloft] 25 mg PO DAILY 04/11/17 [History] Albuterol Sulfate [Proair Hfa] 2 puff IH Q4H PRN 07/11/17 [History] Atorvastatin [Lipitor] 40 mg PO HS 07/11/17 [History] Baclofen [Baclofen] 20 mg PO DAILY 07/11/17 [History] Carbidopa/Levodopa [Carbidopa-Levo 10-100 mg Odt] 1 tab PO DAILY 07/11/17 [ History] Lactobacillus Acidophilus [Acidophilus Probiotic] 1 mg PO DAILY 07/11/17 [ History] Liraglutide [Victoza 2-Raul] 1.2 mg IJ DAILY 07/11/17 [History] Nitroglycerin [Nitrostat] 0.4 mg SL Q5M PRN 07/11/17 [History] Insulin Regular, Human [Humulin R U-500 Kwikpen] 80 unit SQ BID 01/06/18 [ History] 3 Allergy/AdvReac Type Severity Reaction Status Date / Time No Known Allergies Allergy Verified 01/06/18 19:53 - Meds/Allergy Pre-op Review Medications Reviewed: Yes Allergies Reviewed: Yes Beta Blockers on Current Med List: Yes (Coreg today 171) Anesthesia Results - Labs 04/25/18 01:20 04/25/18 01:20 - Imaging EKG: report reviewed (SR First Degree Block) Additional studies: ECHO 2018 EF 60% Anesthesia Exam Vital Signs/O2 Sat/Glucose, Most Current Temp Pulse Resp BP Pulse Ox 04/25/18 15:14 98.2 F 74 16 139/87 97 Height: 6'7 Weight: 424 lbs NPO (# of Hours): MN Pain Scale: 0 - HEENT Pupil (Motor): Pupils equal, EOMI Mallampati: III Teeth: Normal Oral Opening: Less than or equal to 3 - PROOF TECHNICIAN LOC: Oriented PROOF TECHNICIAN Motor: Normal RUE, Normal LUE, Normal RLE, Normal LLE, Normal Face PROOF TECHNICIAN Sensory: Normal: RUE, LUE, RLE, Face, Deficit: LLE (paresthesia) - Cardiac Rhythm: Regular Murmur: None JVD: No Carotid Bruit: No - Pulmonary Breath Sounds: bilateral Clear Respiratory Effort: Symmetrical Anesthesia Assess/Plan ASA Score: 3 (DM HTN MO EDEL) Modified Richmond Scale for Level of Consciousness: Cooperative, oriented, and tranquil Anesthetic Plan: MAC Monitoring Plan: Standard Monitors Recovery Plan: Other (Discussed MAC, possible GA, agrees to proceed)
--- NOTE | 2018-04-25 18:50 | Operative Note ---
Date of procedure: 04/25/18 Pre-op diagnosis: osteomyelitis left hallux Post-op diagnosis: same Procedure: left hallux debridement of bone, incision and drainage left foot, removal of foreign body Implants: none Complications: none Anesthesia: MAC Local Anesthetics: 1% Lidocaine HCL SubQ (cc) Surgeon: Anthony Jenkins Was there an educational assistant teacher present: No Estimated blood loss (cc): 20 Specimen: left hallux bone micro and path, soft tissue left foot Condition: stable Disposition: PACU Procedure in Detail: Indications: 37-year-old male who is diabetic and comes in after stepping on a fossil shark-tooth at home which went through his shoe and into his foot and has a retained portion of the foreign body in his foot and a diabetic foot infection which has been worsening and more painful over the last few days. His x-ray also shows changes in the left proximal phalanx bone distally. Nature of the above procedures, risks versus benefits potential complications consequences of surgery and his condition and is diabetic foot infection discussed at length. Discussed with patient he is high risk for partial foot/ limb loss. No guarantees were made as to the outcome and he understood that this could be a staged procedure and he could require more surgery. All of his questions have been answered and the informed consent was signed. Patient was taken from the preoperative holding area and operating room placed on the operating room table in the supine position. 1% lidocaine plain was injected into the patient's left foot. The left foot was scrubbed prepped and draped in the usual sterile fashion and the following procedure began Attention was directed to the distal aspect of the patient's left hallux #15 blade was used to make an incision medially and blunt dissection carried out down to the level of the phalanx bone. A distal aspect of the phalanx bone was freed from its soft tissue attachments and sagittal saw used to resect the head of the proximal phalanx. This bone was sent to microbiology and pathology. There was no devitalized tissue present in this area or purulent drainage. The decision was made to close this area and this was done with 2-0 Prolene after flushing the site with normal sterile saline containing vancomycin. Incision and drainage left foot. Removal of left foot foreign body. Attention was then directed plantarly on the foot where a puncture wound was present and a #15 blade was used to make an incision approximately 4 cm in length. Purulent drainage was expressed from the plantar aspect of the patient's foot and devitalized tissue was also present. C-arm was utilized to confirm the area where the foreign body was present. The site was copiously flushed with irrigation containing vancomycin. Upon re-x-raying the area the foreign body was no longer noted to be in the soft tissue under fluoroscopy. Devitalized tissue present was excised. Patient also had some erythema on the dorsal aspect of the foot and a #15 blade was used to make an incision and hemostatic carried out blunt dissection through this area. No purulent drainage was expressed from the dorsal aspect of the foot and it did not appear to communicate with the plantar aspect of the foot which was the site of abscess and foreign body. After flushing the site again with vancomycin mixed with saline no further purulence could be expressed. Devitalized tissue was felt to have been adequately excised. The decision was made to put in a couple retention sutures and the remaining aspect of the wound was packed open with iodoform packing. Adequate hemostasis was present. PRP was made by the perfusion team after they obtained his blood. The PRP was applied to the surgical site. Postoperative bandages included Adaptic, 4 x 4 gauze, Kerlix and an Torres wrap. The patient tolerated the anesthesia and the procedure well escorted the recovery with vital signs stable and vascular status intact all digits of the left foot noted by his capillary refill time to all digits of the left foot. Patient will return to the floor where he will continue antibiotics.
[2018-04-25] MEDS ORDERED: Propofol 500 MG/50 ML INFUS..BTL ONE (19:06)
[2018-04-25] MEDS ORDERED: *HR* Propofol 200 MG/20 ML VIAL IVP ONE (19:42)
--- NOTE | 2018-04-25 20:11 | Anesthesia Evaluation Post Op ---
Date of Encounter: 04/25/18 Time of Encounter: 20:11 - Vital Signs Vital Signs: Vital Signs/O2 Sat, Most Current Temp Pulse Resp BP Pulse Ox 98.2 F 74 16 139/87 97 04/25/18 15:14 04/25/18 15:14 04/25/18 15:14 04/25/18 15:14 04/25/18 15:14 - Lungs Lungs: Clear Ascult./Percussion - Airway Airway: Non-obstructed - Cardiovascular Regular Rate - Mental Status Mental Status: Alert & Oriented, Answers Appropriately - Pain Pain Scale: 0 Pain Scale used: Numeric (1 - 10) - Nausea Vomiting Nausea Vomiting: Not Present - Hydration Hydration: NPO, Has not voided - Discharge PostOp Status: Transfer Patient to floor
[2018-04-25] MEDS ORDERED: [UNRECOGNIZED DRUG - OTHER] PO PRN (20:18)
[2018-04-25] MEDS ORDERED: *HR* Dextrose 50 % in Water (Syg) 50 ML SYRINGE IVP PRN (20:18)
[2018-04-25] MEDS ORDERED: Naloxone 0.4 MG/ML INJ IVP PRN (20:18)
[2018-04-25] MEDS ORDERED: Dextrose Gel 15 GM/37.5 ML TUBE PO PRN ×2 (20:18)
[2018-04-25] MEDS ORDERED: D5% in Water 1,000 ML IVC PRN (20:18)
[2018-04-25] MEDS ORDERED: Insulin DETEMIR 100 UNIT/ML X5UNITS SQ SCH (21:00)
[2018-04-25] MEDS ORDERED: Insulin LISPRO 300 UNITS/3 ML VIAL SQ SCH (21:00)
[2018-04-25] MEDS: *HR* Heparin 5,000 UNIT/ML VIAL SQ SCH (21:24)
[2018-04-25] MEDS: rOPINIRole 0.25 MG TABLET PO SCH (21:26)
[2018-04-26] MEDS: Pyridostigmine Br 60 MG TABLET PO SCH ×3 (00:40→17:24)
[2018-04-26] MEDS: *HR* HYDROcodone/Acet 5/325 mg TABLET PO PRN ×4 (00:40→20:28)
[2018-04-26 01:17] LABS: Basophils % 0.3 %; Eosinophils # 0.2 K/mcL (0.0-0.6); Eosinophils % 2.6 %; Hematocrit 36.8 % (37.5-50.1); Hemoglobin 11.7 g/dL (12.9-16.9); Immature Granulocytes % 0.9 % (0-4); Lymphocytes # 1.1 K/mcL (0.6-4.6); Lymphocytes % 12.5 %; Mean Corpuscular HGB Conc 31.8 g/dL (31.6-35.5); Mean Corpuscular Hemoglobin 25.1 pg (28.0-33.3); Mean Platelet Volume 10.1 fL (9.4-12.4); Monocytes # 0.7 K/mcL (0.0-1.3); Monocytes % 7.7 %; Platelet Count 209 K/mcL (140-400); Red Blood Count 4.66 M/mcL (4.19-5.50); Red Cell Distribution Width 13.8 % (11.5-14.5)
[2018-04-26 01:39] LABS: BUN/Creatinine Ratio 19 (6-26); Blood Urea Nitrogen 11 mg/dL (6-20); Calcium 8.6 mg/dL (8.6-10.3); Carbon Dioxide 26 mEq/L (23-29); Chloride 103 mEq/L (98-107); Glucose 272 mg/dL (70-105); Osmolality,Calculated 291 (280-300); Potassium 3.9 mEq/L (3.5-5.1); Sodium 136 mEq/L (136-145); eGFR For Non-African Americans > 60 (> 60)
[2018-04-26] MEDS: Acetaminophen 325 MG TABLET PO PRN ×2 (03:47→17:24)
[2018-04-26] MEDS: *HR* OxyCODONE Immed Rel 5 MG TABLET PO PRN ×3 (03:47→17:24)
[2018-04-26] MEDS: Piperacillin/Tazobactam 3.375 GM in 0.9 % Sodium Chloride Mini Bag 100 ML IVPB SCH ×3 (05:05→20:14)
[2018-04-26] MEDS: *HR* Heparin 5,000 UNIT/ML VIAL SQ SCH ×3 (05:06→21:19)
[2018-04-26] MEDS: Gabapentin 400 MG CAPSULE PO SCH ×4 (08:33→20:14)
[2018-04-26] MEDS: Isosorbide MONOnitrate (24 HR) 30 MG TAB.ER.24H PO SCH (08:33)
[2018-04-26] MEDS: Baclofen 10 MG TABLET PO SCH (08:34)
[2018-04-26] MEDS: Lactobacillus 1 EACH CAP.SPRINK PO SCH (08:34)
[2018-04-26] MEDS: Insulin LISPRO 300 UNITS/3 ML VIAL SQ SCH ×7 (08:35→20:31)
[2018-04-26] MEDS: Aspirin Enteric Coated 81 MG Tablet PO SCH (08:35)
[2018-04-26] MEDS: Budesonide/Formoterol 160/4.5 1 PUFF INH IH SCH ×2 (10:40→20:01)
--- NOTE | 2018-04-26 13:25 | Podiatry Progress Note ---
Date of Encounter: 04/26/18 Time of Encounter: 11:00 - Assessment and Plan (1) Osteomyelitis of left foot Current Visit: Yes Status: Acute I had a thorough review with the patient regarding his history and condition, my findings, and his treatment options. We discussed the diabetic foot infection foreign-body in change in the bone on the x-ray and CT scan. He is going to proceed with surgical intervention. He refuses a hallux amputation on the left foot. We discussed doing debridement of bone from the left big toe and an incision and drainage and removal of foreign body of the left foot. Nature of these procedures, risks versus benefits potential complications consequences of his condition and surgery discussed at length. He understood that despite having surgery still have infection present and this could be a staged procedure and he could require multiple trips to the operating room. It was explained that he will have wounds to heal. No guarantees were made as to the outcome of any procedure and it was explained to him that he is at risk for partial foot/limb loss. All of his questions were answered and the informed consent was signed. Patient to be NPO after 7am. Qualifiers: Osteomyelitis type: subacute Qualified Code(s): M86.272 - Subacute osteomyelitis, left ankle and foot (2) Foreign body in left foot with infection Current Visit: Yes Status: Acute see above Qualifiers: Encounter type: initial encounter Qualified Code(s): S90.852A - Superficial foreign body, left foot, initial encounter; L08.9 - Local infection of the skin and subcutaneous tissue, unspecified Subjective Interval history: S: 1 day s/p I&D left foot, removal of foreign body and debridement of bone. says he had one fever overnight. says his left foot is causing him pain. O: no purulence expressed today from the plantar foot. sutures are intact over the hallux. there is erythema of the distal foot around the digits and some plantarly. no necrosis of digits. adequate hemostasis. A: diabetic foot infection, osteomyelitis hallux phalanx left foot, s/p above procedures P:flush pack wound done today and should continue daily. dressing change orders placed. discussed with patient surgery findings and treatment plan. c/w IV antibiotics. get infectious disease consult saturday. will continue to follow. Objective - Vital Signs Vital Signs: Vital Signs Temp Pulse Resp BP Pulse Ox 04/26/18 12:17 98.8 F 84 18 124/79 96 04/26/18 10:41 16 93 04/26/18 08:05 99.3 F 91 16 149/86 91 04/26/18 03:24 101.0 F H 90 15 151/90 94 04/25/18 23:30 98.9 F 72 16 148/86 98 04/25/18 22:30 99.5 F 83 16 156/91 97 04/25/18 21:30 98.4 F 74 16 153/102 04/25/18 21:08 16 99 04/25/18 21:00 98.4 F 74 16 155/99 97 04/25/18 20:30 98.1 F 72 16 156/102 96 Intake and Output 04/25/18 04/26/18 04/26/18 23:59 07:59 15:59 Intake Total 100 / 100 600 / 600 Output Total 300 / 300 300 / 300 600 / 600 Balance -200 / -200 300 / 300 -600 / -600 Intake: IV Fluids 100 / 100 600 / 600 Zosyn 3.375 GM In 0.9 % Sodium 100 / 100 100 / 100 Chloride (Mini-Bag +) 100 ML @ 25 mls/hr IVPB Q8H [facility] Rx#: [id number] Vancocin 2,000 MG In 0.9 % 500 / 500 Sodium Chloride 500 ML @ 250 mls/hr IVPB Q12H [facility] Rx#: [id number] Output: Urine 250 / 250 300 / 300 600 / 600 Estimated Blood Loss 50 / 50 Other: Weight 192.4 kg Blood Glucose* 360 Patient Weight 04/26/18 23:59 Weight 192.4 kg - Lab Result Diagrams: 04/26/18 01:06 04/26/18 01:06 Labs: Abnormal lab results Hgb 11.7 g/dL (12.9-16.9) L 04/26/18 01:06 Hct 36.8 % (37.5-50.1) L 04/26/18 01:06 MCV 79.0 fL (83.0-100.0) L 04/26/18 01:06 MCH 25.1 pg (28.0-33.3) L 04/26/18 01:06 ESR 90 mm/hr (0-10) H 04/24/18 14:06 Creatinine 0.58 mg/dL (0.70-1.30) L 04/26/18 01:06 Glucose 272 mg/dL (70-105) H 04/26/18 01:06 POC Glucose 360 mg/dL (70-99) H 04/26/18 12:11 C-Reactive Protein 170 mg/L (Less than 10) H 04/24/18 14:06 Microbiology, Last 48 Hours 04/25/18 19:40 Surgical Biopsy Culture - Preliminary Left Foot 04/25/18 19:40 Surgical Biopsy Culture - Preliminary Left Foot Consult Discharge Plan - Plan Referrals: Anthony Jenkins DPM [Partnered Physician] -
--- NOTE | 2018-04-26 13:33 | Internal Med Progress Note ---
Hospitalist Progress Note - Encounter Date of Encounter: 04/26/18 Time of Encounter: 09:00 - Subjective Interval History: Pt denies fever/nausea/vomiting. S/P I/D surgery. C/o foot pain. - Exam Vitals: Temp Pulse Resp BP Pulse Ox 98.8 F 84 18 124/79 96 04/26/18 12:17 04/26/18 12:17 04/26/18 12:17 04/26/18 12:17 04/26/18 12:17 Exam: AAO x 3, in NAD HEENT: NC/AT, PERRL Neck: Supple, no LAD Lungs: CTA b/l Heart: S1S2, RRR, has PPM in place Abd: Soft, NT Ext: Left foot s/p surgery, well dressed Neuro: AAO x3, no focal deficit. - Assessment and Plan (1) DVT prophylaxis Current Visit: Yes Status: Acute Assessment and Plan: SQ heparin (2) Type 2 diabetes mellitus with foot ulcer Current Visit: Yes Status: Chronic Assessment and Plan: Resume basal, prandial and correctonal insulin FS ACHS ADA diet Hold home dose of metformin Adjust dose per Glu level. (3) Chronic ulcer of left foot with fat layer exposed Current Visit: Yes Status: Chronic Assessment and Plan: Associated supra-infection, see above (4) HTN (hypertension) Current Visit: Yes Status: Chronic Assessment and Plan: Continue home medications (5) EDEL (obstructive sleep apnea) Current Visit: Yes Status: Chronic Assessment and Plan: CPAP at bedtime (6) Cellulitis of foot Current Visit: Yes Status: Acute Assessment and Plan: Due to foreign body Left foot CT noted: 1. Ulceration along the plantar aspect of the great toe with adjacent soft tissue change most suggestive of cellulitis. No definite well-defined drainable fluid collection identified. 2. Small erosion along the medial aspect of the distal proximal 1st phalanx which has progressed compared with prior CT and is highly suspicious for osteomyelitis given the adjacent soft tissue ulceration. 3. 4 mm radiopaque foreign body along the plantar foot with surrounding subcutaneous gas. No sepsis features-No fever or chills, no tachycardia, no leukocytosis Blood cultures have been drawn Associated OM Continue vanco and Zosyn S/P I/D by podiatry Wound culture/biopasy pending High CRP and ESR Continue pain control Continue blood sugar control Pt said he has Tetanus vaccine in PCP office days ago. Consider ID consult on Saturday (7) Foreign body in left foot with infection Current Visit: Yes Status: Acute Assessment and Plan: as in cellulitis Podiatry saw pt, had I/D surgery, details please see podiatry note. (8) Osteomyelitis Current Visit: Yes Status: Acute Assessment and Plan: see above (9) Pacemaker Current Visit: Yes Status: Chronic Assessment and Plan: Presence of PCM, patient reports recent interrogation, continue to monitor (10) Heart failure Current Visit: Yes Status: Chronic Assessment and Plan: self reported ECHO from 01/10 noted for EF 55-60%, mildy dilated LV, mild LVH, No Pulm HTN Diastolic function not commented on Not on diuretics at home Continue ASA, BB, Statin, Isosorbide, Losartan, Clonidine Monitor closely Euvolemic at this time DVT Prophylaxis: heparin SC - Time Spent with Patient Total time spent is greater than 50% in coordination of care (as documented) at patient's floor/unit and/or counseling patient: Greater than 35 minutes Plan of Care Discussed with: patient Internal Medicine: Result - Labs CBC & Chem 7: 04/26/18 01:06 04/26/18 01:06 Labs: Short CBC 04/26/18 Range/Units 01:06 WBC 9.2 (4.3-11.1) K/mcL Hgb 11.7 L (12.9-16.9) g/dL Hct 36.8 L (37.5-50.1) % Plt Count 209 (140-400) K/mcL Neutrophils # 7.0 (1.6-8.9) K/mcL BMP 04/26/18 01:06 Sodium 136 Potassium 3.9 Chloride 103 Carbon Dioxide 26 BUN 11 Creatinine 0.58 L Glucose 272 H Calcium 8.6 - ABG Interpretation ABG results: PT/INR, D-dimer PT 11.9 Seconds (9.4-12.1) 04/24/18 14:06 Consult Discharge Plan - Plan Referrals: Anthony Jenkins DPMarita [Partnered Physician] - (2) Type 2 diabetes mellitus with foot ulcer Qualifiers: 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 insulin 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: with usp use Qualified Code(s) : E11.621 - Type 2 diabetes mellitus with foot ulcer; L97.509 - Non-pressure chronic ulcer of other part of unspecified foot with unspecified severity; Z79.4 - chemistry tutor (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) use of insulin (4) HTN (hypertension) Qualifiers: Hypertension type: essential hypertension Qualified Code(s): I10 - Essential (primary) hypertension (7) Foreign body in left foot with infection Qualifiers: Encounter type: initial encounter Qualified Code(s): S90.852A - Superficial foreign body, left foot, initial encounter; L08.9 - Local infection of the skin and subcutaneous tissue, unspecified (8) Osteomyelitis Qualifiers: Osteomyelitis type: other acute Osteomyelitis location: foot Laterality: left Qualified Code(s): M86.172 - Other acute osteomyelitis, left ankle and foot (10) Heart failure Qualifiers: Heart failure type: unspecified Heart failure chronicity: unspecified Qualified Code(s): I50.9 - Heart failure, unspecified
[2018-04-26] MEDS ORDERED: Nitroglycerin 0.4 MG TAB.SUBL SL PRN (15:04)
[2018-04-26] MEDS: rOPINIRole 0.25 MG TABLET PO SCH (20:14)
[2018-04-26] MEDS ORDERED: Insulin DETEMIR 100 UNIT/ML X5UNITS SQ SCH (21:00)
[2018-04-27] MEDS: Pyridostigmine Br 60 MG TABLET PO SCH ×4 (00:57→23:46)
[2018-04-27] MEDS: *HR* OxyCODONE Immed Rel 5 MG TABLET PO PRN ×4 (01:04→23:46)
[2018-04-27 01:21] LABS: Basophils % 0.3 %; Eosinophils # 0.2 K/mcL (0.0-0.6); Eosinophils % 2.8 %; Hematocrit 36.1 % (37.5-50.1); Hemoglobin 11.4 g/dL (12.9-16.9); Immature Granulocytes % 0.7 % (0-4); Lymphocytes # 1.3 K/mcL (0.6-4.6); Lymphocytes % 17.6 %; Mean Corpuscular HGB Conc 31.6 g/dL (31.6-35.5); Mean Corpuscular Hemoglobin 25.3 pg (28.0-33.3); Mean Corpuscular Volume 80.2 fL (83.0-100.0); Mean Platelet Volume 10.4 fL (9.4-12.4); Monocytes # 0.8 K/mcL (0.0-1.3); Monocytes % 10.6 %; Neutrophils # 5.1 K/mcL (1.6-8.9); Platelet Count 214 K/mcL (140-400); Red Cell Distribution Width 13.7 % (11.5-14.5)
[2018-04-27 01:32] LABS: BUN/Creatinine Ratio 22 (6-26); Blood Urea Nitrogen 15 mg/dL (6-20); Calcium 8.4 mg/dL (8.6-10.3); Carbon Dioxide 29 mEq/L (23-29); Chloride 100 mEq/L (98-107); Glucose 243 mg/dL (70-105); Osmolality,Calculated 289 (280-300); Potassium 3.5 mEq/L (3.5-5.1); Sodium 135 mEq/L (136-145); eGFR For Non-African Americans > 60 (> 60)
[2018-04-27] MEDS: Piperacillin/Tazobactam 3.375 GM in 0.9 % Sodium Chloride Mini Bag 100 ML IVPB SCH ×3 (04:19→21:33)
[2018-04-27] MEDS: *HR* Heparin 5,000 UNIT/ML VIAL SQ SCH ×3 (05:16→21:33)
[2018-04-27] MEDS: Budesonide/Formoterol 160/4.5 1 PUFF INH IH SCH ×2 (08:16→21:11)
[2018-04-27] MEDS: Lactobacillus 1 EACH CAP.SPRINK PO SCH (08:35)
[2018-04-27] MEDS: Aspirin Enteric Coated 81 MG Tablet PO SCH (08:36)
[2018-04-27] MEDS: Isosorbide MONOnitrate (24 HR) 30 MG TAB.ER.24H PO SCH (08:36)
[2018-04-27] MEDS: Gabapentin 400 MG CAPSULE PO SCH ×4 (08:36→19:41)
[2018-04-27] MEDS: Baclofen 10 MG TABLET PO SCH (08:36)
[2018-04-27] MEDS: Insulin LISPRO 300 UNITS/3 ML VIAL SQ SCH ×7 (08:38→21:33)
[2018-04-27 10:14] LABS: Estimated Average Glucose 246 mg/dl; Hemoglobin A1C 10.2 %
--- NOTE | 2018-04-27 11:36 | Internal Med Progress Note ---
Hospitalist Progress Note - Encounter Date of Encounter: 04/27/18 Time of Encounter: 09:00 - Subjective Interval History: Pt denies fever/nausea/vomiting. S/P I/D surgery. C/o foot pain, controlled by pain meds. - Exam Vitals: Temp Pulse Resp BP Pulse Ox 98.0 F 70 16 138/88 96 04/27/18 08:32 04/27/18 08:32 04/27/18 08:32 04/27/18 08:32 04/27/18 08:32 Exam: AAO x 3, in NAD HEENT: NC/AT, PERRL Neck: Supple, no LAD Lungs: CTA b/l Heart: S1S2, RRR, has PPM in place Abd: Soft, NT Ext: Left foot s/p surgery, well dressed Neuro: AAO x3, no focal deficit. - Assessment and Plan (1) DVT prophylaxis Current Visit: Yes Status: Acute Assessment and Plan: SQ heparin (2) Type 2 diabetes mellitus with foot ulcer Current Visit: Yes Status: Chronic Assessment and Plan: Resume basal, prandial and correctonal insulin FS ACHS ADA diet Hold home dose of metformin Adjust dose per Glu level. (3) Chronic ulcer of left foot with fat layer exposed Current Visit: Yes Status: Chronic Assessment and Plan: Associated supra-infection, see above (4) HTN (hypertension) Current Visit: Yes Status: Chronic Assessment and Plan: Continue home medications (5) EDEL (obstructive sleep apnea) Current Visit: Yes Status: Chronic Assessment and Plan: CPAP at bedtime (6) Cellulitis of foot Current Visit: Yes Status: Acute Assessment and Plan: Due to foreign body Left foot CT noted: 1. Ulceration along the plantar aspect of the great toe with adjacent soft tissue change most suggestive of cellulitis. No definite well-defined drainable fluid collection identified. 2. Small erosion along the medial aspect of the distal proximal 1st phalanx which has progressed compared with prior CT and is highly suspicious for osteomyelitis given the adjacent soft tissue ulceration. 3. 4 mm radiopaque foreign body along the plantar foot with surrounding subcutaneous gas. No sepsis features-No fever or chills, no tachycardia, no leukocytosis Associated OM Continue vanco and Zosyn S/P I/D by podiatry Wound culture/biopasy pending High CRP and ESR Continue pain control Continue blood sugar control Pt said he has Tetanus vaccine in PCP office days ago. Consider ID consult on Saturday (7) Foreign body in left foot with infection Current Visit: Yes Status: Acute Assessment and Plan: as in cellulitis Podiatry saw pt, had I/D surgery, details please see podiatry note. (8) Osteomyelitis Current Visit: Yes Status: Acute Assessment and Plan: see above (9) Pacemaker Current Visit: Yes Status: Chronic Assessment and Plan: Presence of PCM, patient reports recent interrogation, continue to monitor (10) Heart failure Current Visit: Yes Status: Chronic Assessment and Plan: self reported ECHO from 01/10 noted for EF 55-60%, mildy dilated LV, mild LVH, No Pulm HTN Diastolic function not commented on Not on diuretics at home Continue ASA, BB, Statin, Isosorbide, Losartan, Clonidine Monitor closely Euvolemic at this time DVT Prophylaxis: heparin SC - Time Spent with Patient Total time spent is greater than 50% in coordination of care (as documented) at patient's floor/unit and/or counseling patient: 40 min Greater than 35 minutes Plan of Care Discussed with: patient Internal Medicine: Result - Labs CBC & Chem 7: 04/27/18 00:54 04/27/18 00:54 Labs: Short CBC 04/27/18 Range/Units 00:54 WBC 7.4 (4.3-11.1) K/mcL Hgb 11.4 L (12.9-16.9) g/dL Hct 36.1 L (37.5-50.1) % Plt Count 214 (140-400) K/mcL Neutrophils # 5.1 (1.6-8.9) K/mcL BMP 04/27/18 00:54 Sodium 135 L Potassium 3.5 Chloride 100 Carbon Dioxide 29 BUN 15 Creatinine 0.69 L Glucose 243 H Calcium 8.4 L - ABG Interpretation ABG results: PT/INR, D-dimer PT 11.9 Seconds (9.4-12.1) 04/24/18 14:06 Consult Discharge Plan - Plan Referrals: Anthony Jenkins, DPMarita [Partnered Physician] - (2) Type 2 diabetes mellitus with foot ulcer Qualifiers: 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: with fdc use Qualified Code(s) : E11.621 - Type 2 diabetes mellitus with foot ulcer; L97.509 - Non-pressure chronic ulcer of other part of unspecified foot with unspecified severity; Z79.4 - assisted (current) use of insulin (4) HTN (hypertension) Qualifiers: Hypertension type: essential hypertension Qualified Code(s): I10 - Essential (primary) hypertension (7) Foreign body in left foot with infection Qualifiers: Encounter type: initial encounter Qualified Code(s): S90.852A - Superficial foreign body, left foot, initial encounter; L08.9 - Local infection of the skin and subcutaneous tissue, unspecified (8) Osteomyelitis Qualifiers: Osteomyelitis type: other acute Osteomyelitis location: foot Laterality: left Qualified Code(s): M86.172 - Other acute osteomyelitis, left ankle and foot (10) Heart failure Qualifiers: Heart failure type: unspecified Heart failure chronicity: unspecified Qualified Code(s): I50.9 - Heart failure, unspecified
[2018-04-27] MEDS: *HR* HYDROcodone/Acet 5/325 mg TABLET PO PRN ×2 (11:38→19:41)
[2018-04-27] MEDS: rOPINIRole 0.25 MG TABLET PO SCH (19:41)
[2018-04-27] MEDS ORDERED: Insulin DETEMIR 100 UNIT/ML X5UNITS SQ SCH (21:00)
[2018-04-28] MEDS: *HR* Heparin 5,000 UNIT/ML VIAL SQ SCH ×3 (05:43→20:42)
[2018-04-28] MEDS: Piperacillin/Tazobactam 3.375 GM in 0.9 % Sodium Chloride Mini Bag 100 ML IVPB SCH ×3 (05:43→20:49)
[2018-04-28] MEDS: *HR* OxyCODONE Immed Rel 5 MG TABLET PO PRN ×3 (05:58→20:43)
[2018-04-28 06:05] LABS: Basophils % 0.4 %; Eosinophils # 0.3 K/mcL (0.0-0.6); Eosinophils % 4.7 %; Hematocrit 34.7 % (37.5-50.1); Hemoglobin 10.8 g/dL (12.9-16.9); Immature Granulocytes % 1.8 % (0-4); Lymphocytes # 1.2 K/mcL (0.6-4.6); Lymphocytes % 21.7 %; Mean Corpuscular HGB Conc 31.1 g/dL (31.6-35.5); Mean Corpuscular Hemoglobin 24.9 pg (28.0-33.3); Mean Platelet Volume 9.7 fL (9.4-12.4); Monocytes # 0.5 K/mcL (0.0-1.3); Monocytes % 9.8 %; Neutrophils # 3.4 K/mcL (1.6-8.9); Platelet Count 225 K/mcL (140-400); Red Blood Count 4.34 M/mcL (4.19-5.50); Red Cell Distribution Width 13.5 % (11.5-14.5); Segmented Neutrophils % 61.6 %
[2018-04-28 06:26] LABS: BUN/Creatinine Ratio 24 (6-26); Blood Urea Nitrogen 13 mg/dL (6-20); Calcium 8.4 mg/dL (8.6-10.3); Carbon Dioxide 29 mEq/L (23-29); Chloride 102 mEq/L (98-107); Glucose 275 mg/dL (70-105); Osmolality,Calculated 290 (280-300); Potassium 3.7 mEq/L (3.5-5.1); Sodium 135 mEq/L (136-145); eGFR For Non-African Americans > 60 (> 60)
[2018-04-28] MEDS: Budesonide/Formoterol 160/4.5 1 PUFF INH IH SCH ×2 (07:45→19:57)
[2018-04-28] MEDS: Aspirin Enteric Coated 81 MG Tablet PO SCH (08:36)
[2018-04-28] MEDS: Lactobacillus 1 EACH CAP.SPRINK PO SCH (08:37)
[2018-04-28] MEDS: Baclofen 10 MG TABLET PO SCH (08:37)
[2018-04-28] MEDS: Isosorbide MONOnitrate (24 HR) 30 MG TAB.ER.24H PO SCH (08:37)
[2018-04-28] MEDS: Gabapentin 400 MG CAPSULE PO SCH ×4 (08:37→20:42)
[2018-04-28] MEDS: Pyridostigmine Br 60 MG TABLET PO SCH ×2 (08:38→17:12)
[2018-04-28] MEDS: Insulin LISPRO 300 UNITS/3 ML VIAL SQ SCH ×7 (08:39→20:42)
[2018-04-28] MEDS: *HR* HYDROcodone/Acet 5/325 mg TABLET PO PRN (08:59)
--- NOTE | 2018-04-28 14:28 | Internal Med Progress Note ---
Hospitalist Progress Note - Encounter Date of Encounter: 04/28/18 Time of Encounter: 09:00 - Subjective Interval History: Pt denies fever/nausea/vomiting. S/P I/D surgery. C/o foot pain, controlled by pain meds. - Exam Vitals: Temp Pulse Resp BP Pulse Ox 98.5 F 77 14 143/77 97 04/28/18 14:00 04/28/18 14:00 04/28/18 14:00 04/28/18 14:00 04/28/18 14:00 Exam: AAO x 3, in NAD HEENT: NC/AT, PERRL Neck: Supple, no LAD Lungs: CTA b/l Heart: S1S2, RRR, has PPM in place Abd: Soft, NT Ext: Left foot s/p surgery, well dressed Neuro: AAO x3, no focal deficit. - Assessment and Plan (1) DVT prophylaxis Current Visit: Yes Status: Acute Assessment and Plan: SQ heparin (2) Type 2 diabetes mellitus with foot ulcer Current Visit: Yes Status: Chronic Assessment and Plan: Resume basal, prandial and correctonal insulin FS ACHS ADA diet Hold home dose of metformin Adjust dose per Glu level. (3) Chronic ulcer of left foot with fat layer exposed Current Visit: Yes Status: Chronic Assessment and Plan: Associated supra-infection, see above (4) HTN (hypertension) Current Visit: Yes Status: Chronic Assessment and Plan: Continue home medications (5) EDEL (obstructive sleep apnea) Current Visit: Yes Status: Chronic Assessment and Plan: CPAP at bedtime (6) Cellulitis of foot Current Visit: Yes Status: Acute Assessment and Plan: Due to foreign body Left foot CT noted: 1. Ulceration along the plantar aspect of the great toe with adjacent soft tissue change most suggestive of cellulitis. No definite well-defined drainable fluid collection identified. 2. Small erosion along the medial aspect of the distal proximal 1st phalanx which has progressed compared with prior CT and is highly suspicious for osteomyelitis given the adjacent soft tissue ulceration. 3. 4 mm radiopaque foreign body along the plantar foot with surrounding subcutaneous gas. No sepsis features-No fever or chills, no tachycardia, no leukocytosis Associated OM Continue vanco and Zosyn S/P I/D by podiatry Wound culture/biopasy pending High CRP and ESR Continue pain control Continue blood sugar control Pt said he has Tetanus vaccine in PCP office days ago. Consult ID for further management. (7) Foreign body in left foot with infection Current Visit: Yes Status: Acute Assessment and Plan: as in cellulitis Podiatry saw pt, had I/D surgery, details please see podiatry note. (8) Osteomyelitis Current Visit: Yes Status: Acute Assessment and Plan: see above (9) Pacemaker Current Visit: Yes Status: Chronic Assessment and Plan: Presence of PCM, patient reports recent interrogation, continue to monitor (10) Heart failure Current Visit: Yes Status: Chronic Assessment and Plan: self reported ECHO from 01/10 noted for EF 55-60%, mildy dilated LV, mild LVH, No Pulm HTN Diastolic function not commented on Not on diuretics at home Continue ASA, BB, Statin, Isosorbide, Losartan, Clonidine Monitor closely Euvolemic at this time - Time Spent with Patient Total time spent is greater than 50% in coordination of care (as documented) at patient's floor/unit and/or counseling patient: Greater than 35 minutes Plan of Care Discussed with: patient Internal Medicine: Result - Labs CBC & Chem 7: 04/28/18 05:39 04/28/18 05:39 Labs: Short CBC 04/28/18 Range/Units 05:39 WBC 5.5 (4.3-11.1) K/mcL Hgb 10.8 L (12.9-16.9) g/dL Hct 34.7 L (37.5-50.1) % Plt Count 225 (140-400) K/mcL Neutrophils # 3.4 (1.6-8.9) K/mcL BMP 04/28/18 05:39 Sodium 135 L Potassium 3.7 Chloride 102 Carbon Dioxide 29 BUN 13 Creatinine 0.55 L Glucose 275 H Calcium 8.4 L - ABG Interpretation ABG results: PT/INR, D-dimer PT 11.9 Seconds (9.4-12.1) 04/24/18 14:06 Consult Discharge Plan - Plan Referrals: Anthony Jenkins DPM [Partnered Physician] - (2) Type 2 diabetes mellitus with foot ulcer Qualifiers: Diabetes 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 moth exterminator insulin use: with moth exterminator use Qualified Code(s) : E11.621 - Type 2 diabetes mellitus with foot ulcer; L97.509 - Non-pressure chronic ulcer of other part of unspecified foot with unspecified severity; Z79.4 - termite treater (current) use of insulin (4) HTN (hypertension) Qualifiers: Hypertension type: essential hypertension Qualified Code(s): I10 - Essential (primary) hypertension (7) Foreign body in left foot with infection Qualifiers: Encounter type: initial encounter Qualified Code(s): S90.852A - Superficial foreign body, left foot, initial encounter; L08.9 - Local infection of the skin and subcutaneous tissue, unspecified (8) Osteomyelitis Qualifiers: Osteomyelitis type: other acute Osteomyelitis location: foot Laterality: left Qualified Code(s): M86.172 - Other acute osteomyelitis, left ankle and foot (10) Heart failure Qualifiers: Heart failure type: unspecified Heart failure chronicity: unspecified Qualified Code(s): I50.9 - Heart failure, unspecified
--- NOTE | 2018-04-28 15:19 | Podiatry Progress Note ---
Date of Encounter: 04/28/18 Time of Encounter: 13:00 - Assessment and Plan (1) Osteomyelitis of left foot Current Visit: Yes Status: Acute POD #3 Left foot ITPJ incision with minimal sanguineous drainage. Well approximated. Left foot distal incision with opening. Packed with 1/4 inch iodaform gauze. Left foot dorsal incision well approximated with no drainage. Erythema noted from the midfoot to the distal aspect of the left foot. Adaptic applied to left great toe ulceration. Covered with 4x4 gauze, kerlex, and secured with SHARAN bandage. ATB coverage to be managed by ID. Appreciate input. Qualifiers: Osteomyelitis type: subacute Qualified Code(s): M86.272 - Subacute osteomyelitis, left ankle and foot (2) Foreign body in left foot with infection Current Visit: Yes Status: Acute ID to follow for ATB treatment. Appreciate input. Qualifiers: Encounter type: subsequent encounter Qualified Code(s): S90.852D - Superficial foreign body, left foot, subsequent encounter; L08.9 - Local infection of the skin and subcutaneous tissue, unspecified Subjective Principal diagnosis: Osteomylitis of left foot Interval history: Patient currently in bed watching television. States has had foot pain but it is under control with pain medication. Denies any fever or chills. States he has only been weight bearing to get up to go to the bathroom. Objective - Vital Signs Vital Signs: Vital Signs Temp Pulse Resp BP Pulse Ox 04/28/18 14:00 98.5 F 77 14 143/77 97 04/28/18 10:49 97.5 F L 78 14 138/87 97 04/28/18 10:26 98.2 F 107 16 126/87 92 04/28/18 07:45 18 95 04/28/18 06:49 97.7 F 72 18 142/81 93 04/28/18 03:23 97.6 F 74 16 142/88 96 04/27/18 21:11 16 96 04/27/18 20:14 98.9 F 76 15 136/84 96 Intake and Output 04/27/18 04/28/18 04/28/18 23:59 07:59 15:59 Intake Total 840 / 840 600 / 600 580 / 580 Output Total 575 / 575 575 / 575 375 / 375 Balance 265 / 265 25 / 25 205 / 205 Intake: IV Fluids 600 / 600 600 / 600 100 / 100 Zosyn 3.375 GM In 0.9 % Sodium 100 / 100 100 / 100 100 / 100 Chloride (Mini-Bag +) 100 ML @ 25 mls/hr IVPB Q8H [facility] Rx#: [id number] Vancocin 1,750 MG In 0.9 % 500 / 500 500 / 500 Sodium Chloride 500 ML @ 333.3 mls/hr IVPB Q8H [facility] Rx#: [id number] Oral 240 / 240 0 / 0 480 / 480 Output: Urine 575 / 575 575 / 575 375 / 375 Other: Meal Dinner Lunch Percent of Meal Consumed 100% 100% # Voids 1 # Bowel Movements 1 Blood Glucose* 217 277 241 - Exam Incision: Present: draining, red, swollen Capillary Refill: less than 3 seconds - Lab Result Diagrams: 04/28/18 05:39 04/28/18 05:39 Labs: Abnormal lab results Hgb 10.8 g/dL (12.9-16.9) L 04/28/18 05:39 Hct 34.7 % (37.5-50.1) L 04/28/18 05:39 MCV 80.0 fL (83.0-100.0) L 04/28/18 05:39 MCH 24.9 pg (28.0-33.3) L 04/28/18 05:39 MCHC 31.1 g/dL (31.6-35.5) L 04/28/18 05:39 ESR 90 mm/hr (0-10) H 04/24/18 14:06 Sodium 135 mEq/L (136-145) L 04/28/18 05:39 Creatinine 0.55 mg/dL (0.70-1.30) L 04/28/18 05:39 Glucose 275 mg/dL (70-105) H 04/28/18 05:39 POC Glucose 277 mg/dL (70-99) H 04/28/18 06:56 Hemoglobin A1c 10.2 % (-5.6) H 04/26/18 01:06 Calcium 8.4 mg/dL (8.6-10.3) L 04/28/18 05:39 C-Reactive Protein 170 mg/L (Less than 10) H 04/24/18 14:06 Microbiology, Last 48 Hours 04/25/18 19:40 Surgical Biopsy Culture - Preliminary Left Foot Morganella [email or web address] morganii Strep agalactiae - (Group B) Gram Negative Bj 04/25/18 19:40 Surgical Biopsy Culture - Preliminary Left Foot Strep agalactiae - (Group B) Staphylococcus aureus Consult Discharge Plan - Plan Referrals: Anthony Jenkins DPM [Partnered Physician] -
--- NOTE | 2018-04-28 20:30 | Infectious Disease Consult ---
Date of Encounter: 04/28/18 Time of Encounter: 20:22 Assessment and Plan (1) Osteomyelitis of foot, left, acute Status: Acute Assessment and plan: Causative organism is MRSA, Morganella morganii, gram-negative bj and group B streptococcus. This is similar to the culture that was obtained from the left great toe on Status post left hallux debridement of bone, incision and drainage left foot, removal of foreign body by Dr. Tarango's on 04/25/2018 Presenting ESR and CRP were 90 and 170 respectively Currently patient on vancomycin and Zosyn. Agree with current management. Once culture finalized we can probably switch him to vancomycin and cefepime for ease of administration if anaerobic cultures are negative Goal vancomycin trough around 15 Monitor labs and for drug toxicity Duration of treatment at least 6 weeks Will need a PICC line placement Monitor kidney function closely Need adequate glucose control; last hemoglobin A1c was 10.2 (2) Morbid obesity with BMI of 45.0-49.9, adult Status: Acute (3) Diabetes mellitus type 2 in obese Status: Acute Assessment and plan: Most recent hemoglobin A1c is 10.2 (4) EDEL (obstructive sleep apnea) Status: Chronic (5) Foreign body in left foot with infection Status: Acute Assessment and plan: Apparently stepped on a sharp tooth on 04/21/2018 Status post removal by podiatry on 04/25/2018 Qualifiers: Encounter type: subsequent encounter Qualified Code(s): S90.852D - Superficial foreign body, left foot, subsequent encounter; L08.9 - Local infection of the skin and subcutaneous tissue, unspecified Infectious Disease HPI - Data of Consult Patient: known to practice within the last 3 years Consult date: 04/28/18 Requesting Physician: Pietro Dickens MD Primary Care Provider: Dominga Ewing CNP - Consult Narrative Reason for consult: osteo History of present illness: Mr. Noland is a 37 year old male Patient is a 37-year-old gentleman who presents to [facility] on 04/24/2018 after stopping on a sharp object. We are consulted today on 04/28/2018 for osteomyelitis. Patient is a 37-year-old man with unfortunate past medical history including diabetes mellitus type 2, morbid obesity, chronic diabetic foot ulcers who was seen by us back in January of this year for chronic osteomyelitis of the left great toe causative organism was group B strep, MRSA, Morganella morganii and Escherichia coli. Patient also had Enterococcus faecalis that. Patient was discharged on IV vancomycin and levofloxacin and was discharged home on he finished 6 weeks of IV antibiotics including vancomycin. Patient finished treatment sometime in mid February. Most recent ESR we had was from 02/10/2018 and it was 21. Patient apparently stepped on a sharp to on Saturday prior to admission. He said having swelling and pain. The pain was unbearable. He denied any fevers or chills. Patient eventually was in so much pain decided to come to the ED for evaluation. Since admission, patient had a MAXIMUM TEMPERATURE of 101.0 Fahrenheit, tachycardia. Resenting WBC was 11,000 with neutrophilic predominance but no bands. Kidney function was normal with a BUN of 19 creatinine 0.69.. Glucose was elevated at 374. Inflammatory markers were elevated with an ESR of 90 CRP of 170. Cultures from the left foot grew staph aureus likely MRSA, group B strep, Morganella Morgagni S: Pansensitive with the exception of Unasyn and cefazolin. CT of the foot on April 24 revealed ulceration along the plantar aspects of the great toe with adjacent soft tissue changes most suggestive of cellulitis. No definite well-defined drainable fluid collection identified. Small erosion along the medial aspect of the distal proximal first phalanx which has progressed compared with the prior CT and is highly suspicious for osteomyelitis given the adjacent soft tissue ulceration. 4 mm radiopaque foreign body along the plantar foot with surrounding subcutaneous gas. Patient was taken to surgery by Dr. Jenkins on 04/25/2018 where he underwent left hallux debridement of bone, incision and drainage of left foot, removal of foreign body. Patient is currently on vancomycin and Zosyn. We were asked to evaluate the patient's make further recommendations. Next Patient is sitting up in bed. Family is at bedside. Denies any headache no chest pain no shortness of breath no cough no nausea or vomiting he is constipated and only had multiple bowel movements admission and this unusual for him. No urinary symptoms no other complaints. Pain is under control but he was a little bit of pain right now because he just came out of the shower. CC: Pietro Dickens MD Past Med Surg Social Fam HX - Past Medical History Medical history: CHF, diabetes, hyperlipidemia, hypertension Additional medical history: CARDIOMEGALY, EDEL Psychiatric history: anxiety, depression - Past Surgical History Surgical History: pacemaker Additional surgical history: bladder sx,heart cath x6 - Social History Smoking Status: Never smoker Smokeless Tobacco Status: No Alcohol use: none Drug use: none - Family History Father Hx Family Cardiac Disorders: Yes (Heart disease) Hx Family Endocrine Disorder: Yes Mother Hx Family Cardiac Disorders: Yes (heart disease) Hx Family Cancer: Yes (Bladder cancer) Hx Family Endocrine Disorder: Yes (DM) Infectious Disease-CN:Meds Amitriptyline [Elavil] 25 mg PO HS 01/17/17 [History] Aspirin [Lo-Dose Aspirin EC] 81 mg PO DAILY 01/17/17 [History] Carvedilol [Coreg] 6.25 mg PO BIDWM 01/17/17 [History] Codeine/Butalbital/ASA/Caffein [Fiorinal with Codeine #3 Cap] 1 each PO Q8H PRN 01/17/17 [History] Gabapentin [Neurontin] 800 mg PO QID 01/17/17 [History] Ibuprofen [Motrin] 800 mg PO Q6-8H PRN 01/17/17 [History] Isosorbide MONOnitrate (24 HR) [Imdur] 30 mg PO DAILY 01/17/17 [History] Losartan Potassium [Cozaar] 50 mg PO DAILY 01/17/17 [History] Pyridostigmine Br [Mestinon] 60 mg PO Q8H 01/17/17 [History] Ropinirole HCl [Requip] 0.5 mg PO HS 01/17/17 [History] cloNIDine HCl [CloNIDine HCl] 0.1 mg PO BID PRN 01/17/17 [History] Budesonide/Formoterol 160/4.5 [Symbicort 160/4.5] 2 puff IH BIDR 04/11/17 [ History] Metformin HCl [Metformin HCl ER] 1,000 mg PO BID 04/11/17 [History] Sertraline [Zoloft] 25 mg PO DAILY 04/11/17 [History] Albuterol Sulfate [Proair Hfa] 2 puff IH Q4H PRN 07/11/17 [History] Atorvastatin [Lipitor] 40 mg PO HS 07/11/17 [History] Baclofen [Baclofen] 20 mg PO DAILY 07/11/17 [History] Carbidopa/Levodopa [Carbidopa-Levo 10-100 mg Odt] 1 tab PO DAILY 07/11/17 [ History] Lactobacillus Acidophilus [Acidophilus Probiotic] 1 mg PO DAILY 07/11/17 [ History] Liraglutide [Victoza 2-Raul] 1.2 mg IJ DAILY 07/11/17 [History] Nitroglycerin [Nitrostat] 0.4 mg SL Q5M PRN 07/11/17 [History] Insulin Regular, Human [Humulin R U-500 Kwikpen] 80 unit SQ BID 01/06/18 [ History] 3 Allergy/AdvReac Type Severity Reaction Status Date / Time No Known Allergies Allergy Verified 01/06/18 19:53 Exam - Constitutional Vitals: Temp Pulse Resp BP Pulse Ox 98.2 F 77 21 135/79 95 04/28/18 20:07 04/28/18 14:00 04/28/18 20:07 04/28/18 20:07 04/28/18 20:07 General appearance: cooperative, no acute distress, no febrile - Head Head exam: Present: atraumatic, normocephalic - Eye Eye exam: Present: EOMI, PERRL, sclera anicteric - ENT ENT exam: Present: mucous membranes moist Additional comments: No oral thrush - Neck Neck exam: Present: full ROM, normal inspection - Respiratory Respiratory exam: Present: CTAB. Absent: wheezes - Cardiovascular Cardiovascular exam: Present: RRR, +S1, +S2 - GI/Abdominal GI/Abdominal exam: Present: normal bowel sounds, soft. Absent: tenderness - Extremities Exam Extremities exam: Present: normal inspection. Absent: joint swelling Additional comments: Left foot surgically wrapped. - Neurological Exam Neurological exam: Present: alert, oriented X3 - Psychiatric Psychiatric exam: Present: normal affect, normal mood - Skin Skin exam: Present: normal color. Absent: rash Infectious Disease CN: Results - Labs CBC & Chem 7: 04/28/18 05:39 04/28/18 05:39 Cultures: Cultures 04/25/18 19:40 Surgical Biopsy Culture - Preliminary Left Foot Morganella [email or web address] morganii Strep agalactiae - (Group B) Gram Negative Bj 04/25/18 19:40 Surgical Biopsy Culture - Preliminary Left Foot Strep agalactiae - (Group B) Staphylococcus aureus Consult Discharge Plan - Plan Referrals: Anthony Jenkins DPM [Partnered Physician] -
[2018-04-28] MEDS: rOPINIRole 0.25 MG TABLET PO SCH (20:42)
[2018-04-28] MEDS ORDERED: Insulin DETEMIR 100 UNIT/ML X5UNITS SQ SCH (21:00)
[2018-04-29] MEDS: Pyridostigmine Br 60 MG TABLET PO SCH ×4 (00:35→23:38)
[2018-04-29] MEDS: cloNIDine HCl 0.1 MG TABLET PO PRN ×2 (00:35→18:24)
[2018-04-29] MEDS: *HR* OxyCODONE Immed Rel 5 MG TABLET PO PRN ×3 (03:25→18:23)
[2018-04-29 04:17] LABS: Basophils % 0.8 %; Eosinophils # 0.2 K/mcL (0.0-0.6); Eosinophils % 4.4 %; Hematocrit 34.3 % (37.5-50.1); Hemoglobin 10.9 g/dL (12.9-16.9); Immature Granulocytes % 3.6 % (0-4); Lymphocytes # 1.1 K/mcL (0.6-4.6); Mean Corpuscular HGB Conc 31.8 g/dL (31.6-35.5); Mean Corpuscular Hemoglobin 25.2 pg (28.0-33.3); Mean Corpuscular Volume 79.4 fL (83.0-100.0); Mean Platelet Volume 9.7 fL (9.4-12.4); Monocytes # 0.4 K/mcL (0.0-1.3); Monocytes % 8.6 %; Platelet Count 260 K/mcL (140-400); Red Blood Count 4.32 M/mcL (4.19-5.50); Red Cell Distribution Width 13.5 % (11.5-14.5); Segmented Neutrophils % 60.6 %
[2018-04-29 04:36] LABS: BUN/Creatinine Ratio 26 (6-26); Blood Urea Nitrogen 16 mg/dL (6-20); Calcium 8.2 mg/dL (8.6-10.3); Carbon Dioxide 26 mEq/L (23-29); Chloride 105 mEq/L (98-107); Glucose 255 mg/dL (70-105); Osmolality,Calculated 296 (280-300); Potassium 3.9 mEq/L (3.5-5.1); Sodium 138 mEq/L (136-145); eGFR For Non-African Americans > 60 (> 60)
[2018-04-29] MEDS: Piperacillin/Tazobactam 3.375 GM in 0.9 % Sodium Chloride Mini Bag 100 ML IVPB SCH ×3 (05:30→21:53)
[2018-04-29] MEDS: *HR* Heparin 5,000 UNIT/ML VIAL SQ SCH ×3 (05:33→21:54)
[2018-04-29] MEDS: Budesonide/Formoterol 160/4.5 1 PUFF INH IH SCH ×2 (07:49→22:03)
[2018-04-29] MEDS: Lactobacillus 1 EACH CAP.SPRINK PO SCH (08:29)
[2018-04-29] MEDS: Isosorbide MONOnitrate (24 HR) 30 MG TAB.ER.24H PO SCH (08:29)
[2018-04-29] MEDS: Aspirin Enteric Coated 81 MG Tablet PO SCH (08:30)
[2018-04-29] MEDS: Gabapentin 400 MG CAPSULE PO SCH ×4 (08:30→21:52)
[2018-04-29] MEDS: Baclofen 10 MG TABLET PO SCH (08:32)
[2018-04-29] MEDS: Insulin LISPRO 300 UNITS/3 ML VIAL SQ SCH ×7 (08:33→21:51)
--- NOTE | 2018-04-29 12:26 | Podiatry Progress Note ---
Date of Encounter: 04/29/18 Time of Encounter: 12:26 - Assessment and Plan (1) Osteomyelitis of left foot Current Visit: Yes Status: Acute POD #4 old dressing removed with moderate amount of serosanguineous drainage Left foot IPJ incision with minimal drainage. Well approximated. Left foot distal incision with opening between sutures 3 and 4. Packed with 1/4 inch iodaform gauze. Left foot dorsal incision well approximated with moderate serosanguineous drainage. Erythema improving to the midfoot. Left hallux with ecchymosis and edema. Adaptic applied to left hallux pedal ulceration. Covered all wounds with 4 x 4 gauze dressing and Kerlix. Secured with Torres bandage. ATB coverage to be managed by ID. Appreciate input. Cultures returned positive MRSA, Morganella, gram-negative tika, group B strep. Ordering diabetic boot to help promote offloading. Qualifiers: Osteomyelitis type: subacute Qualified Code(s): M86.272 - Subacute osteomyelitis, left ankle and foot (2) Foreign body in left foot with infection Current Visit: Yes Status: Acute ID to follow for ATB treatment. Appreciate input. Qualifiers: Encounter type: subsequent encounter Qualified Code(s): S90.852D - Superficial foreign body, left foot, subsequent encounter; L08.9 - Local infection of the skin and subcutaneous tissue, unspecified (3) Type 2 diabetes mellitus with foot ulcer Current Visit: Yes Status: Chronic Hemoglobin A1c 10.2% on 04/26/18. Blood glucose levels and hospital ranging from 160-290. Primary managing. Encouraged patient to keep blood glucose levels under 150 to promote wound healing. Qualifiers: Diabetes mellitus [facility] insulin use: with [facility] use Qualified Code( s): E11.621 - Type 2 diabetes mellitus with foot ulcer; L97.509 - Non-pressure chronic ulcer of other part of unspecified foot with unspecified severity; Z79.4 - longterm (current) use of insulin Subjective Principal diagnosis: Osteomylitis of left foot Interval history: Patient currently in bed watching television. States has had foot pain but it is under control with pain medication. Denies any fever or chills. States he has only been weight bearing to get up to go to the bathroom. Reports yesterday taking a shower and dressing becoming saturated. Changed by nurse. Objective - Vital Signs Vital Signs: Vital Signs Temp Pulse Resp BP Pulse Ox 04/29/18 10:56 97.6 F 65 16 148/79 96 04/29/18 07:51 16 94 04/29/18 07:34 97.7 F 60 16 147/90 96 04/29/18 03:00 97.5 F L 70 20 133/83 94 04/29/18 00:24 98.5 F 75 22 156/102 93 04/28/18 20:07 98.2 F 21 135/79 95 04/28/18 19:57 16 97 04/28/18 14:00 98.5 F 77 14 143/77 97 Intake and Output 04/28/18 04/29/18 04/29/18 23:59 07:59 15:59 Intake Total 600 / 600 700 / 700 220 / 220 Output Total 650 / 650 600 / 600 Balance 600 / 600 50 / 50 -380 / -380 Intake: IV Fluids 600 / 600 600 / 600 100 / 100 Zosyn 3.375 GM In 0.9 % Sodium 100 / 100 100 / 100 100 / 100 Chloride (Mini-Bag +) 100 ML @ 25 mls/hr IVPB Q8H [facility] Rx#: [id number] Vancocin 2,000 MG In 0.9 % 500 / 500 500 / 500 Sodium Chloride 500 ML @ 250 mls/hr IVPB Q8H [facility] Rx#: [id number] Oral 100 / 100 120 / 120 Output: Urine 650 / 650 600 / 600 Other: Blood Glucose* 267 284 295 - Exam Incision: Present: draining, red, swollen Capillary Refill: less than 3 seconds - Lab Result Diagrams: 04/29/18 04:01 04/29/18 04:01 Labs: Abnormal lab results Hgb 10.9 g/dL (12.9-16.9) L 04/29/18 04:01 Hct 34.3 % (37.5-50.1) L 04/29/18 04:01 MCV 79.4 fL (83.0-100.0) L 04/29/18 04:01 MCH 25.2 pg (28.0-33.3) L 04/29/18 04:01 ESR 90 mm/hr (0-10) H 04/24/18 14:06 Creatinine 0.61 mg/dL (0.70-1.30) L 04/29/18 04:01 Glucose 255 mg/dL (70-105) H 04/29/18 04:01 POC Glucose 284 mg/dL (70-99) H 04/29/18 07:40 Hemoglobin A1c 10.2 % (-5.6) H 04/26/18 01:06 Calcium 8.2 mg/dL (8.6-10.3) L 04/29/18 04:01 C-Reactive Protein 170 mg/L (Less than 10) H 04/24/18 14:06 Vancomycin Trough 11 mcg/mL (5-10) H 04/28/18 17:03 Microbiology, Last 48 Hours 04/25/18 19:40 Anaerobic Culture - Preliminary Left Foot At this time, no anaerobic growth is present. The culture will be finalized after 5 days of incubation. 04/25/18 19:40 Anaerobic Culture - Preliminary Left Foot At this time, no anaerobic growth is present. The culture will be finalized after 5 days of incubation. 04/25/18 19:40 Surgical Biopsy Culture - Final Left Foot Strep agalactiae - (Group B) Methicillin Resistant S.aureus 04/25/18 19:40 Surgical Biopsy Culture - Final Left Foot Morganella [email or web address] morganii Strep agalactiae - (Group B) Enterobacter aerogenes Consult Discharge Plan - Plan Referrals: Anthony Jenkins DPM [Partnered Physician] -
--- NOTE | 2018-04-29 13:08 | Internal Med Progress Note ---
Hospitalist Progress Note - Encounter Date of Encounter: 04/29/18 Time of Encounter: 13:06 - Subjective Interval History: Patient seen and examined this morning. No acute overnight events. Lt foot pain improving. No fever, chills, N/V/D. No sob or cp. Denies bowel or bladder complains. - Exam Vitals: Temp Pulse Resp BP Pulse Ox 97.6 F 65 16 148/79 96 04/29/18 10:56 04/29/18 10:56 04/29/18 10:56 04/29/18 10:56 04/29/18 10:56 Exam: Gen: AAO x 3, in NAD HEENT: NC/AT, PERRL Neck: Supple, no LAD Lungs: CTAB, No adventitious lung sound Heart: RRR, S1S2, has PPM Abd: Soft, NT Ext: Left foot s/p surgery, well dressed, Rt foot without swelling, redness or pain. 1+ pedal edema. Neuro: AAO x3, no focal deficit. - Assessment and Plan (1) DVT prophylaxis Current Visit: Yes Status: Acute (2) Type 2 diabetes mellitus with foot ulcer Current Visit: Yes Status: Chronic (3) Chronic ulcer of left foot with fat layer exposed Current Visit: Yes Status: Chronic (4) HTN (hypertension) Current Visit: Yes Status: Chronic (5) EDEL (obstructive sleep apnea) Current Visit: Yes Status: Chronic (6) Cellulitis of foot Current Visit: Yes Status: Acute (7) Foreign body in left foot with infection Current Visit: Yes Status: Acute (8) Osteomyelitis Current Visit: Yes Status: Acute (9) Pacemaker Current Visit: Yes Status: Chronic (10) Heart failure Current Visit: Yes Status: Chronic - Summary of Assessment and Plan Summary of Assessment and Plan: Osteomyelitis of Lt IPJ - Due to foreign body - s/p I/D POD 4 - c/w vanco and Zosyn. Will need 6 wks of abx. Likely DC on Vanc and Cefepime if anerobic cultures negative. Awaiting PICC and placement. - c/w pain control - ID following. DM - c/w basal, prandial and correctonal insulin. Increase levemir to 75. - c/w ACHS and SSI. - Hold home dose of metformin HTN -Continue home medications EDEL - CPAP at bedtime Heart failure - self reported - ECHO from 01/10 noted for EF 55-60%, mildy dilated LV, mild LVH, No Pulm HTN, Diastolic function not commented on - Not on diuretics at home - c/w ASA, BB, Statin, Isosorbide, Losartan, Clonidine - Euvolemic at this time DVT prophylaxis - SQ heparin - Time Spent with Patient Total time spent is greater than 50% in coordination of care (as documented) at patient's floor/unit and/or counseling patient: Internal Medicine: Result - Labs CBC & Chem 7: 04/29/18 04:01 04/29/18 04:01 Labs: Short CBC 04/29/18 Range/Units 04:01 WBC 5.0 (4.3-11.1) K/mcL Hgb 10.9 L (12.9-16.9) g/dL Hct 34.3 L (37.5-50.1) % Plt Count 260 (140-400) K/mcL Neutrophils # 3.0 (1.6-8.9) K/mcL BMP 04/29/18 04:01 Sodium 138 Potassium 3.9 Chloride 105 Carbon Dioxide 26 BUN 16 Creatinine 0.61 L Glucose 255 H Calcium 8.2 L - ABG Interpretation ABG results: PT/INR, D-dimer PT 11.9 Seconds (9.4-12.1) 04/24/18 14:06 Consult Discharge Plan - Plan Referrals: Anthony Jenkins DPM [Partnered Physician] - (2) Type 2 diabetes mellitus with foot ulcer Qualifiers: Diabetes mellitus intermediate school 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 insulin use: with intermediate school teacher use Qualified Code(s) : E11.621 - Type 2 diabetes mellitus with foot ulcer; L97.509 - Non-pressure chronic ulcer of other part of unspecified foot with unspecified severity; Z79.4 - correction (current) use of insulin (4) HTN (hypertension) Qualifiers: Hypertension type: essential hypertension Qualified Code(s): I10 - Essential (primary) hypertension (7) Foreign body in left foot with infection Qualifiers: Encounter type: subsequent encounter Qualified Code(s): S90.852D - Superficial foreign body, left foot, subsequent encounter; L08.9 - Local infection of the skin and subcutaneous tissue, unspecified (8) Osteomyelitis Qualifiers: Osteomyelitis type: other acute Osteomyelitis location: foot Laterality: left Qualified Code(s): M86.172 - Other acute osteomyelitis, left ankle and foot (10) Heart failure Qualifiers: Heart failure type: unspecified Heart failure chronicity: unspecified Qualified Code(s): I50.9 - Heart failure, unspecified
[2018-04-29] MEDS ORDERED: Lidocaine -MPF 1% 5 ML AMPUL INFILT ONE (13:35)
--- NOTE | 2018-04-29 16:06 | Infectious Disease Progress No ---
Date of Encounter: 04/29/18 Time of Encounter: 16:03 - Assessment and Plan (1) Osteomyelitis of foot, left, acute Current Visit: Yes Status: Acute Location: Left foot. Causative organism: MRSA, M. morgannii, Enterobacter, and GBS. Likely secondary to traumatic injury. Status post hallux debridement of bone, incision and drainage of left foot, removal of foreign body by Dr. Jenkins on 04/25/18. ESR 90, CRP 170. Podiatry consulted and following. Wound care and activity restrictions per the podiatry team. Continue Vancomycin IV. Pharmacy to dose. Goal trough ~15. Continue Zosyn 3.375 grams IV Q8H for now. Duration of treatment depends on the clinical picture, but likely 6 weeks of IV antibiotics. Will plan to discharge on Iv Vancomycin and switch to Ertapenem on discharge for ease of doing in the home setting and good coverage of the Enterobacter and Morganella which have high incidence of developing resistance to cephalosporins with long-term administration. Monitor renal function and for drug toxicity and dose-adjust antibiotics. Consult VAT for PICC line placement. Will need CBC, BUN/Cr, ESR, CRP, and Vanc trough weekly. Will need weekly PICC care per protocol. Follow up with ID 05/15/18 at 0840. (2) Foreign body in left foot with infection Current Visit: Yes Status: Acute Apparently stepped on a sharp tooth on 04/21/2018. Status post removal by podiatry on 04/25/2018. Qualifiers: Encounter type: subsequent encounter Qualified Code(s): S90.852D - Superficial foreign body, left foot, subsequent encounter; L08.9 - Local infection of the skin and subcutaneous tissue, unspecified (3) Morbid obesity with BMI of 45.0-49.9, adult Current Visit: Yes Status: Acute (4) EDEL (obstructive sleep apnea) Current Visit: Yes Status: Chronic (5) Diabetes mellitus type 2 in obese Current Visit: Yes Status: Acute Poorly controlled. Recommend aggressive glucose monitoring and control to promote wound healing and prevent reinfection. Advised the patient to call his social services coordinator and get a follow-up appointment after discharge. Management per the primary team. - Subjective Interval history: Patient seen and examined. No acute events noted overnight. Patient states overall he feels better. Denies fevers, chills, or rigors. Denies chest pain, shortness of breath, or cough. Denies nausea, vomiting, or diarrhea. Denies abdominal pain, urinary complaints, or appetite changes. Denies oral thrush or skin rashes. Infect Dis PN-Objective Data - Labs CBC & Chem 7: 04/29/18 04:01 04/29/18 04:01 Labs: Laboratory Results - last 24 hr 04/28/18 04/28/18 04/28/18 11:03 16:11 17:03 WBC RBC Hgb Hct MCV MCH MCHC RDW Plt Count MPV Immature Gran % Seg Neutrophils % Lymphocytes % Monocytes % Eosinophils % Basophils % Neutrophils # Lymphocytes # Monocytes # Eosinophils # Basophils # Sodium Potassium Chloride Carbon Dioxide BUN Creatinine Est GFR ( Amer) Est GFR (Non-Af Amer) BUN/Creatinine Ratio Glucose POC Glucose 241 H 161 H Calculated Osmolality Calcium Vancomycin Trough 11 H 04/28/18 04/29/18 04/29/18 20:11 04:01 04:01 WBC 5.0 RBC 4.32 Hgb 10.9 L Hct 34.3 L MCV 79.4 L MCH 25.2 L MCHC 31.8 RDW 13.5 Plt Count 260 MPV 9.7 Immature Gran % 3.6 Seg Neutrophils % 60.6 Lymphocytes % 22.0 Monocytes % 8.6 Eosinophils % 4.4 Basophils % 0.8 Neutrophils # 3.0 Lymphocytes # 1.1 Monocytes # 0.4 Eosinophils # 0.2 Basophils # 0.0 Sodium 138 Potassium 3.9 Chloride 105 Carbon Dioxide 26 BUN 16 Creatinine 0.61 L Est GFR ( Amer) > 60 Est GFR (Non-Af Amer) > 60 BUN/Creatinine Ratio 26 Glucose 255 H POC Glucose 267 H Calculated Osmolality 296 Calcium 8.2 L Vancomycin Trough 04/29/18 07:40 WBC RBC Hgb Hct MCV MCH MCHC RDW Plt Count MPV Immature Gran % Seg Neutrophils % Lymphocytes % Monocytes % Eosinophils % Basophils % Neutrophils # Lymphocytes # Monocytes # Eosinophils # Basophils # Sodium Potassium Chloride Carbon Dioxide BUN Creatinine Est GFR ( Amer) Est GFR (Non-Af Amer) BUN/Creatinine Ratio Glucose POC Glucose 284 H Calculated Osmolality Calcium Vancomycin Trough Cultures: Cultures 04/25/18 19:40 Anaerobic Culture - Preliminary Left Foot At this time, no anaerobic growth is present. The culture will be finalized after 5 days of incubation. 04/25/18 19:40 Anaerobic Culture - Preliminary Left Foot At this time, no anaerobic growth is present. The culture will be finalized after 5 days of incubation. 04/25/18 19:40 Surgical Biopsy Culture - Final Left Foot Strep agalactiae - (Group B) Methicillin Resistant S.aureus 04/25/18 19:40 Surgical Biopsy Culture - Final Left Foot Morganella [email or web address] morganii Strep agalactiae - (Group B) Enterobacter aerogenes Exam - Constitutional Vitals: Temp Pulse Resp BP Pulse Ox 97.6 F 65 16 148/79 96 04/29/18 10:56 04/29/18 10:56 04/29/18 10:56 04/29/18 10:56 04/29/18 10:56 General appearance: cooperative, morbidly obese, no acute distress - Head Head exam: Present: atraumatic, normal inspection, normocephalic - Eye Eye exam: Present: EOMI, normal appearance, PERRL Pupils: Present: normal accommodation - ENT ENT exam: Present: mucous membranes moist - Neck Neck exam: Present: normal inspection - Respiratory Respiratory exam: Present: CTAB. Absent: decreased breath sounds, rales, respiratory distress, rhonchi, wheezes - Cardiovascular Cardiovascular exam: Present: RRR, +S1, +S2 - GI/Abdominal GI/Abdominal exam: Present: distended (obese), normal bowel sounds, soft. Absent: tenderness - Extremities Exam Extremities exam: Absent: joint swelling, normal inspection (left foot dressing C/D/I.), pedal edema, tenderness - Neurological Exam Neurological exam: Present: alert, oriented X3, no focal deficits - Psychiatric Psychiatric exam: Present: normal affect, normal mood - Skin Skin exam: Present: dry, intact, normal color, warm Consult Discharge Plan - Plan Instructions: Diabetes Mellitus Type 2 in Adults (DC) Additional Instructions: Follow up in wound clinic with Dr. Jenkins. Please have nurse call and set up appointment. Referrals: Anthony Jenkins DPM [Partnered Physician] - 05/08/18 8:30 am Nakia Petty CNP [Advanced Practice Nurse] - 05/15/18 8:40 am Prescriptions: Vancomycin HCl in Dextrose 5 % [Vancomycin 1.5 Gram/250 ml-D5w] 1.5 gm IV Q8HR 42 Days #126 plast..bag Ertapenem [INVanz] 1,000 mg IVPB DAILY 42 Days #42 vial - Attending Attestation I examined this patient and my medical decision-making was reviewed with the Resident Physician. I agree with the documented findings, disposition and treatment plan as described except to the extent set forth below.
[2018-04-29] MEDS ORDERED: Insulin DETEMIR 100 UNIT/ML X5UNITS SQ SCH (21:00)
[2018-04-29] MEDS ORDERED: Psyllium 1 PACKET POWD.PACK PO ONE (21:45)
[2018-04-29] MEDS: rOPINIRole 0.25 MG TABLET PO SCH (21:52)
[2018-04-29] MEDS: *HR* HYDROcodone/Acet 5/325 mg TABLET PO PRN (22:18)
[2018-04-30] MEDS: Piperacillin/Tazobactam 3.375 GM in 0.9 % Sodium Chloride Mini Bag 100 ML IVPB SCH (05:37)
[2018-04-30] MEDS: *HR* Heparin 5,000 UNIT/ML VIAL SQ SCH ×2 (05:38→14:36)
[2018-04-30] MEDS: Budesonide/Formoterol 160/4.5 1 PUFF INH IH SCH (07:41)
[2018-04-30] MEDS: Lactobacillus 1 EACH CAP.SPRINK PO SCH (08:19)
[2018-04-30] MEDS: Gabapentin 400 MG CAPSULE PO SCH ×3 (08:19→17:20)
[2018-04-30] MEDS: Aspirin Enteric Coated 81 MG Tablet PO SCH (08:19)
[2018-04-30] MEDS: Baclofen 10 MG TABLET PO SCH (08:19)
[2018-04-30] MEDS: Isosorbide MONOnitrate (24 HR) 30 MG TAB.ER.24H PO SCH (08:19)
[2018-04-30] MEDS: Pyridostigmine Br 60 MG TABLET PO SCH ×2 (08:19→17:20)
[2018-04-30] MEDS: Insulin LISPRO 300 UNITS/3 ML VIAL SQ SCH ×7 (08:20→17:31)
--- NOTE | 2018-04-30 11:54 | Podiatry Progress Note ---
Date of Encounter: 04/30/18 Time of Encounter: 11:47 - Assessment and Plan (1) Osteomyelitis of left foot Current Visit: Yes Status: Acute POD #5 old dressing removed with moderate amount of serosanguineous drainage Left foot IPJ incision with minimal drainage. Well approximated. Left foot distal pedal incision with opening between sutures 3 and 4. Packed with 1/4 inch iodaform gauze. Left foot dorsal incision well approximated with moderate serosanguineous drainage. Erythema improving to the midfoot. Left hallux decreased ecchymosis and edema. Adaptic applied to left hallux pedal ulceration. Covered all wounds with 4 x 4 gauze dressing and Kerlix. Secured with Torres bandage. ATB coverage to be managed by ID. Appreciate input. Cultures returned positive MRSA, Morganella, gram-negative tika, group B strep. Diabetic boot not currently on patient, but patient reports wearing when ambulating Okay to ME home from podiatry standpoint, ID to manage outpatient antibiotics, follow-up in wound clinic with Dr. Jenkins. Qualifiers: Osteomyelitis type: subacute Qualified Code(s): M86.272 - Subacute osteomyelitis, left ankle and foot (2) Foreign body in left foot with infection Current Visit: Yes Status: Acute ID to follow for ATB treatment. Appreciate input. Qualifiers: Encounter type: subsequent encounter Qualified Code(s): S90.852D - Superficial foreign body, left foot, subsequent encounter; L08.9 - Local infection of the skin and subcutaneous tissue, unspecified (3) Type 2 diabetes mellitus with foot ulcer Current Visit: Yes Status: Chronic Hemoglobin A1c 10.2% on 04/26/18. Blood glucose levels and hospital ranging from 160-290. Primary managing. Encouraged patient to keep blood glucose levels under 150 to promote wound healing. 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 States has had foot pain but it is under control with pain medication. Denies any fever or chills. She reports wearing diabetic boot when ambulating. Denies any overnight complications Objective - Vital Signs Vital Signs: Vital Signs Temp Pulse Resp BP Pulse Ox 04/30/18 07:42 16 95 04/30/18 07:30 98.4 F 66 16 168/96 95 04/30/18 04:21 98.3 F 87 16 144/93 96 04/29/18 22:03 19 98 04/29/18 20:02 97.5 F L 79 16 179/101 97 04/29/18 17:31 169/109 04/29/18 15:49 98.2 F 89 16 173/107 96 Intake and Output 04/29/18 04/30/18 04/30/18 23:59 07:59 15:59 Intake Total 840 / 840 500 / 500 Output Total 950 / 950 Balance 840 / 840 -450 / -450 Intake: IV Fluids 600 / 600 100 / 100 Zosyn 3.375 GM In 0.9 % Sodium 100 / 100 100 / 100 Chloride (Mini-Bag +) 100 ML @ 25 mls/hr IVPB Q8H [facility] Rx#: [id number] Vancocin 2,000 MG In 0.9 % 500 / 500 Sodium Chloride 500 ML @ 250 mls/hr IVPB Q8H [facility] Rx#: [id number] Oral 240 / 240 400 / 400 Output: Urine 950 / 950 Other: Meal Dinner Percent of Meal Consumed 100% # Bowel Movements 0 Weight 193.7 kg Blood Glucose* 137 267 233 Patient Weight 04/30/18 23:59 Weight 193.7 kg - Exam Exam: Constitutional: Alert and oriented 3. Morbidly obese. Vascular: 1/4 DP PT pulses bilaterally, capillary refill time less than 3 seconds to all toes, 1+ pitting edema lower extremity Integumentary: Decreasing edema and erythema, left IPJ suture line well approximated, dorsal suture line well approximated, pedal suture line with opening between #3 and #4 sutures with serosanguineous drainage with 2 cm tunneling packed with iodoform gauze. Right hallux pedal ulcer with beefy red center Neurological: Decreased epicritic and vibratory sensation to bilateral lower extremities Musculoskeletal: 5/5 muscle tone bilaterally, weakness when ambulating Incision: Present: healing, draining Capillary Refill: less than 3 seconds - Lab Result Diagrams: 04/29/18 04:01 04/29/18 04:01 Labs: Abnormal lab results Hgb 10.9 g/dL (12.9-16.9) L 04/29/18 04:01 Hct 34.3 % (37.5-50.1) L 04/29/18 04:01 MCV 79.4 fL (83.0-100.0) L 04/29/18 04:01 MCH 25.2 pg (28.0-33.3) L 04/29/18 04:01 ESR 90 mm/hr (0-10) H 04/24/18 14:06 Creatinine 0.61 mg/dL (0.70-1.30) L 04/29/18 04:01 Glucose 255 mg/dL (70-105) H 04/29/18 04:01 POC Glucose 205 mg/dL (70-99) H 04/29/18 15:53 Hemoglobin A1c 10.2 % (-5.6) H 04/26/18 01:06 Calcium 8.2 mg/dL (8.6-10.3) L 04/29/18 04:01 C-Reactive Protein 170 mg/L (Less than 10) H 04/24/18 14:06 Vancomycin Trough 16 mcg/mL (5-10) H 04/30/18 08:41 Microbiology, Last 48 Hours 04/25/18 19:40 Anaerobic Culture - Preliminary Left Foot At this time, no anaerobic growth is present. The culture will be finalized after 5 days of incubation. 04/25/18 19:40 Anaerobic Culture - Preliminary Left Foot At this time, no anaerobic growth is present. The culture will be finalized after 5 days of incubation. 04/25/18 19:40 Surgical Biopsy Culture - Final Left Foot Strep agalactiae - (Group B) Methicillin Resistant S.aureus 04/25/18 19:40 Surgical Biopsy Culture - Final Left Foot Morganella [email or web address] morganii Strep agalactiae - (Group B) Enterobacter aerogenes Consult Discharge Plan - Plan Instructions: Diabetes Mellitus Type 2 in Adults (DC) Additional Instructions: Follow up in wound clinic with Dr. Jenkins. Please have nurse call and set up appointment. Referrals: Anthony Jenkins DPM [Partnered Physician] - 05/08/18 8:30 am Nakia Petty, [employer] [Advanced Practice Nurse] - 05/15/18 8:40 am Prescriptions: Vancomycin HCl in Dextrose 5 % [Vancomycin 1.5 Gram/250 ml-D5w] 1.5 gm IV Q8HR 42 Days #126 plast..bag Ertapenem [INVanz] 1,000 mg IVPB DAILY 42 Days #42 vial
--- NOTE | 2018-04-30 11:58 | Discharge Summary ---
- NOTES TO OUTPATIENT PROVIDER Notes to Outpatient Provider: Needs weekly blood work for cbc, bun/char belt operator, crp, esr , vanc trough. Will be on antibiotics for 6 weeks. 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 insulin use: with rat exterminator use Qualified Code( s): E11.621 - Type 2 diabetes mellitus with foot ulcer; L97.509 - Non-pressure chronic ulcer of other part of unspecified foot with unspecified severity; Z79.4 - lobsterman (current) use of insulin (3) Chronic ulcer of left foot with fat layer exposed Priority: Primary Status: Chronic (4) HTN (hypertension) Priority: Secondary Status: Chronic Qualifiers: Hypertension type: essential hypertension Qualified Code(s): I10 - Essential (primary) hypertension (5) EDEL (obstructive sleep apnea) Priority: Secondary Status: Chronic (6) Cellulitis of foot Priority: Primary Status: Acute (7) Foreign body in left foot with infection Priority: Primary Status: Acute Qualifiers: Encounter type: subsequent encounter Qualified Code(s): S90.852D - Superficial foreign body, left foot, subsequent encounter; L08.9 - Local infection of the skin and subcutaneous tissue, unspecified (8) Osteomyelitis Priority: Primary Status: Acute Qualifiers: Osteomyelitis type: other acute Osteomyelitis location: foot Laterality: left Qualified Code(s): M86.172 - Other acute osteomyelitis, left ankle and foot (9) Pacemaker Priority: Secondary Status: Chronic (10) Heart failure Priority: Secondary Status: Chronic Qualifiers: Heart failure type: unspecified Heart failure chronicity: unspecified Qualified Code(s): I50.9 - Heart failure, unspecified Hospital course: Mr. Noland is a 37 year old male with PMH of DM, HTN, EDEL, pacemaker, chronic left foot diabetic ulcer, CHF, hyperlipidemia, morbid obesity, depression who presented to the ER with complaints of foreign body(Shark tooth) in the left foot. CT of the left foot showed osteomyelitis and 4 mm foreign body with soft tissue swelling. Patient was started on broad-spectrum antibiotics with vancomycin and Zosyn and infectious disease specialty were consulted. Patient underwent debridement, I/D and foreign body removal from the left hallux. Wound culture grew MRSA, Morganella morgani, Sterp agalactiae. Based on culture and sensitivity, antibiotics were changed to vancomycin and ertapenem on discharge for ease of administration. Patient's diabetes was difficult to control and was managed with insulin both long-acting and short-acting. Patient has history of heart failure however was euvolemic and well compensated during this stay. Patient would be discharged to finish a 6 weeks of antibiotics with the help of home health. Patient would have weekly blood work for CBC, urine, creatinine, ESR, CRP and vanc trough. Patient to follow-up with podiatry with Dr. harris. Patient to wear diabetic boot for off loading. Discharge discussed with: patient, family, nurse, social work, case management - Time Spent with Patient Total time spent providing and/or coordinating discharge services: Greater than 30 minutes - Discharge Medications Prescriptions: Ertapenem [INVanz] 1,000 mg IVPB DAILY 42 Days #42 vial Vancomycin HCl in Dextrose 5 % [Vancomycin 1.5 Gram/250 ml-D5w] 1.5 gm IV Q8HR 42 Days #126 plast..bag Home Medications: Amitriptyline [Elavil] 25 mg PO HS 01/17/17 [History] Aspirin [Lo-Dose Aspirin EC] 81 mg PO DAILY 01/17/17 [History] Carvedilol [Coreg] 6.25 mg PO BIDWM 01/17/17 [History] Codeine/Butalbital/ASA/Caffein [Fiorinal with Codeine #3 Cap] 1 each PO Q8H PRN 01/17/17 [History] Gabapentin [Neurontin] 800 mg PO QID 01/17/17 [History] Ibuprofen [Motrin] 800 mg PO Q6-8H PRN 01/17/17 [History] Isosorbide MONOnitrate (24 HR) [Imdur] 30 mg PO DAILY 01/17/17 [History] Losartan Potassium [Cozaar] 50 mg PO DAILY 01/17/17 [History] Pyridostigmine Br [Mestinon] 60 mg PO Q8H 01/17/17 [History] Ropinirole HCl [Requip] 0.5 mg PO HS 01/17/17 [History] cloNIDine HCl [CloNIDine HCl] 0.1 mg PO BID PRN 01/17/17 [History] Budesonide/Formoterol 160/4.5 [Symbicort 160/4.5] 2 puff IH BIDR 04/11/17 [ History] Metformin HCl [Metformin HCl ER] 1,000 mg PO BID 04/11/17 [History] Sertraline [Zoloft] 25 mg PO DAILY 04/11/17 [History] Albuterol Sulfate [Proair Hfa] 2 puff IH Q4H PRN 07/11/17 [History] Atorvastatin [Lipitor] 40 mg PO HS 07/11/17 [History] Baclofen 20 mg PO DAILY 07/11/17 [History] Carbidopa/Levodopa [Carbidopa-Levo 10-100 mg Odt] 1 tab PO DAILY 07/11/17 [ History] Lactobacillus Acidophilus [Acidophilus Probiotic] 1 mg PO DAILY 07/11/17 [ History] Liraglutide [Victoza 2-Raul] 1.2 mg IJ DAILY 07/11/17 [History] Nitroglycerin [Nitrostat] 0.4 mg SL Q5M PRN 07/11/17 [History] Insulin Regular, Human [Humulin R U-500 Kwikpen] 80 unit SQ BID 01/06/18 [ History] Ertapenem [INVanz] 1,000 mg IVPB DAILY 42 Days #42 vial 04/30/18 [Rx] Vancomycin HCl in Dextrose 5 % [Vancomycin 1.5 Gram/250 ml-D5w] 1.5 gm IV Q8HR 42 Days #126 plast..bag 04/30/18 [Rx] Allergies/Adverse Reactions: 3 Allergy/AdvReac Type Severity Reaction Status Date / Time No Known Allergies Allergy Verified 01/06/18 19:53 Date of admission: 04/25/18 18:28 Primary care physician: Dominga Ewing CNP Consults: 04/28/18 09:38 Consult to Infectious Diseases [CONS] Routine Consulting Provider: Infectious Disease [place] Reason for Consult: DM foot. Foreign body. osteomyelitis Call Completed: Yes 04/29/18 13:35 Consult to Invasive Line Access Team [CONS] Routine Reason for Consult: Picc Line Insertion Line Type: PICC Discharging clinician: Omega Dickson - Constitutional Vitals: Temp Pulse Resp BP Pulse Ox 98.4 F 66 16 168/96 95 04/30/18 07:30 04/30/18 07:30 04/30/18 07:42 04/30/18 07:30 04/30/18 07:42 General appearance: Present: A&O X 3, morbidly obese, pleasant, no acute distress Exam: Gen: AAO x 3, NAD HEENT: NC/AT, PERRL Neck: Supple, no LAD Lungs: CTAB, No adventitious lung sound Heart: RRR, S1S2 Abd: Soft, NT, Obese Ext: Left foot s/p surgery, well dressed, Rt foot without swelling, redness or pain. 1+ pedal edema. Neuro: AAO x3, no focal deficit. - Patient Status Disposition: Home Health Service Condition: Good - Discharge Instructions Follow Up With: Anthony Harris DPM [Partnered Physician] - Nakia Petty CNP [Advanced Practice Nurse] - 05/15/18 8:40 am Additional Instructions: Follow up in wound clinic with Dr. Harris. Please have nurse call and set up appointment. - Diet and Activity Activity: increase activity as tolerated (diabetic boot on ambulation.)
[2018-04-30] MEDS: *HR* OxyCODONE Immed Rel 5 MG TABLET PO PRN ×2 (12:11→18:10)
--- NOTE | 2018-04-30 12:11 | Physician Discharge Referral ---
Home Health/Hosp Referral Info Transfer to: Home Health - Diagnosis (1) DVT prophylaxis Status: Acute (2) Type 2 diabetes mellitus with foot ulcer Status: Chronic (3) Chronic ulcer of left foot with fat layer exposed Status: Chronic (4) HTN (hypertension) Status: Chronic (5) EDEL (obstructive sleep apnea) Status: Chronic (6) Cellulitis of foot Status: Acute (7) Foreign body in left foot with infection Status: Acute (8) Osteomyelitis Status: Acute (9) Pacemaker Status: Chronic (10) Heart failure Status: Chronic - Respiratory Orders Smoking Cessation: Smoking cessation has been advised. For more information, call the [employer] Quit Line at [phone]-REDY-NOW. - Diet/Nutrition Diet/Nutrition Orders: Regular - Activity Activity Orders: Up ad nury (with diabetic boot.) - Services Needed Following services are medically necessary services: Home Infusion - Transfer Medications Prescriptions: Ertapenem [INVanz] 1,000 mg IVPB DAILY 42 Days #42 vial Vancomycin HCl in Dextrose 5 % [Vancomycin 1.5 Gram/250 ml-D5w] 1.5 gm IV Q8HR 42 Days #126 plast..bag Home Medications: Amitriptyline [Elavil] 25 mg PO HS 01/17/17 [History] Aspirin [Lo-Dose Aspirin EC] 81 mg PO DAILY 01/17/17 [History] Carvedilol [Coreg] 6.25 mg PO BIDWM 01/17/17 [History] Codeine/Butalbital/ASA/Caffein [Fiorinal with Codeine #3 Cap] 1 each PO Q8H PRN 01/17/17 [History] Gabapentin [Neurontin] 800 mg PO QID 01/17/17 [History] Ibuprofen [Motrin] 800 mg PO Q6-8H PRN 01/17/17 [History] Isosorbide MONOnitrate (24 HR) [Imdur] 30 mg PO DAILY 01/17/17 [History] Losartan Potassium [Cozaar] 50 mg PO DAILY 01/17/17 [History] Pyridostigmine Br [Mestinon] 60 mg PO Q8H 01/17/17 [History] Ropinirole HCl [Requip] 0.5 mg PO HS 01/17/17 [History] cloNIDine HCl [CloNIDine HCl] 0.1 mg PO BID PRN 01/17/17 [History] Budesonide/Formoterol 160/4.5 [Symbicort 160/4.5] 2 puff IH BIDR 04/11/17 [ History] Metformin HCl [Metformin HCl ER] 1,000 mg PO BID 04/11/17 [History] Sertraline [Zoloft] 25 mg PO DAILY 04/11/17 [History] Albuterol Sulfate [Proair Hfa] 2 puff IH Q4H PRN 07/11/17 [History] Atorvastatin [Lipitor] 40 mg PO HS 07/11/17 [History] Baclofen 20 mg PO DAILY 07/11/17 [History] Carbidopa/Levodopa [Carbidopa-Levo 10-100 mg Odt] 1 tab PO DAILY 07/11/17 [ History] Lactobacillus Acidophilus [Acidophilus Probiotic] 1 mg PO DAILY 07/11/17 [ History] Liraglutide [Victoza 2-Raul] 1.2 mg IJ DAILY 07/11/17 [History] Nitroglycerin [Nitrostat] 0.4 mg SL Q5M PRN 07/11/17 [History] Insulin Regular, Human [Humulin R U-500 Kwikpen] 80 unit SQ BID 01/06/18 [ History] Ertapenem [INVanz] 1,000 mg IVPB DAILY 42 Days #42 vial 04/30/18 [Rx] Vancomycin HCl in Dextrose 5 % [Vancomycin 1.5 Gram/250 ml-D5w] 1.5 gm IV Q8HR 42 Days #126 plast..bag 04/30/18 [Rx] Allergies/Adverse Reactions: 3 Allergy/AdvReac Type Severity Reaction Status Date / Time No Known Allergies Allergy Verified 01/06/18 19:53 Certification: Further, I certify that my clinical findings support that this patient is homebound (i.e. absences from home require considerable and taxing effort and are for medical reasons or adventist services or infrequently or short duration when for other reasons) because: Homebound Reason: Patient requires assistance of a person or device to safely leave home Attestation: My signature below is to certify that this patient is under my care and that I, or nurse practitioner, or a physician's processing assistant working with me, has a face-to -face encounter with this patient.
--- NOTE | 2018-04-30 13:13 | Infectious Disease Progress No ---
Date of Encounter: 04/30/18 Time of Encounter: 13:11 - Assessment and Plan (1) Osteomyelitis of foot, left, acute Current Visit: Yes Status: Acute Location: Left foot. Causative organism: MRSA, M. morgannii, Enterobacter, and GBS. Likely secondary to traumatic injury. Status post hallux debridement of bone, incision and drainage of left foot, removal of foreign body by Dr. Jenkins on 04/25/18. ESR 90, CRP 170. Podiatry consulted and following. Wound care and activity restrictions per the podiatry team. Continue Vancomycin IV. Pharmacy to dose. Goal trough ~15. Continue Ertapenem 1 gram IV daily. Duration of treatment depends on the clinical picture, but likely 6 weeks of IV antibiotics. Will plan to discharge on Iv Vancomycin and Ertapenem on discharge for ease of doing in the home setting and good coverage of the Enterobacter and Morganella which have high incidence of developing resistance to cephalosporins with long-term administration. Monitor renal function and for drug toxicity and dose-adjust antibiotics. PICC line placed. Will need CBC, BUN/Cr, ESR, CRP, and Vanc trough weekly. Will need weekly PICC care per protocol. Follow up with ID 05/15/18 at 0840. (2) Foreign body in left foot with infection Current Visit: Yes Status: Acute Apparently stepped on a sharp tooth on 04/21/2018. Status post removal by podiatry on 04/25/2018. Qualifiers: Encounter type: subsequent encounter Qualified Code(s): S90.852D - Superficial foreign body, left foot, subsequent encounter; L08.9 - Local infection of the skin and subcutaneous tissue, unspecified (3) Morbid obesity with BMI of 45.0-49.9, adult Current Visit: Yes Status: Acute (4) EDEL (obstructive sleep apnea) Current Visit: Yes Status: Chronic (5) Diabetes mellitus type 2 in obese Current Visit: Yes Status: Acute Poorly controlled. Recommend aggressive glucose monitoring and control to promote wound healing and prevent reinfection. Advised the patient to call his director consumer affairs and get a follow-up appointment after discharge. Management per the primary team. - Subjective Interval history: Patient seen and examined. No acute events noted overnight. Patient states overall he feels better. Denies fevers, chills, or rigors. Denies chest pain, shortness of breath, or cough. Denies nausea, vomiting, or diarrhea. Denies abdominal pain, urinary complaints, or appetite changes. Denies oral thrush or skin rashes. Reports pain in the left foot since having dressing changed. Infect Dis PN-Objective Data - Labs CBC & Chem 7: 04/29/18 04:01 04/29/18 04:01 Labs: Laboratory Results - last 24 hr 04/29/18 04/29/18 04/29/18 10:59 15:53 17:00 POC Glucose 295 H 205 H Vancomycin Trough 14 H 04/30/18 08:41 POC Glucose Vancomycin Trough 16 H Cultures: Cultures 04/25/18 19:40 Anaerobic Culture - Preliminary Left Foot At this time, no anaerobic growth is present. The culture will be finalized after 5 days of incubation. 04/25/18 19:40 Anaerobic Culture - Preliminary Left Foot At this time, no anaerobic growth is present. The culture will be finalized after 5 days of incubation. 04/25/18 19:40 Surgical Biopsy Culture - Final Left Foot Strep agalactiae - (Group B) Methicillin Resistant S.aureus 04/25/18 19:40 Surgical Biopsy Culture - Final Left Foot Morganella [email or web address] Strep agalactiae - (Group B) Enterobacter aerogenes Exam - Constitutional Vitals: Temp Pulse Resp BP Pulse Ox 98.4 F 66 16 168/96 95 04/30/18 07:30 04/30/18 07:30 04/30/18 07:42 04/30/18 07:30 04/30/18 07:42 General appearance: cooperative, morbidly obese, no acute distress - Head Head exam: Present: atraumatic, normal inspection, normocephalic - Eye Eye exam: Present: EOMI, normal appearance, PERRL Pupils: Present: normal accommodation - ENT ENT exam: Present: mucous membranes moist - Neck Neck exam: Present: normal inspection - Respiratory Respiratory exam: Present: CTAB. Absent: rales, respiratory distress, rhonchi, wheezes - Cardiovascular Cardiovascular exam: Present: RRR, +S1, +S2 - GI/Abdominal GI/Abdominal exam: Present: distended (obese), normal bowel sounds, soft. Absent: tenderness - Extremities Exam Extremities exam: Absent: normal inspection (Left lower leg/foot noted with walking boot intact.) - Neurological Exam Neurological exam: Present: alert, oriented X3, no focal deficits - Psychiatric Psychiatric exam: Present: normal affect, normal mood - Skin Skin exam: Present: dry, intact, normal color, warm Consult Discharge Plan - Plan Instructions: Diabetes Mellitus Type 2 in Adults (DC) Additional Instructions: Follow up in wound clinic with Dr. Jenkins. Please have nurse call and set up appointment. Referrals: Anthony Jenkins DPM [Partnered Physician] - 05/08/18 8:30 am Nakia Petty CNP [Advanced Practice Nurse] - 05/15/18 8:40 am Prescriptions: Vancomycin HCl in Dextrose 5 % [Vancomycin 1.5 Gram/250 ml-D5w] 1.5 gm IV Q8HR 42 Days #126 plast..bag Ertapenem [INVanz] 1,000 mg IVPB DAILY 42 Days #42 vial - Attending Attestation I examined this patient and my medical decision-making was reviewed with the Resident Physician. I agree with the documented findings, disposition and treatment plan as described except to the extent set forth below.
[2018-04-30 17:18] VITALS: BP 156/73
[2018-04-30] MEDS ORDERED: Aminoglycoside Consult 1 EACH MC ONE (19:25)
[2018-05-01] MEDS ORDERED: Ertapenem 1,000 MG in 0.9 % Sodium Chloride Mini Bag 100 ML IVPB SCH (11:30)
== END 2018-04-30 19:26 | disposition home health service (06) | DRG 317 ==
LOC: 3ANU 13:07 → EMEROOARM 13:07 → 3ANU 16:38 → SUATTDRO 04-25 18:28
PROVIDERS: ADMIT Internal Medicine; ATTEND Internal Medicine

== ENCOUNTER 2020-02-22 13:02 | Observation (INO) ==
[2020-02-22] MEDS ORDERED: Naloxone 0.4 MG/ML INJ IVP PRN (15:48)
[2020-02-22] MEDS ORDERED: Perflutren Lipid Microsphere 1.3 ML in 0.9 % Sodium Chloride 8.7 ML IVP PRN (16:12)
[2020-02-22 17:50] LABS: Adenovirus Not Detected (Not Detect); Bordetella Pertussis Not Detected (Not Detect); Chlamydophila pneumoniae Not Detected (Not Detect); Coronavirus 229E Not Detected (Not Detect); Coronavirus HKU1 Not Detected (Not Detect); Coronavirus NL63 Not Detected (Not Detect); Coronavirus OC43 Not Detected (Not Detect); Human Metapneumovirus Not Detected (Not Detect); Human Rhinovirus/Enterovirus Not Detected (Not Detect); Influenza A Subtype 2009 H1 Not Detected (Not Detect); Influenza B Not Detected (Not Detect); Mycoplasma pneumoniae Not Detected (Not Detect); Parainfluenza Virus 1 Not Detected (Not Detect); Parainfluenza Virus 2 Not Detected (Not Detect); Parainfluenza Virus 3 Not Detected (Not Detect); Parainfluenza Virus 4 Not Detected (Not Detect); Respiratory Syncytial Virus Not Detected (Not Detect)
[2020-02-22] MEDS: rOPINIRole 0.25 MG TABLET PO SCH (19:52)
[2020-02-22] MEDS: carvediloL 6.25 MG TABLET PO SCH (19:53)
[2020-02-22] MEDS: Insulin LISPRO 300 UNITS/3 ML VIAL SQ SCH ×2 (19:53)
[2020-02-22] MEDS ORDERED: Acetaminophen 325 MG TABLET PO ONE (20:33)
[2020-02-23 01:44] LABS: Basophils % 0.7 %; Eosinophils # 0.1 K/mcL (0.0-0.6); Eosinophils % 2.4 %; Hematocrit 45.2 % (37.5-50.1); Immature Granulocytes % 1.9 % (0-4); Lymphocytes # 1.3 K/mcL (0.6-4.6); Lymphocytes % 30.4 %; Mean Corpuscular Volume 80.7 fL (83.0-100.0); Mean Platelet Volume 10.7 fL (9.4-12.4); Monocytes # 0.4 K/mcL (0.0-1.3); Monocytes % 9.4 %; Neutrophils # 2.3 K/mcL (1.6-8.9); Platelet Count 185 K/mcL (140-400); Red Cell Distribution Width 13.8 % (11.5-14.5); Segmented Neutrophils % 55.2 %; White Blood Count 4.2 K/mcL (4.3-11.1)
[2020-02-23 02:03] LABS: BUN/Creatinine Ratio 23 (6-26); Blood Urea Nitrogen 17 mg/dL (6-20); Calcium 8.8 mg/dL (8.6-10.3); Carbon Dioxide 29 mEq/L (23-29); Chloride 102 mEq/L (98-107); Glucose 143 mg/dL (70-105); Osmolality,Calculated 290 (280-300); Potassium 3.5 mEq/L (3.5-5.1); Sodium 138 mEq/L (136-145); eGFR For African Americans > 60 (> 60); eGFR For Non-African Americans > 60 (> 60)
[2020-02-23 02:04] LABS: Troponin I < 0.03 ng/mL (< 0.04)
[2020-02-23] MEDS ORDERED: Regadenoson 0.4 MG/5 ML SYRINGE IVP ONE (06:40)
[2020-02-23 08:42] LABS: Estimated Average Glucose 418 mg/dl
[2020-02-23] MEDS: Aspirin Enteric Coated 81 MG Tablet PO SCH (09:19)
[2020-02-23] MEDS: carvediloL 6.25 MG TABLET PO SCH ×2 (09:19→16:32)
[2020-02-23] MEDS: Insulin LISPRO 300 UNITS/3 ML VIAL SQ SCH ×4 (09:23→20:41)
[2020-02-23] MEDS ORDERED: Nitroglycerin 0.4 MG TAB.SUBL SL PRN (09:51)
[2020-02-23] MEDS ORDERED: cloNIDine HCL 0.1 MG TABLET PO PRN (09:51)
[2020-02-23] MEDS: Gabapentin 400 MG CAPSULE PO SCH ×3 (12:11→19:56)
[2020-02-23] MEDS: *HR* Heparin 5,000 UNIT/ML VIAL SQ SCH (16:32)
[2020-02-23] MEDS: rOPINIRole 0.25 MG TABLET PO SCH (19:56)
[2020-02-23] MEDS: *HR* Insulin Regular U-500 500 UNIT/ML SQ SCH (20:41)
[2020-02-24 05:40] LABS: Hematocrit 45.3 % (37.5-50.1); Hemoglobin 13.7 g/dL (12.9-16.9); Mean Corpuscular HGB Conc 30.2 g/dL (31.6-35.5); Mean Corpuscular Hemoglobin 24.4 pg (28.0-33.3); Mean Corpuscular Volume 80.7 fL (83.0-100.0); Mean Platelet Volume 10.7 fL (9.4-12.4); Platelet Count 177 K/mcL (140-400); Red Blood Count 5.61 M/mcL (4.19-5.50); Red Cell Distribution Width 13.8 % (11.5-14.5); White Blood Count 3.5 K/mcL (4.3-11.1)
[2020-02-24] MEDS: *HR* Heparin 5,000 UNIT/ML VIAL SQ SCH (05:44)
[2020-02-24 06:03] LABS: BUN/Creatinine Ratio 19 (6-26); Blood Urea Nitrogen 18 mg/dL (6-20); Calcium 8.8 mg/dL (8.6-10.3); Carbon Dioxide 25 mEq/L (23-29); Chloride 103 mEq/L (98-107); Glucose 316 mg/dL (70-105); Osmolality,Calculated 296 (280-300); Potassium 3.9 mEq/L (3.5-5.1); Sodium 136 mEq/L (136-145); eGFR For African Americans > 60 (> 60); eGFR For Non-African Americans > 60 (> 60)
[2020-02-24] MEDS: Insulin LISPRO 300 UNITS/3 ML VIAL SQ SCH ×2 (08:39→11:48)
[2020-02-24] MEDS: Gabapentin 400 MG CAPSULE PO SCH ×2 (08:40→12:59)
[2020-02-24] MEDS: carvediloL 6.25 MG TABLET PO SCH (08:40)
[2020-02-24] MEDS: *HR* Insulin Regular U-500 500 UNIT/ML SQ SCH (08:40)
[2020-02-24] MEDS: Aspirin Enteric Coated 81 MG Tablet PO SCH (08:40)
[2020-02-24] MEDS ORDERED: BuPROPion XL (24 HR) 150 MG TABLET PO SCH (09:00)
[2020-02-24] MEDS ORDERED: Cholecalciferol (D-3) 1,000 UNIT (25MCG) TABLET PO SCH (09:00)
[2020-02-24] MEDS ORDERED: Fluticasone Propionate Nasal 50 MCG/SPRAY BOTTLE NS SCH (09:00)
[2020-02-24] MEDS ORDERED: Isosorbide MONOnitrate (24 HR) 30 MG TAB.ER.24H PO SCH (09:00)
[2020-02-24] MEDS ORDERED: Isosorbide MONOnitrate (24 HR) 60 MG TAB.ER.24H PO SCH (11:00)
[2020-02-24 11:38] VITALS: BP 142/89
== END 2020-02-24 13:56 | disposition home or self-care (01) ==
LOC: CDU → SUATTDRO 15:49 → 3BNU 18:57
PROVIDERS: ADMIT Internal Medicine; ATTEND Nurse Practitioner Adult Health

== ENCOUNTER 2021-01-18 18:00 | Inpatient (IN) ==
[2021-01-18] MEDS ORDERED: 0.9 % Sodium Chloride 1,000 ML IVC ONE ×2 (18:14→20:19)
[2021-01-18 18:41] LABS: VBG HCO3 25 mEq/L (21-27); VBG PCO2 43 mmHg (41-51); VBG PH 7.38 pH Units (7.32-7.42); VBG PO2 53 mmHg (25-50)
[2021-01-18 18:42] LABS: Basophils # 0.1 K/mcL (0.0-0.2); Basophils % 0.8 %; Eosinophils # 0.2 K/mcL (0.0-0.6); Eosinophils % 2.8 %; Hemoglobin 12.3 g/dL (12.9-16.9); Immature Granulocytes % 0.8 % (0-4); Lymphocytes # 1.7 K/mcL (0.6-4.6); Lymphocytes % 23.8 %; Mean Corpuscular Hemoglobin 24.6 pg (28.0-33.3); Mean Platelet Volume 10.6 fL (9.4-12.4); Monocytes # 0.6 K/mcL (0.0-1.3); Monocytes % 8.9 %; Neutrophils # 4.4 K/mcL (1.6-8.9); Platelet Count 302 K/mcL (140-400); Red Cell Distribution Width 13.7 % (11.5-14.5); Segmented Neutrophils % 62.9 %; White Blood Count 7.1 K/mcL (4.3-11.1)
[2021-01-18 19:16] LABS: Alanine Aminotransferase 25 Units/L (7-52); Albumin 3.8 g/dL (3.5-5.7); Alkaline Phosphatase 150 Units/L (34-104); Aspartate Amino Transferase 15 Units/L (13-39); BUN/Creatinine Ratio 27 (6-26); Bilirubin,Direct 0.1 mg/dL (0.0-0.2); Bilirubin,Indirect 0.4 mg/dL (0.0-1.0); Bilirubin,Total 0.5 mg/dL (0.3-1.0); Blood Urea Nitrogen 31 mg/dL (6-20); Calcium 9.2 mg/dL (8.6-10.3); Carbon Dioxide 25 mEq/L (23-29); Chloride 88 mEq/L (98-107); Globulin 3.8 g/dL (2.4-3.5); Glucose 790 mg/dL (70-105); Magnesium 1.7 mg/dL (1.6-2.6); Osmolality,Calculated 305 (280-300); Phosphorous 4.4 mg/dL (2.7-4.5); Potassium 4.7 mEq/L (3.5-5.1); Sodium 125 mEq/L (136-145); Total Protein 7.6 g/dL (6.4-8.9); Troponin I < 0.03 ng/mL (< 0.04); eGFR For African Americans > 60 (> 60); eGFR For Non-African Americans > 60 (> 60)
[2021-01-18 19:37] LABS: C-Reactive Protein 30 mg/L (Less than 10)
[2021-01-18 19:45] LABS: Bilirubin,Urine Negative (Negative); Blood,Urine Negative (Negative); Clarity,Urine Clear (Clear); Color,Urine Colorless (Yellow); Glucose,Urine (UA) >=1000 mg/dL (Normal); Ketones,Urine Negative (Negative); Leukocyte Esterase,Urine Negative (Negative); Nitrite,Urine Negative (Negative); Protein,Urine Negative (Neg-Trace); RBC,Urine 0-3 per hpf (0-3); Urobilinogen,Urine Normal (Normal)
[2021-01-18 19:46] LABS: INR 1.1; Prothrombin Time 12.6 Seconds (9.4-12.1)
[2021-01-18 20:27] LABS: Adenovirus Not Detected (Not Detect); Coronavirus 229E Not Detected (Not Detect); Coronavirus HKU1 Not Detected (Not Detect); Coronavirus NL63 Not Detected (Not Detect); Coronavirus OC43 Not Detected (Not Detect); Human Rhinovirus/Enterovirus DETECTED (Not Detect)
[2021-01-18 20:28] LABS: Bordetella Pertussis Not Detected (Not Detect); Chlamydophila pneumoniae Not Detected (Not Detect); Human Metapneumovirus Not Detected (Not Detect); Influenza A Subtype 2009 H1 Not Detected (Not Detect); Influenza B Not Detected (Not Detect); Mycoplasma pneumoniae Not Detected (Not Detect); Parainfluenza Virus 1 Not Detected (Not Detect); Parainfluenza Virus 2 Not Detected (Not Detect); Parainfluenza Virus 3 Not Detected (Not Detect); Parainfluenza Virus 4 Not Detected (Not Detect); Respiratory Syncytial Virus Not Detected (Not Detect); SARS-CoV-2 Not Detected (Not Detect)
[2021-01-18] MEDS ORDERED: Insulin Regular, Human 100 UNIT/ML SUBQ ONE (20:32)
[2021-01-18] MEDS ORDERED: Acetaminophen 325 MG TABLET PO PRN (20:34)
[2021-01-18] MEDS ORDERED: Ondansetron 4 MG/2 ML VIAL IVP PRN (20:34)
[2021-01-18] MEDS ORDERED: *HR* Promethazine 25 MG/ML VIAL IM PRN (20:34)
[2021-01-18] MEDS ORDERED: Naloxone 0.4 MG/ML INJ IVP PRN (20:34)
[2021-01-18] MEDS ORDERED: Dextrose Gel 15 GM/37.5 ML TUBE PO PRN ×2 (20:37)
[2021-01-18] MEDS ORDERED: Vancomycin 2,000 MG/520 ML IV.SOLN IVPB ONE (20:37)
[2021-01-18] MEDS ORDERED: D5% in Water 1,000 ML IVC PRN (20:37)
[2021-01-18] MEDS ORDERED: Piperacillin/Tazobactam 3.375 GM in 0.9 % Sodium Chloride Mini Bag 100 ML IVPB ONE (20:37)
[2021-01-18] MEDS ORDERED: *HR* Dextrose 50 % in Water (Vial) 50 ML VIAL IVP PRN (20:42)
[2021-01-19] MEDS: Ringers Solution, Lactated 1,000 ML IVC SCH ×2 (00:33→04:33)
[2021-01-19 00:37] LABS: Basophils % 0.4 %; Eosinophils # 0.3 K/mcL (0.0-0.6); Eosinophils % 3.7 %; Hematocrit 37.5 % (37.5-50.1); Hemoglobin 11.9 g/dL (12.9-16.9); Lymphocytes # 1.8 K/mcL (0.6-4.6); Lymphocytes % 27.1 %; Mean Corpuscular HGB Conc 31.7 g/dL (31.6-35.5); Mean Corpuscular Hemoglobin 24.8 pg (28.0-33.3); Mean Corpuscular Volume 78.3 fL (83.0-100.0); Mean Platelet Volume 9.9 fL (9.4-12.4); Monocytes # 0.5 K/mcL (0.0-1.3); Monocytes % 7.5 %; Neutrophils # 4.1 K/mcL (1.6-8.9); Platelet Count 278 K/mcL (140-400); Red Blood Count 4.79 M/mcL (4.19-5.50); Red Cell Distribution Width 13.7 % (11.5-14.5); Segmented Neutrophils % 60.3 %; White Blood Count 6.8 K/mcL (4.3-11.1)
[2021-01-19 00:55] LABS: INR 1.1; Prothrombin Time 12.7 Seconds (9.4-12.1)
[2021-01-19 01:07] LABS: BUN/Creatinine Ratio 31 (6-26); Blood Urea Nitrogen 29 mg/dL (6-20); Calcium 9.1 mg/dL (8.6-10.3); Carbon Dioxide 28 mEq/L (23-29); Chloride 98 mEq/L (98-107); Chol/HDL Ratio 5.2 (0-4.9); Cholesterol 119 mg/dL (< 200); Glucose 270 mg/dL (70-105); HDL Cholesterol 23 mg/dL (40-59); LDL Cholesterol,Calculated 31 mg/dL (< 100); Magnesium 1.7 mg/dL (1.6-2.6); Osmolality,Calculated 297 (280-300); Potassium 3.6 mEq/L (3.5-5.1); Sodium 136 mEq/L (136-145); Triglycerides 325 mg/dL (< 150); eGFR For African Americans > 60 (> 60); eGFR For Non-African Americans > 60 (> 60)
[2021-01-19] MEDS: *HR* HYDROcodone/Acet 5/325 mg TABLET PO PRN ×2 (07:40→19:00)
[2021-01-19] MEDS: Aspirin Enteric Coated 81 MG Tablet PO SCH (07:40)
[2021-01-19] MEDS: *HR* Insulin Regular U-500 500 UNIT/ML SUBQ SCH ×3 (07:41→17:46)
[2021-01-19] MEDS: Piperacillin/Tazobactam 3.375 GM in 0.9 % Sodium Chloride Mini Bag 100 ML IVPB SCH ×3 (07:41→23:13)
[2021-01-19] MEDS: Vancomycin 2,000 MG/520 ML IV.SOLN IVPB SCH ×2 (10:46→21:16)
[2021-01-19 11:46] LABS: Acinetobacter baumannii by PCR Not Detected (Not Detect); Candida albicans by PCR Not Detected (Not Detect); Candida glabrata by PCR Not Detected (Not Detect); Candida krusei by PCR Not Detected (Not Detect); Candida parapsilosis by PCR Not Detected (Not Detect); Candida tropicalis by PCR Not Detected (Not Detect); Enterobacter cloacae Cmplx PCR Not Detected (Not Detect); Enterobacteriaceae by PCR Not Detected (Not Detect); Enterococcus by PCR DETECTED (Not Detect); Escherichia coli by PCR Not Detected (Not Detect); Klebsiella oxytoca by PCR Not Detected (Not Detect); Klebsiella pneumoniae by PCR Not Detected (Not Detect); Proteus by PCR Not Detected (Not Detect); Pseudomonas aeruginosa by PCR Not Detected (Not Detect); Serratia marcescens by PCR Not Detected (Not Detect); Staphylococcus aureus by PCR Not Detected (Not Detect); Staphylococcus by PCR Not Detected (Not Detect); Streptococcus agalactiae(B)PCR Not Detected (Not Detect); Streptococcus by PCR Not Detected (Not Detect); Streptococcus pneumoniae PCR Not Detected (Not Detect); Streptococcus pyogenes (A) PCR Not Detected (Not Detect); vanA/B Vancomycin-Resist Genes Not Detected (Not Detect)
[2021-01-19 12:27] LABS: Estimated Average Glucose 390 mg/dl; Hemoglobin A1C 15.2 %
[2021-01-19] MEDS ORDERED: Nitroglycerin 0.4 MG TAB.SUBL SL PRN (13:19)
[2021-01-19] MEDS: *HR* OxyCODONE Immed Rel 5 MG TABLET PO PRN ×2 (14:53→22:48)
[2021-01-19] MEDS ORDERED: Perflutren Lipid Microsphere 1.3 ML in 0.9 % Sodium Chloride 8.7 ML IVP PRN (16:41)
[2021-01-19] MEDS: carvediloL 6.25 MG TABLET PO SCH (17:46)
[2021-01-19] MEDS: rOPINIRole 0.25 MG TABLET PO SCH (21:16)
[2021-01-19] MEDS: Pregabalin 75 MG CAPSULE PO SCH (21:16)
[2021-01-20] MEDS: *HR* Enoxaparin 40 MG/0.4 ML SYRINGE SQ SCH (05:18)
[2021-01-20] MEDS: *HR* HYDROcodone/Acet 5/325 mg TABLET PO PRN ×3 (05:18→21:24)
[2021-01-20 06:45] LABS: Hematocrit 38.7 % (37.5-50.1); Hemoglobin 12.5 g/dL (12.9-16.9); Mean Corpuscular HGB Conc 32.3 g/dL (31.6-35.5); Mean Corpuscular Hemoglobin 25.3 pg (28.0-33.3); Mean Corpuscular Volume 78.3 fL (83.0-100.0); Mean Platelet Volume 10.3 fL (9.4-12.4); Platelet Count 272 K/mcL (140-400); Red Blood Count 4.94 M/mcL (4.19-5.50); Red Cell Distribution Width 13.9 % (11.5-14.5); White Blood Count 6.3 K/mcL (4.3-11.1)
[2021-01-20 06:54] LABS: BUN/Creatinine Ratio 27 (6-26); Blood Urea Nitrogen 21 mg/dL (6-20); Calcium 8.7 mg/dL (8.6-10.3); Carbon Dioxide 27 mEq/L (23-29); Chloride 103 mEq/L (98-107); Glucose 84 mg/dL (70-105); Osmolality,Calculated 288 (280-300); Potassium 3.8 mEq/L (3.5-5.1); Sodium 138 mEq/L (136-145); eGFR For African Americans > 60 (> 60); eGFR For Non-African Americans > 60 (> 60)
[2021-01-20] MEDS: Losartan/HCTZ 50-12.5 TABLET PO SCH (07:48)
[2021-01-20] MEDS: *HR* OxyCODONE Immed Rel 5 MG TABLET PO PRN (07:49)
[2021-01-20] MEDS: Piperacillin/Tazobactam 3.375 GM in 0.9 % Sodium Chloride Mini Bag 100 ML IVPB SCH ×2 (07:49→15:21)
[2021-01-20] MEDS: carvediloL 6.25 MG TABLET PO SCH ×2 (07:49→16:31)
[2021-01-20] MEDS: Venlafaxine XR (24 HR) 75 MG CAP.ER.24H PO SCH (07:49)
[2021-01-20] MEDS: Isosorbide MONOnitrate (24 HR) 30 MG TAB.ER.24H PO SCH (07:49)
[2021-01-20] MEDS: Aspirin Enteric Coated 81 MG Tablet PO SCH (07:49)
[2021-01-20] MEDS: lamoTRIgine 25 MG TABLET PO SCH (07:49)
[2021-01-20] MEDS: Pregabalin 75 MG CAPSULE PO SCH ×2 (07:49→21:24)
[2021-01-20] MEDS: *HR* Insulin Regular U-500 500 UNIT/ML SUBQ SCH ×3 (07:49→16:31)
[2021-01-20] MEDS: Vancomycin 1,750 MG/517.5 ML IV.SOLN IVPB SCH ×2 (11:39→22:31)
[2021-01-20] MEDS: rOPINIRole 0.25 MG TABLET PO SCH (21:24)
[2021-01-21] MEDS: Piperacillin/Tazobactam 3.375 GM in 0.9 % Sodium Chloride Mini Bag 100 ML IVPB SCH ×3 (02:09→18:01)
[2021-01-21 02:43] LABS: Basophils % 0.6 %; Eosinophils # 0.2 K/mcL (0.0-0.6); Eosinophils % 4.5 %; Hematocrit 39.3 % (37.5-50.1); Hemoglobin 12.2 g/dL (12.9-16.9); Immature Granulocytes % 1.2 % (0-4); Lymphocytes # 1.6 K/mcL (0.6-4.6); Lymphocytes % 33.5 %; Mean Corpuscular Hemoglobin 25.1 pg (28.0-33.3); Mean Corpuscular Volume 80.7 fL (83.0-100.0); Mean Platelet Volume 9.7 fL (9.4-12.4); Monocytes # 0.4 K/mcL (0.0-1.3); Monocytes % 8.5 %; Neutrophils # 2.5 K/mcL (1.6-8.9); Platelet Count 281 K/mcL (140-400); Red Blood Count 4.87 M/mcL (4.19-5.50); Red Cell Distribution Width 14.1 % (11.5-14.5); Segmented Neutrophils % 51.7 %; White Blood Count 4.8 K/mcL (4.3-11.1)
[2021-01-21 03:04] LABS: BUN/Creatinine Ratio 22 (6-26); Blood Urea Nitrogen 18 mg/dL (6-20); Calcium 8.8 mg/dL (8.6-10.3); Carbon Dioxide 29 mEq/L (23-29); Chloride 102 mEq/L (98-107); Glucose 194 mg/dL (70-105); Osmolality,Calculated 291 (280-300); Potassium 3.8 mEq/L (3.5-5.1); Sodium 137 mEq/L (136-145); eGFR For African Americans > 60 (> 60); eGFR For Non-African Americans > 60 (> 60)
[2021-01-21] MEDS: *HR* Enoxaparin 40 MG/0.4 ML SYRINGE SQ SCH (05:25)
[2021-01-21] MEDS: Vancomycin 1,750 MG/517.5 ML IV.SOLN IVPB SCH ×3 (05:27→20:28)
[2021-01-21] MEDS: Pregabalin 75 MG CAPSULE PO SCH ×2 (09:06→20:29)
[2021-01-21] MEDS: Aspirin Enteric Coated 81 MG Tablet PO SCH (09:06)
[2021-01-21] MEDS: Venlafaxine XR (24 HR) 75 MG CAP.ER.24H PO SCH (09:07)
[2021-01-21] MEDS: lamoTRIgine 25 MG TABLET PO SCH (09:07)
[2021-01-21] MEDS: Isosorbide MONOnitrate (24 HR) 30 MG TAB.ER.24H PO SCH (09:07)
[2021-01-21] MEDS: carvediloL 6.25 MG TABLET PO SCH ×2 (09:07→18:01)
[2021-01-21] MEDS: *HR* Insulin Regular U-500 500 UNIT/ML SUBQ SCH ×3 (09:09→18:11)
[2021-01-21] MEDS: Losartan/HCTZ 50-12.5 TABLET PO SCH (09:34)
[2021-01-21] MEDS: *HR* HYDROcodone/Acet 5/325 mg TABLET PO PRN (13:51)
[2021-01-21] MEDS: *HR* OxyCODONE Immed Rel 5 MG TABLET PO PRN (20:29)
[2021-01-21] MEDS: rOPINIRole 0.25 MG TABLET PO SCH (20:30)
[2021-01-22] MEDS: Piperacillin/Tazobactam 3.375 GM in 0.9 % Sodium Chloride Mini Bag 100 ML IVPB SCH ×3 (00:19→17:19)
[2021-01-22] MEDS: Vancomycin 2,000 MG/520 ML IV.SOLN IVPB SCH (01:17)
[2021-01-22] MEDS: Vancomycin 1,750 MG/517.5 ML IV.SOLN IVPB SCH ×3 (04:27→20:41)
[2021-01-22] MEDS: *HR* Enoxaparin 40 MG/0.4 ML SYRINGE SQ SCH (04:27)
[2021-01-22 05:50] LABS: Hematocrit 36.5 % (37.5-50.1); Hemoglobin 11.4 g/dL (12.9-16.9); Mean Corpuscular HGB Conc 31.2 g/dL (31.6-35.5); Mean Corpuscular Hemoglobin 25.3 pg (28.0-33.3); Mean Corpuscular Volume 80.9 fL (83.0-100.0); Mean Platelet Volume 9.4 fL (9.4-12.4); Platelet Count 269 K/mcL (140-400); Red Blood Count 4.51 M/mcL (4.19-5.50); Red Cell Distribution Width 14.2 % (11.5-14.5); White Blood Count 5.1 K/mcL (4.3-11.1)
[2021-01-22 06:11] LABS: BUN/Creatinine Ratio 21 (6-26); Blood Urea Nitrogen 17 mg/dL (6-20); Calcium 8.5 mg/dL (8.6-10.3); Carbon Dioxide 27 mEq/L (23-29); Chloride 106 mEq/L (98-107); Glucose 104 mg/dL (70-105); Osmolality,Calculated 290 (280-300); Potassium 3.3 mEq/L (3.5-5.1); Sodium 139 mEq/L (136-145); eGFR For African Americans > 60 (> 60); eGFR For Non-African Americans > 60 (> 60)
[2021-01-22] MEDS: lamoTRIgine 25 MG TABLET PO SCH (08:52)
[2021-01-22] MEDS: carvediloL 6.25 MG TABLET PO SCH ×2 (08:52→17:19)
[2021-01-22] MEDS: Isosorbide MONOnitrate (24 HR) 30 MG TAB.ER.24H PO SCH (08:52)
[2021-01-22] MEDS: Pregabalin 75 MG CAPSULE PO SCH ×2 (08:53→20:40)
[2021-01-22] MEDS: Aspirin Enteric Coated 81 MG Tablet PO SCH (08:53)
[2021-01-22] MEDS: *HR* Insulin Regular U-500 500 UNIT/ML SUBQ SCH ×3 (08:53→17:19)
[2021-01-22] MEDS: Venlafaxine XR (24 HR) 75 MG CAP.ER.24H PO SCH (08:53)
[2021-01-22] MEDS: Losartan/HCTZ 50-12.5 TABLET PO SCH (08:53)
[2021-01-22] MEDS: *HR* HYDROcodone/Acet 5/325 mg TABLET PO PRN (13:26)
[2021-01-22] MEDS: *HR* OxyCODONE Immed Rel 5 MG TABLET PO PRN (20:40)
[2021-01-22] MEDS: rOPINIRole 0.25 MG TABLET PO SCH (20:40)
[2021-01-23] MEDS: Piperacillin/Tazobactam 3.375 GM in 0.9 % Sodium Chloride Mini Bag 100 ML IVPB SCH ×3 (00:16→16:37)
[2021-01-23 02:47] LABS: Hematocrit 36.8 % (37.5-50.1); Hemoglobin 11.2 g/dL (12.9-16.9); Mean Corpuscular HGB Conc 30.4 g/dL (31.6-35.5); Mean Corpuscular Hemoglobin 24.8 pg (28.0-33.3); Mean Corpuscular Volume 81.6 fL (83.0-100.0); Mean Platelet Volume 9.9 fL (9.4-12.4); Platelet Count 285 K/mcL (140-400); Red Blood Count 4.51 M/mcL (4.19-5.50); Red Cell Distribution Width 14.3 % (11.5-14.5); White Blood Count 5.2 K/mcL (4.3-11.1)
[2021-01-23 03:00] LABS: BUN/Creatinine Ratio 18 (6-26); Blood Urea Nitrogen 16 mg/dL (6-20); Calcium 8.6 mg/dL (8.6-10.3); Carbon Dioxide 28 mEq/L (23-29); Chloride 105 mEq/L (98-107); Glucose 76 mg/dL (70-105); Osmolality,Calculated 286 (280-300); Potassium 3.5 mEq/L (3.5-5.1); Sodium 138 mEq/L (136-145); eGFR For African Americans > 60 (> 60); eGFR For Non-African Americans > 60 (> 60)
[2021-01-23] MEDS: Vancomycin 1,750 MG/517.5 ML IV.SOLN IVPB SCH ×2 (04:17→13:04)
[2021-01-23] MEDS: *HR* Enoxaparin 40 MG/0.4 ML SYRINGE SQ SCH (04:18)
[2021-01-23] MEDS: Losartan/HCTZ 50-12.5 TABLET PO SCH (07:58)
[2021-01-23] MEDS: Venlafaxine XR (24 HR) 75 MG CAP.ER.24H PO SCH (07:58)
[2021-01-23] MEDS: Pregabalin 75 MG CAPSULE PO SCH ×2 (07:58→22:38)
[2021-01-23] MEDS: Isosorbide MONOnitrate (24 HR) 30 MG TAB.ER.24H PO SCH (07:58)
[2021-01-23] MEDS: carvediloL 6.25 MG TABLET PO SCH ×2 (07:58→16:37)
[2021-01-23] MEDS: lamoTRIgine 25 MG TABLET PO SCH (07:58)
[2021-01-23] MEDS: Aspirin Enteric Coated 81 MG Tablet PO SCH (07:58)
[2021-01-23] MEDS: *HR* Insulin Regular U-500 500 UNIT/ML SUBQ SCH ×3 (07:59→16:37)
[2021-01-23] MEDS: *HR* OxyCODONE Immed Rel 5 MG TABLET PO PRN (13:08)
[2021-01-23] MEDS: *HR* HYDROcodone/Acet 5/325 mg TABLET PO PRN ×2 (16:41→22:47)
[2021-01-23] MEDS ORDERED: Vancomycin 1,500 MG/265 ML IV.SOLN IVPB SCH (21:00)
[2021-01-23] MEDS: Vancomycin 1,500 MG/265 ML IV.SOLN IVPB SCH (22:35)
[2021-01-23] MEDS: rOPINIRole 0.25 MG TABLET PO SCH (22:38)
[2021-01-24] MEDS: Piperacillin/Tazobactam 3.375 GM in 0.9 % Sodium Chloride Mini Bag 100 ML IVPB SCH ×2 (00:41→08:39)
[2021-01-24 05:22] LABS: Hematocrit 36.9 % (37.5-50.1); Hemoglobin 11.4 g/dL (12.9-16.9); Mean Corpuscular HGB Conc 30.9 g/dL (31.6-35.5); Mean Corpuscular Hemoglobin 25.1 pg (28.0-33.3); Mean Corpuscular Volume 81.3 fL (83.0-100.0); Mean Platelet Volume 9.8 fL (9.4-12.4); Platelet Count 282 K/mcL (140-400); Red Blood Count 4.54 M/mcL (4.19-5.50); Red Cell Distribution Width 14.5 % (11.5-14.5); White Blood Count 4.9 K/mcL (4.3-11.1)
[2021-01-24 05:40] LABS: BUN/Creatinine Ratio 16 (6-26); Blood Urea Nitrogen 13 mg/dL (6-20); Calcium 8.4 mg/dL (8.6-10.3); Carbon Dioxide 29 mEq/L (23-29); Chloride 105 mEq/L (98-107); Glucose 172 mg/dL (70-105); Osmolality,Calculated 292 (280-300); Potassium 3.7 mEq/L (3.5-5.1); Sodium 139 mEq/L (136-145); eGFR For African Americans > 60 (> 60); eGFR For Non-African Americans > 60 (> 60)
[2021-01-24] MEDS: Vancomycin 1,500 MG/265 ML IV.SOLN IVPB SCH ×3 (05:47→23:42)
[2021-01-24] MEDS: *HR* Enoxaparin 40 MG/0.4 ML SYRINGE SQ SCH (05:48)
[2021-01-24] MEDS: lamoTRIgine 25 MG TABLET PO SCH ×2 (08:33→08:35)
[2021-01-24] MEDS: carvediloL 6.25 MG TABLET PO SCH ×2 (08:36→17:20)
[2021-01-24] MEDS: Aspirin Enteric Coated 81 MG Tablet PO SCH (08:37)
[2021-01-24] MEDS: Losartan/HCTZ 50-12.5 TABLET PO SCH (08:37)
[2021-01-24] MEDS: Isosorbide MONOnitrate (24 HR) 30 MG TAB.ER.24H PO SCH (08:38)
[2021-01-24] MEDS: Pregabalin 75 MG CAPSULE PO SCH ×2 (08:38→21:38)
[2021-01-24] MEDS: Venlafaxine XR (24 HR) 75 MG CAP.ER.24H PO SCH (08:38)
[2021-01-24] MEDS: *HR* Insulin Regular U-500 500 UNIT/ML SUBQ SCH ×3 (08:57→17:10)
[2021-01-24] MEDS ORDERED: Lidocaine Viscous Oral Soln 15 ML SOLUTION ONE (15:17)
[2021-01-24] MEDS: *HR* Dextrose 50 % in Water (Vial) 50 ML VIAL IVP PRN (15:36)
[2021-01-24] MEDS: *HR* FentaNYL (PF) 100 MCG/2 ML VIAL ONE ×2 (15:45→15:50)
[2021-01-24] MEDS: *HR* Midazolam HCl 5 MG/5 ML VIAL IVP ONE ×2 (15:45→15:50)
[2021-01-24] MEDS: *HR* OxyCODONE Immed Rel 5 MG TABLET PO PRN (18:21)
[2021-01-24] MEDS: rOPINIRole 0.25 MG TABLET PO SCH (21:38)
[2021-01-24] MEDS: Vancomycin 1,750 MG/517.5 ML IV.SOLN IVPB SCH (23:35)
[2021-01-24] MEDS: *HR* HYDROcodone/Acet 5/325 mg TABLET PO PRN (23:35)
[2021-01-25 04:42] LABS: Hematocrit 36.9 % (37.5-50.1); Hemoglobin 11.8 g/dL (12.9-16.9); Mean Corpuscular Volume 81.5 fL (83.0-100.0); Mean Platelet Volume 9.9 fL (9.4-12.4); Platelet Count 316 K/mcL (140-400); Red Blood Count 4.53 M/mcL (4.19-5.50); Red Cell Distribution Width 14.7 % (11.5-14.5); White Blood Count 5.8 K/mcL (4.3-11.1)
[2021-01-25 04:57] LABS: BUN/Creatinine Ratio 14 (6-26); Blood Urea Nitrogen 13 mg/dL (6-20); Calcium 8.5 mg/dL (8.6-10.3); Carbon Dioxide 29 mEq/L (23-29); Chloride 102 mEq/L (98-107); Glucose 233 mg/dL (70-105); Osmolality,Calculated 294 (280-300); Potassium 3.9 mEq/L (3.5-5.1); Sodium 138 mEq/L (136-145); eGFR For African Americans > 60 (> 60); eGFR For Non-African Americans > 60 (> 60)
[2021-01-25] MEDS: *HR* Enoxaparin 40 MG/0.4 ML SYRINGE SQ SCH (07:00)
[2021-01-25] MEDS: Losartan/HCTZ 50-12.5 TABLET PO SCH (09:31)
[2021-01-25] MEDS: Aspirin Enteric Coated 81 MG Tablet PO SCH (09:31)
[2021-01-25] MEDS: Venlafaxine XR (24 HR) 75 MG CAP.ER.24H PO SCH (09:31)
[2021-01-25] MEDS: carvediloL 6.25 MG TABLET PO SCH ×2 (09:31→16:28)
[2021-01-25] MEDS: Pregabalin 75 MG CAPSULE PO SCH ×2 (09:31→20:07)
[2021-01-25] MEDS: Isosorbide MONOnitrate (24 HR) 30 MG TAB.ER.24H PO SCH (09:31)
[2021-01-25] MEDS: Vancomycin 1,750 MG/517.5 ML IV.SOLN IVPB SCH (09:32)
[2021-01-25] MEDS: *HR* Insulin Regular U-500 500 UNIT/ML SUBQ SCH ×3 (09:32→16:28)
[2021-01-25] MEDS: lamoTRIgine 25 MG TABLET PO SCH (09:33)
[2021-01-25] MEDS: *HR* HYDROcodone/Acet 5/325 mg TABLET PO PRN ×2 (09:40→16:38)
[2021-01-25] MEDS ORDERED: Lidocaine -MPF 1% 5 ML AMPUL INFILT ONE (13:45)
[2021-01-25] MEDS: Ampicillin 2 MG in 0.9 % Sodium Chloride Mini Bag 100 ML IVPB SCH ×2 (16:28→20:04)
[2021-01-25] MEDS: rOPINIRole 0.25 MG TABLET PO SCH (20:06)
[2021-01-25] MEDS: *HR* OxyCODONE Immed Rel 5 MG TABLET PO PRN (20:20)
[2021-01-25] MEDS: Melatonin 3 MG TABLET PO PRN (20:21)
[2021-01-26] MEDS: Ampicillin 2 MG in 0.9 % Sodium Chloride Mini Bag 100 ML IVPB SCH ×4 (00:58→11:58)
[2021-01-26] MEDS: *HR* Enoxaparin 40 MG/0.4 ML SYRINGE SQ SCH (04:54)
[2021-01-26] MEDS: Aspirin Enteric Coated 81 MG Tablet PO SCH (08:42)
[2021-01-26] MEDS: Isosorbide MONOnitrate (24 HR) 30 MG TAB.ER.24H PO SCH (08:42)
[2021-01-26] MEDS: Losartan/HCTZ 50-12.5 TABLET PO SCH (08:42)
[2021-01-26] MEDS: Pregabalin 75 MG CAPSULE PO SCH ×2 (08:42→20:15)
[2021-01-26] MEDS: Venlafaxine XR (24 HR) 75 MG CAP.ER.24H PO SCH (08:43)
[2021-01-26] MEDS: *HR* Insulin Regular U-500 500 UNIT/ML SUBQ SCH ×3 (08:43→16:52)
[2021-01-26] MEDS: carvediloL 6.25 MG TABLET PO SCH ×2 (08:43→16:52)
[2021-01-26] MEDS: *HR* OxyCODONE Immed Rel 5 MG TABLET PO PRN ×2 (08:43→16:52)
[2021-01-26 10:24] LABS: Hemoglobin 11.8 g/dL (12.9-16.9); Mean Corpuscular HGB Conc 31.1 g/dL (31.6-35.5); Mean Corpuscular Hemoglobin 25.5 pg (28.0-33.3); Mean Corpuscular Volume 82.1 fL (83.0-100.0); Mean Platelet Volume 9.4 fL (9.4-12.4); Platelet Count 271 K/mcL (140-400); Red Blood Count 4.63 M/mcL (4.19-5.50); Red Cell Distribution Width 14.8 % (11.5-14.5); White Blood Count 6.1 K/mcL (4.3-11.1)
[2021-01-26 10:48] LABS: BUN/Creatinine Ratio 22 (6-26); Blood Urea Nitrogen 16 mg/dL (6-20); Calcium 8.5 mg/dL (8.6-10.3); Carbon Dioxide 30 mEq/L (23-29); Chloride 105 mEq/L (98-107); Glucose 192 mg/dL (70-105); Osmolality,Calculated 296 (280-300); Potassium 4.1 mEq/L (3.5-5.1); Sodium 140 mEq/L (136-145); eGFR For African Americans > 60 (> 60); eGFR For Non-African Americans > 60 (> 60)
[2021-01-26] MEDS: Ampicillin 2,000 MG in 0.9 % Sodium Chloride Mini Bag 100 ML IVPB SCH ×3 (16:52→23:49)
[2021-01-26] MEDS ORDERED: Lidocaine 4% CREAM (LMX) 5 GM TP PRN (18:58)
[2021-01-26] MEDS: rOPINIRole 0.25 MG TABLET PO SCH (20:15)
[2021-01-26] MEDS: Melatonin 3 MG TABLET PO PRN (22:11)
[2021-01-26] MEDS: *HR* HYDROcodone/Acet 5/325 mg TABLET PO PRN (22:11)
[2021-01-26] MEDS: *HR* Dextrose 50 % in Water (Vial) 50 ML VIAL IVP PRN (23:42)
[2021-01-27] MEDS: Ampicillin 2,000 MG in 0.9 % Sodium Chloride Mini Bag 100 ML IVPB SCH ×3 (04:02→11:47)
[2021-01-27] MEDS: *HR* Enoxaparin 40 MG/0.4 ML SYRINGE SQ SCH (04:18)
[2021-01-27 05:04] LABS: Hematocrit 36.7 % (37.5-50.1); Hemoglobin 11.1 g/dL (12.9-16.9); Mean Corpuscular HGB Conc 30.2 g/dL (31.6-35.5); Mean Corpuscular Hemoglobin 24.9 pg (28.0-33.3); Mean Corpuscular Volume 82.3 fL (83.0-100.0); Mean Platelet Volume 9.5 fL (9.4-12.4); Platelet Count 268 K/mcL (140-400); Red Blood Count 4.46 M/mcL (4.19-5.50); Red Cell Distribution Width 14.8 % (11.5-14.5); White Blood Count 6.5 K/mcL (4.3-11.1)
[2021-01-27 05:20] LABS: BUN/Creatinine Ratio 24 (6-26); Blood Urea Nitrogen 18 mg/dL (6-20); Calcium 8.7 mg/dL (8.6-10.3); Carbon Dioxide 30 mEq/L (23-29); Chloride 103 mEq/L (98-107); Glucose 144 mg/dL (70-105); Osmolality,Calculated 292 (280-300); Potassium 3.8 mEq/L (3.5-5.1); Sodium 139 mEq/L (136-145); eGFR For African Americans > 60 (> 60); eGFR For Non-African Americans > 60 (> 60)
[2021-01-27] MEDS: Losartan/HCTZ 50-12.5 TABLET PO SCH (08:54)
[2021-01-27] MEDS: Aspirin Enteric Coated 81 MG Tablet PO SCH (08:54)
[2021-01-27] MEDS: Venlafaxine XR (24 HR) 75 MG CAP.ER.24H PO SCH (08:54)
[2021-01-27] MEDS: Isosorbide MONOnitrate (24 HR) 30 MG TAB.ER.24H PO SCH (08:55)
[2021-01-27] MEDS: lamoTRIgine 25 MG TABLET PO SCH (08:55)
[2021-01-27] MEDS: carvediloL 6.25 MG TABLET PO SCH (08:55)
[2021-01-27] MEDS: Pregabalin 75 MG CAPSULE PO SCH (08:55)
[2021-01-27] MEDS: *HR* Insulin Regular U-500 500 UNIT/ML SUBQ SCH (09:21)
[2021-01-27 10:53] VITALS: BP 142/87; PULSE 64; TEMP 97.9; O2SAT 95
[2021-01-27] MEDS ORDERED: *HR* Insulin Regular U-500 500 UNIT/ML SUBQ SCH (12:00)
== END 2021-01-27 15:25 | disposition home health service (06) | DRG 380 ==
LOC: 2ANU 18:00 → EMEROOARM 18:00 → SUATTDRO 20:53 → 2ANU 22:04 → SUATTDRO 01-20 15:00
PROVIDERS: ADMIT Family Medicine; ATTEND Internal Medicine

== ENCOUNTER 2021-03-30 14:51 | Inpatient (IN) ==
[2021-03-30 16:05] LABS: Hematocrit 34.8 % (37.5-50.1); Mean Corpuscular HGB Conc 31.6 g/dL (31.6-35.5); Mean Platelet Volume 9.6 fL (9.4-12.4); Platelet Count 296 K/mcL (140-400); Red Blood Count 4.58 M/mcL (4.19-5.50); Red Cell Distribution Width 14.3 % (11.5-14.5); White Blood Count 3.2 K/mcL (4.3-11.1)
[2021-03-30 16:05] LABS: VBG HCO3 25 mEq/L (21-27); VBG PCO2 30 mmHg (41-51); VBG PH 7.53 pH Units (7.32-7.42); VBG PO2 123 mmHg (25-50)
[2021-03-30 16:17] LABS: Bilirubin,Urine Negative (Negative); Blood,Urine Trace (Negative); Clarity,Urine Clear (Clear); Color,Urine Yellow (Yellow); Glucose,Urine (UA) >=1000 mg/dL (Normal); Ketones,Urine Trace mg/dL (Negative); Leukocyte Esterase,Urine Negative (Negative); Mucus,Urine Few per lpf (None-Few); Nitrite,Urine Negative (Negative); Protein,Urine 70 mg/dL (Neg-Trace); RBC,Urine 0-3 per hpf (0-3); Squamous Epithelial Cell,Urine Few per hpf (None-Few); Urobilinogen,Urine Normal (Normal); WBC,Urine 0-3 per hpf (0-3)
[2021-03-30 16:30] LABS: Alanine Aminotransferase 20 Units/L (7-52); Albumin 3.5 g/dL (3.5-5.7); Albumin/Globulin Ratio 0.9 (1.1-2.2); Alkaline Phosphatase 110 Units/L (34-104); Aspartate Amino Transferase 13 Units/L (13-39); BUN/Creatinine Ratio 29 (6-26); Bilirubin,Direct 0.1 mg/dL (0.0-0.2); Bilirubin,Indirect 0.6 mg/dL (0.0-1.0); Bilirubin,Total 0.7 mg/dL (0.3-1.0); Blood Urea Nitrogen 28 mg/dL (6-20); Carbon Dioxide 25 mEq/L (23-29); Chloride 97 mEq/L (98-107); Globulin 3.7 g/dL (2.4-3.5); Glucose 364 mg/dL (70-105); Osmolality,Calculated 294 (280-300); Potassium 4.2 mEq/L (3.5-5.1); Sodium 132 mEq/L (136-145); Total Protein 7.2 g/dL (6.4-8.9); Troponin I < 0.03 ng/mL (< 0.04); eGFR For African Americans > 60 (> 60); eGFR For Non-African Americans > 60 (> 60)
[2021-03-30] MEDS ORDERED: 0.9 % Sodium Chloride 1,000 ML IVC ONE (17:11)
[2021-03-30] MEDS ORDERED: Piperacillin/Tazobactam 4.5 GM in Water for inj. (sterile) 20 ML IVP ONE (17:12)
[2021-03-30 17:41] LABS: Eosinophils % 0.9 %; Immature Granulocytes % 0.6 % (0-4); Lymphocytes # 0.3 K/mcL (0.6-4.6); Lymphocytes % 7.9 %; Monocytes % 0.6 %
[2021-03-30 17:43] LABS: Neutrophils # 2.9 K/mcL (1.6-8.9)
[2021-03-30] MEDS ORDERED: Vancomycin 2,000 MG/520 ML IV.SOLN IVPB ONE (18:00)
[2021-03-30] MEDS ORDERED: Piperacillin/Tazobactam 3.375 GM in 0.9 % Sodium Chloride Mini Bag 100 ML IVPB ONE (18:00)
[2021-03-30 18:15] LABS: Platelet Estimate Normal (Normal)
[2021-03-30 18:35] LABS: Influenza A PCR Negative (Negative); Influenza B PCR Negative (Negative); Resp. Syncytial Virus PCR Negative (Negative)
[2021-03-30 18:39] LABS: SARS-CoV-2 by PCR (In House) Negative (Negative)
[2021-03-30] MEDS ORDERED: Isovue-370 500 ML BOTTLE IVP ONE (18:42)
[2021-03-30 19:42] LABS: C-Reactive Protein 271 mg/L (Less than 10)
[2021-03-30] MEDS ORDERED: Ketorolac 15 MG/ML VIAL IVP ONE (19:43)
[2021-03-30] MEDS ORDERED: Naloxone 0.4 MG/ML INJ IVP PRN (20:39)
[2021-03-30] MEDS ORDERED: Ondansetron 4 MG/2 ML VIAL IVP PRN (20:44)
[2021-03-30] MEDS ORDERED: Melatonin 3 MG TABLET PO PRN (20:44)
[2021-03-30] MEDS ORDERED: *HR* Promethazine 25 MG/ML VIAL IM PRN (20:44)
[2021-03-30] MEDS ORDERED: Dextrose Gel 15 GM/37.5 ML TUBE PO PRN ×2 (20:54)
[2021-03-30] MEDS ORDERED: D5% in Water 1,000 ML IVC PRN (20:54)
[2021-03-30] MEDS ORDERED: *HR* Dextrose 50 % in Water (Syg) 50 ML SYRINGE IVP PRN (21:16)
[2021-03-30 21:36] LABS: BUN/Creatinine Ratio 20 (6-26); Blood Urea Nitrogen 31 mg/dL (6-20); Calcium 8.6 mg/dL (8.6-10.3); Carbon Dioxide 24 mEq/L (23-29); Chloride 96 mEq/L (98-107); Glucose 444 mg/dL (70-105); Osmolality,Calculated 300 (280-300); Potassium 3.7 mEq/L (3.5-5.1); Sodium 132 mEq/L (136-145); eGFR For African Americans > 60 (> 60); eGFR For Non-African Americans 51 (> 60)
[2021-03-30] MEDS: Ringers Solution, Lactated 500 ML IVC ONE (22:52)
[2021-03-30] MEDS ORDERED: Insulin Human Regular 10 UNIT in 0.9 % Sodium Chloride 10 ML IV ONE (23:15)
[2021-03-31] MEDS ORDERED: Piperacillin/Tazobactam 3.375 GM in 0.9 % Sodium Chloride Mini Bag 100 ML IVPB SCH
[2021-03-31] MEDS: Ringers Solution, Lactated 1,000 ML IVC SCH ×2 (00:02→04:59)
[2021-03-31] MEDS: *HR* HYDROcodone/Acet 5/325 mg TABLET PO PRN (00:18)
[2021-03-31] MEDS ORDERED: Ringers Solution, Lactated 500 ML IVC ONE (01:30)
[2021-03-31] MEDS: Ringers Solution, Lactated 500 ML IVC ONE (01:48)
[2021-03-31] MEDS: Acetaminophen 325 MG TABLET PO PRN ×2 (02:23→15:27)
[2021-03-31] MEDS ORDERED: Ketorolac 15 MG/ML VIAL IVP ONE (05:53)
[2021-03-31] MEDS ORDERED: Insulin Human Regular 10 UNIT in 0.9 % Sodium Chloride 10 ML IV ONE ×2 (06:15→08:53)
[2021-03-31] MEDS: carvediloL 6.25 MG TABLET PO SCH ×2 (06:36→17:28)
[2021-03-31] MEDS ORDERED: Vancomycin 1,000 MG VIAL ONE (07:27)
[2021-03-31] MEDS ORDERED: *HR* FentaNYL (PF) 100 MCG/2 ML VIAL ONE (07:30)
[2021-03-31] MEDS ORDERED: *HR* Midazolam HCl 2 MG/2 ML VIAL ONE (07:30)
[2021-03-31] MEDS ORDERED: Ondansetron 4 MG/2 ML VIAL ONE (07:30)
[2021-03-31] MEDS ORDERED: Lidocaine -MPF 2% 2 ML VIAL ONE (07:30)
[2021-03-31] MEDS ORDERED: *HR* Vasopressin 20 UNIT/ML VIAL ONE (07:49)
[2021-03-31] MEDS ORDERED: *HR* Insulin Regular U-500 500 UNIT/ML SUBQ SCH ×2 (08:00→12:00)
[2021-03-31] MEDS: Aspirin Enteric Coated 81 MG Tablet PO SCH (08:30)
[2021-03-31] MEDS ORDERED: Vancomycin 1,000 MG in Sodium Chloride IRRigation 250 ML IR ONE (08:53)
[2021-03-31] MEDS ORDERED: Insulin Regular, Human 100 UNIT/ML ONE (09:16)
[2021-03-31] MEDS ORDERED: *HR* Dextrose 50 % in Water (Vial) 50 ML VIAL IVP PRN (10:31)
[2021-03-31] MEDS ORDERED: D5% in Water 1,000 ML IVC PRN (10:31)
[2021-03-31] MEDS ORDERED: Dextrose Gel 15 GM/37.5 ML TUBE PO PRN ×2 (10:31)
[2021-03-31] MEDS ORDERED: Ringers Solution, Lactated 1,000 ML IV STA (11:00)
[2021-03-31] MEDS: Insulin LISPRO 300 UNITS/3 ML VIAL SUBQ SCH ×3 (11:11→21:05)
[2021-03-31] MEDS: Vancomycin 2,000 MG/520 ML IV.SOLN IVPB SCH ×2 (11:11→21:04)
[2021-03-31] MEDS ORDERED: Ringers Solution, Lactated 1,000 ML IV SCH (12:05)
[2021-03-31 12:13] LABS: Acinetobacter baumannii by PCR Not Detected (Not Detect); Candida albicans by PCR Not Detected (Not Detect); Candida glabrata by PCR Not Detected (Not Detect); Candida krusei by PCR Not Detected (Not Detect); Candida parapsilosis by PCR Not Detected (Not Detect); Candida tropicalis by PCR Not Detected (Not Detect); Enterobacter cloacae Cmplx PCR Not Detected (Not Detect); Enterobacteriaceae by PCR Not Detected (Not Detect); Enterococcus by PCR Not Detected (Not Detect); Escherichia coli by PCR Not Detected (Not Detect); Klebsiella oxytoca by PCR Not Detected (Not Detect); Klebsiella pneumoniae by PCR Not Detected (Not Detect); Proteus by PCR Not Detected (Not Detect); Pseudomonas aeruginosa by PCR Not Detected (Not Detect); Serratia marcescens by PCR Not Detected (Not Detect); Staphylococcus aureus by PCR DETECTED (Not Detect); Streptococcus agalactiae(B)PCR DETECTED (Not Detect); Streptococcus by PCR Not Detected (Not Detect); Streptococcus pneumoniae PCR Not Detected (Not Detect); Streptococcus pyogenes (A) PCR Not Detected (Not Detect); mecA Methicillin-Resist Gene DETECTED (Not Detect)
[2021-03-31] MEDS ORDERED: Insulin LISPRO 300 UNITS/3 ML VIAL SUBQ ONE (12:22)
[2021-03-31] MEDS: Insulin DETEMIR 100 UNIT/ML X5UNITS SUBQ SCH ×2 (12:29→21:05)
[2021-03-31] MEDS: Piperacillin/Tazobactam 3.375 GM in 0.9 % Sodium Chloride Mini Bag 100 ML IVPB SCH ×2 (15:30→21:01)
[2021-03-31 16:08] LABS: Hematocrit 29.9 % (37.5-50.1); Mean Corpuscular HGB Conc 30.8 g/dL (31.6-35.5); Mean Corpuscular Hemoglobin 24.5 pg (28.0-33.3); Mean Corpuscular Volume 79.5 fL (83.0-100.0); Platelet Count 182 K/mcL (140-400); Red Blood Count 3.76 M/mcL (4.19-5.50); Red Cell Distribution Width 14.9 % (11.5-14.5)
[2021-03-31 16:16] LABS: INR 1.6; Prothrombin Time 17.7 Seconds (9.4-12.1)
[2021-03-31 16:18] LABS: Hemoglobin 9.2 g/dL (12.9-16.9); White Blood Count 9.3 K/mcL (4.3-11.1)
[2021-03-31 16:24] LABS: Albumin 2.9 g/dL (3.5-5.7); Albumin/Globulin Ratio 0.9 (1.1-2.2); Bilirubin,Total 0.6 mg/dL (0.3-1.0); Calcium 7.8 mg/dL (8.6-10.3); Globulin 3.3 g/dL (2.4-3.5); Magnesium 1.2 mg/dL (1.6-2.6); Potassium 4.1 mEq/L (3.5-5.1); Total Protein 6.2 g/dL (6.4-8.9)
[2021-03-31 17:14] LABS: Lymphocytes # 0.6 K/mcL (0.6-4.6); Monocytes # 0.4 K/mcL (0.0-1.3); Neutrophils # 8.4 K/mcL (1.6-8.9); Platelet Estimate Normal (Normal)
[2021-03-31] MEDS ORDERED: Ringers Solution, Lactated 1,000 ML IVC SCH (17:45)
[2021-03-31 19:42] LABS: Estimated Average Glucose 344 mg/dl; Hemoglobin A1C 13.6 %
[2021-03-31] MEDS ORDERED: Insulin DETEMIR 100 UNIT/ML X5UNITS SUBQ SCH (21:00)
[2021-04-01] MEDS: Piperacillin/Tazobactam 3.375 GM in 0.9 % Sodium Chloride Mini Bag 100 ML IVPB SCH ×3 (04:26→21:30)
[2021-04-01 04:53] LABS: Hematocrit 26.7 % (37.5-50.1); Hemoglobin 8.1 g/dL (12.9-16.9); Lymphocytes # 0.7 K/mcL (0.6-4.6); Mean Corpuscular HGB Conc 30.3 g/dL (31.6-35.5); Mean Corpuscular Hemoglobin 23.9 pg (28.0-33.3); Mean Corpuscular Volume 78.8 fL (83.0-100.0); Mean Platelet Volume 10.6 fL (9.4-12.4); Platelet Count 179 K/mcL (140-400); Red Blood Count 3.39 M/mcL (4.19-5.50); Red Cell Distribution Width 14.8 % (11.5-14.5); White Blood Count 5.9 K/mcL (4.3-11.1)
[2021-04-01 05:10] LABS: BUN/Creatinine Ratio 28 (6-26); Blood Urea Nitrogen 34 mg/dL (6-20); Calcium 7.7 mg/dL (8.6-10.3); Carbon Dioxide 24 mEq/L (23-29); Chloride 100 mEq/L (98-107); Glucose 358 mg/dL (70-105); Osmolality,Calculated 296 (280-300); Potassium 3.6 mEq/L (3.5-5.1); Sodium 132 mEq/L (136-145); eGFR For African Americans > 60 (> 60); eGFR For Non-African Americans > 60 (> 60)
[2021-04-01 05:57] LABS: Monocytes # 0.6 K/mcL (0.0-1.3); Neutrophils # 4.6 K/mcL (1.6-8.9); Platelet Estimate Normal (Normal)
[2021-04-01] MEDS: Insulin LISPRO 300 UNITS/3 ML VIAL SUBQ SCH ×4 (08:48→21:32)
[2021-04-01] MEDS: Insulin DETEMIR 100 UNIT/ML X5UNITS SUBQ SCH ×2 (08:49→21:32)
[2021-04-01] MEDS: Cholecalciferol (D-3) 1,000 UNIT (25MCG) TABLET PO SCH (08:49)
[2021-04-01] MEDS: Topiramate 25 MG TABLET PO SCH (08:49)
[2021-04-01] MEDS: lamoTRIgine 25 MG TABLET PO SCH (08:49)
[2021-04-01] MEDS: Aspirin Enteric Coated 81 MG Tablet PO SCH (08:50)
[2021-04-01] MEDS: Venlafaxine XR (24 HR) 75 MG CAP.ER.24H PO SCH (08:50)
[2021-04-01] MEDS: carvediloL 6.25 MG TABLET PO SCH ×2 (08:50→17:02)
[2021-04-01] MEDS: Vancomycin 1,500 MG/265 ML IV.SOLN IVPB SCH ×2 (10:15→17:02)
[2021-04-01] MEDS: *HR* OxyCODONE Immed Rel 5 MG TABLET PO PRN (10:22)
[2021-04-01] MEDS: *HR* HYDROcodone/Acet 5/325 mg TABLET PO PRN ×2 (12:39→21:29)
[2021-04-01] MEDS: Fluticasone Propionate Nasal 50 MCG/SPRAY BOTTLE NS SCH (12:49)
[2021-04-01] MEDS ORDERED: Perflutren Lipid Microsphere 1.3 ML in 0.9 % Sodium Chloride 8.7 ML IVP PRN (15:40)
[2021-04-01] MEDS ORDERED: Insulin LISPRO 300 UNITS/3 ML VIAL SUBQ SCH (17:00)
[2021-04-01] MEDS: *HR* Heparin 5,000 UNIT/ML VIAL SQ SCH (17:06)
[2021-04-02] MEDS: Vancomycin 1,500 MG/265 ML IV.SOLN IVPB SCH ×2 (01:07→09:25)
[2021-04-02] MEDS: Piperacillin/Tazobactam 3.375 GM in 0.9 % Sodium Chloride Mini Bag 100 ML IVPB SCH ×3 (05:30→21:36)
[2021-04-02] MEDS: *HR* Heparin 5,000 UNIT/ML VIAL SQ SCH ×2 (05:32→16:28)
[2021-04-02 08:59] LABS: Basophils % 0.3 %; Eosinophils # 0.2 K/mcL (0.0-0.6); Hematocrit 27.2 % (37.5-50.1); Hemoglobin 8.4 g/dL (12.9-16.9); Immature Granulocytes % 1.3 % (0-4); Lymphocytes # 0.9 K/mcL (0.6-4.6); Lymphocytes % 23.2 %; Mean Corpuscular HGB Conc 30.9 g/dL (31.6-35.5); Mean Corpuscular Hemoglobin 24.3 pg (28.0-33.3); Mean Corpuscular Volume 78.6 fL (83.0-100.0); Mean Platelet Volume 10.9 fL (9.4-12.4); Monocytes # 0.5 K/mcL (0.0-1.3); Monocytes % 12.1 %; Neutrophils # 2.2 K/mcL (1.6-8.9); Nucleated Red Blood Cells 0.5 /100 WBC (0); Platelet Count 189 K/mcL (140-400); Red Blood Count 3.46 M/mcL (4.19-5.50); Red Cell Distribution Width 15.1 % (11.5-14.5); Segmented Neutrophils % 59.1 %; White Blood Count 3.7 K/mcL (4.3-11.1)
[2021-04-02] MEDS: Insulin LISPRO 300 UNITS/3 ML VIAL SUBQ SCH ×7 (09:18→21:33)
[2021-04-02] MEDS: Aspirin Enteric Coated 81 MG Tablet PO SCH (09:18)
[2021-04-02] MEDS: Venlafaxine XR (24 HR) 75 MG CAP.ER.24H PO SCH (09:18)
[2021-04-02] MEDS: lamoTRIgine 25 MG TABLET PO SCH (09:18)
[2021-04-02] MEDS: Cholecalciferol (D-3) 1,000 UNIT (25MCG) TABLET PO SCH (09:18)
[2021-04-02] MEDS: Insulin DETEMIR 100 UNIT/ML X5UNITS SUBQ SCH ×2 (09:18→21:32)
[2021-04-02] MEDS: carvediloL 6.25 MG TABLET PO SCH ×2 (09:18→16:28)
[2021-04-02] MEDS: Topiramate 25 MG TABLET PO SCH (09:18)
[2021-04-02] MEDS: Fluticasone Propionate Nasal 50 MCG/SPRAY BOTTLE NS SCH (09:20)
[2021-04-02 09:43] LABS: BUN/Creatinine Ratio 26 (6-26); Blood Urea Nitrogen 23 mg/dL (6-20); Calcium 8.1 mg/dL (8.6-10.3); Carbon Dioxide 28 mEq/L (23-29); Chloride 102 mEq/L (98-107); Glucose 325 mg/dL (70-105); Magnesium 1.8 mg/dL (1.6-2.6); Osmolality,Calculated 296 (280-300); Phosphorous 2.6 mg/dL (2.7-4.5); Potassium 3.9 mEq/L (3.5-5.1); Sodium 135 mEq/L (136-145); Vancomycin,Trough 13 mcg/mL (5-10); eGFR For African Americans > 60 (> 60); eGFR For Non-African Americans > 60 (> 60)
[2021-04-02] MEDS: *HR* OxyCODONE Immed Rel 5 MG TABLET PO PRN ×2 (11:43→21:38)
[2021-04-02] MEDS: Vancomycin 1,750 MG/517.5 ML IV.SOLN IVPB SCH (16:28)
[2021-04-03] MEDS: Vancomycin 1,750 MG/517.5 ML IV.SOLN IVPB SCH ×3 (02:05→19:45)
[2021-04-03] MEDS: *HR* Heparin 5,000 UNIT/ML VIAL SQ SCH ×2 (04:53→19:46)
[2021-04-03] MEDS: Piperacillin/Tazobactam 3.375 GM in 0.9 % Sodium Chloride Mini Bag 100 ML IVPB SCH (04:55)
[2021-04-03] MEDS: Cholecalciferol (D-3) 1,000 UNIT (25MCG) TABLET PO SCH (08:18)
[2021-04-03] MEDS: Topiramate 25 MG TABLET PO SCH (08:18)
[2021-04-03] MEDS: lamoTRIgine 25 MG TABLET PO SCH (08:19)
[2021-04-03] MEDS: Insulin LISPRO 300 UNITS/3 ML VIAL SUBQ SCH ×7 (08:19→22:30)
[2021-04-03] MEDS: Venlafaxine XR (24 HR) 75 MG CAP.ER.24H PO SCH (08:19)
[2021-04-03] MEDS: carvediloL 6.25 MG TABLET PO SCH ×2 (08:19→19:44)
[2021-04-03] MEDS: Aspirin Enteric Coated 81 MG Tablet PO SCH (08:19)
[2021-04-03] MEDS: Fluticasone Propionate Nasal 50 MCG/SPRAY BOTTLE NS SCH (08:20)
[2021-04-03] MEDS: Insulin DETEMIR 100 UNIT/ML X5UNITS SUBQ SCH ×2 (08:26→22:31)
[2021-04-03] MEDS: *HR* OxyCODONE Immed Rel 5 MG TABLET PO PRN (18:03)
[2021-04-03 18:43] LABS: C-Reactive Protein 80 mg/L (Less than 10); Vancomycin,Random 17 mcg/mL
[2021-04-03] MEDS: cefTRIAXone 2,000 MG in Water for inj. (sterile) 20 ML IVP SCH (19:45)
[2021-04-03] MEDS: metroNIDAZOLE 500 MG TABLET PO SCH ×2 (20:05→22:28)
[2021-04-03] MEDS: *HR* HYDROcodone/Acet 5/325 mg TABLET PO PRN (22:28)
[2021-04-03] MEDS: Vancomycin 1,500 MG/265 ML IV.SOLN IVPB SCH (22:41)
[2021-04-04] MEDS: metroNIDAZOLE 500 MG TABLET PO SCH ×4 (00:53→21:01)
[2021-04-04] MEDS: Vancomycin 1,500 MG/265 ML IV.SOLN IVPB SCH ×3 (04:14→23:52)
[2021-04-04 05:25] LABS: BUN/Creatinine Ratio 20 (6-26); Blood Urea Nitrogen 17 mg/dL (6-20); Calcium 8.4 mg/dL (8.6-10.3); Carbon Dioxide 26 mEq/L (23-29); Chloride 107 mEq/L (98-107); Glucose 213 mg/dL (70-105); Magnesium 1.7 mg/dL (1.6-2.6); Osmolality,Calculated 298 (280-300); Phosphorous 4.1 mg/dL (2.7-4.5); Sodium 140 mEq/L (136-145); eGFR For African Americans > 60 (> 60); eGFR For Non-African Americans > 60 (> 60)
[2021-04-04] MEDS: *HR* Heparin 5,000 UNIT/ML VIAL SQ SCH ×2 (06:16→17:50)
[2021-04-04] MEDS ORDERED: Lidocaine Viscous Oral Soln 15 ML SOLUTION MM PRN (09:12)
[2021-04-04] MEDS ORDERED: 0.9 % Sodium Chloride 500 ML IVC ONE (09:13)
[2021-04-04] MEDS ORDERED: Lidocaine -MPF 1% 5 ML AMPUL INFILT ONE (09:27)
[2021-04-04] MEDS: *HR* FentaNYL (PF) 100 MCG/2 ML VIAL IVP PRN ×3 (09:55→10:10)
[2021-04-04] MEDS: *HR* Midazolam HCl 5 MG/5 ML VIAL IVP PRN ×2 (09:55→10:00)
[2021-04-04] MEDS: Insulin LISPRO 300 UNITS/3 ML VIAL SUBQ SCH ×7 (11:08→21:06)
[2021-04-04] MEDS: Venlafaxine XR (24 HR) 75 MG CAP.ER.24H PO SCH (11:09)
[2021-04-04] MEDS: carvediloL 6.25 MG TABLET PO SCH ×2 (11:09→17:50)
[2021-04-04] MEDS: lamoTRIgine 25 MG TABLET PO SCH (11:09)
[2021-04-04] MEDS: Aspirin Enteric Coated 81 MG Tablet PO SCH (11:09)
[2021-04-04] MEDS: Topiramate 25 MG TABLET PO SCH (11:09)
[2021-04-04] MEDS: Cholecalciferol (D-3) 1,000 UNIT (25MCG) TABLET PO SCH (11:10)
[2021-04-04] MEDS: Insulin DETEMIR 100 UNIT/ML X5UNITS SUBQ SCH ×2 (14:32→21:02)
[2021-04-04] MEDS: Fluticasone Propionate Nasal 50 MCG/SPRAY BOTTLE NS SCH (14:32)
[2021-04-04] MEDS: cefTRIAXone 2,000 MG in Water for inj. (sterile) 20 ML IVP SCH (17:51)
[2021-04-04] MEDS: *HR* HYDROcodone/Acet 5/325 mg TABLET PO PRN (18:00)
[2021-04-05] MEDS: *HR* OxyCODONE Immed Rel 5 MG TABLET PO PRN ×3 (00:08→19:33)
[2021-04-05 06:21] LABS: Basophils # 0.1 K/mcL (0.0-0.2); Basophils % 1.3 %; Eosinophils # 0.2 K/mcL (0.0-0.6); Eosinophils % 2.8 %; Hematocrit 29.4 % (37.5-50.1); Hemoglobin 8.6 g/dL (12.9-16.9); Immature Granulocytes % 10.4 % (0-4); Lymphocytes # 1.6 K/mcL (0.6-4.6); Lymphocytes % 23.3 %; Mean Corpuscular HGB Conc 29.3 g/dL (31.6-35.5); Mean Corpuscular Hemoglobin 23.4 pg (28.0-33.3); Mean Corpuscular Volume 80.1 fL (83.0-100.0); Mean Platelet Volume 10.5 fL (9.4-12.4); Monocytes # 0.6 K/mcL (0.0-1.3); Monocytes % 8.9 %; Neutrophils # 3.6 K/mcL (1.6-8.9); Platelet Count 303 K/mcL (140-400); Red Blood Count 3.67 M/mcL (4.19-5.50); Red Cell Distribution Width 15.5 % (11.5-14.5); Segmented Neutrophils % 53.3 %
[2021-04-05 06:23] LABS: White Blood Count 6.8 K/mcL (4.3-11.1)
[2021-04-05 06:26] LABS: BUN/Creatinine Ratio 17 (6-26); Blood Urea Nitrogen 15 mg/dL (6-20); Calcium 8.5 mg/dL (8.6-10.3); Carbon Dioxide 29 mEq/L (23-29); Chloride 107 mEq/L (98-107); Glucose 211 mg/dL (70-105); Magnesium 1.6 mg/dL (1.6-2.6); Osmolality,Calculated 297 (280-300); Phosphorous 3.7 mg/dL (2.7-4.5); Potassium 4.1 mEq/L (3.5-5.1); Sodium 140 mEq/L (136-145); eGFR For African Americans > 60 (> 60); eGFR For Non-African Americans > 60 (> 60)
[2021-04-05] MEDS ORDERED: Vancomycin 1,500 MG/265 ML IV.SOLN IVPB SCH ×2 (07:00→18:30)
[2021-04-05] MEDS: Cholecalciferol (D-3) 1,000 UNIT (25MCG) TABLET PO SCH (08:43)
[2021-04-05] MEDS: Topiramate 25 MG TABLET PO SCH (08:43)
[2021-04-05] MEDS: carvediloL 6.25 MG TABLET PO SCH ×2 (08:43→16:52)
[2021-04-05] MEDS: lamoTRIgine 25 MG TABLET PO SCH (08:44)
[2021-04-05] MEDS: Aspirin Enteric Coated 81 MG Tablet PO SCH (08:44)
[2021-04-05] MEDS: Insulin DETEMIR 100 UNIT/ML X5UNITS SUBQ SCH (08:44)
[2021-04-05] MEDS: metroNIDAZOLE 500 MG TABLET PO SCH ×2 (08:44→16:51)
[2021-04-05] MEDS: Venlafaxine XR (24 HR) 75 MG CAP.ER.24H PO SCH (08:44)
[2021-04-05] MEDS: Insulin LISPRO 300 UNITS/3 ML VIAL SUBQ SCH ×6 (08:45→16:57)
[2021-04-05] MEDS: *HR* Heparin 5,000 UNIT/ML VIAL SQ SCH (08:46)
[2021-04-05] MEDS: Fluticasone Propionate Nasal 50 MCG/SPRAY BOTTLE NS SCH (08:52)
[2021-04-05 15:10] VITALS: BP 141/87; PULSE 60; TEMP 98.4; O2SAT 95
[2021-04-05] MEDS: cefTRIAXone 2,000 MG in Water for inj. (sterile) 20 ML IVP SCH (16:52)
== END 2021-04-05 19:43 | disposition home health service (06) | DRG 710 ==
LOC: 4WAOSI 14:51 → EMEROOARM 14:51 → SUATTDRO 21:14 → 4WAOSI 22:05 → SUATTDRO 03-31 18:51
PROVIDERS: ADMIT Family Medicine; ATTEND Student in an Organized Health Care Education/Training Program